=== PATIENT | male | born 1940 | race Caucasian/White ===

== ENCOUNTER → 2016-07-14 | Outpatient (CLI) | payer MEDICARE ==
--- NOTE | 2016-07-14 13:04 | US ---
EXAMINATION TYPE: US kidneys/renal and bladder DATE OF EXAM: 07/14/2016 12:25 PM COMPARISON: CT in pacs CLINICAL HISTORY: Incomplete Bladder Emptying R39.14. EXAM MEASUREMENTS: Right Kidney: 9.4 x 5.1 x 5.2 cm Left Kidney: 10.2 x 6.3 x 4.9 cm Post Void Residual Volume: 139.9 mL TECHNOLOGIST IMPRESSION: Right Kidney: small amount of fluid in renal pelvis Left Kidney: 1.0cm cystic area mid pole Bladder: irregular posterior bladder wall, enlarged prostate measuring 5.1 x 5.0 x 5.8cm indenting po sterior bladder wall Bilateral Jets seen: yes Normal Post Void Residual: no Gallbladder: multiple echogenic shadowing stones, wall measures wnl at 0.2cm The prostate is enlarged. Both ureteral jets were visualized. There is an abnormal post void residual of 139.9 mL. There is a 1 cm, simple appearing cyst in the mid polar region of the left kidney. There are gallstones within the gallbladder. IMPRESSION: 1. Simple appearing left renal cyst. 2. Prostatic enlargement. 3. Cholelithiasis.
== END | disposition home or self-care (01) ==
LOC: RADUSWWP 11:56
PROVIDERS: ATTEND Urology
DX: N40.1 Benign prostatic hyperplasia with lower urinary tract symptoms (principal); N28.1 Cyst of kidney, acquired; K80.20 Calculus of gallbladder without cholecystitis without obstruction; R39.14 Feeling of incomplete bladder emptying
CPT/HCPCS: 76770

== ENCOUNTER 2016-08-03 05:10 | Inpatient (IN) | payer MEDICARE ==
[2016-08-03] MEDS ORDERED: IPRATROPIUM-ALBUTEROL 3 ML NEB INHALATION STA (05:27)
[2016-08-03] MEDS ORDERED: methylPREDNISolone SOD SUCCI 125 MG/2 ML VIAL IV STA (05:27)
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
[2016-08-03 05:55] LABS: ALT 29 U/L (21-72); AST 22 U/L (17-59); Alkaline Phosphatase 49 U/L (38-126); Anion Gap 9 mmol/L; Basophils % (A) 1 %; Blood Urea Nitrogen 20 mg/dL (9-20); CH 33.8; CHCM 33.2; Calcium 8.8 mg/dL (8.4-10.2); Carbon Dioxide 26 mmol/L (22-30); Chloride 113 mmol/L (98-107); Eosinophils # (A) 0.3 k/uL (0-0.7); Eosinophils % (A) 4 %; Glucose 124 mg/dL (74-99); HCT 47.5 % (39.0-53.0); HDW 2.48; HGB 15.1 gm/dL (13.0-17.5); Luc # (Auto) 0.09; Luc % (Auto) 1; Lymphocytes # (A) 1.2 k/uL (1.0-4.8); Lymphocytes % (A) 15 %; MCH 32.6 pg (25.0-35.0); MCHC 31.9 g/dL (31.0-37.0); MCV 102.3 fL (80.0-100.0); Macrocytosis Slight; Mean Platelet Volume 7.8; Monocytes # (A) 0.4 k/uL (0-1.0); Monocytes % (A) 5 %; Neutrophils # (A) 5.8 k/uL (1.3-7.7); Neutrophils % (A) 73 %; Non-African American GFR(MDRD) 51 (>60 ml/min/1.73 sqM); Potassium 4.1 mmol/L (3.5-5.1); RBC 4.64 m/uL (4.30-5.90); RDW 13.7 % (11.5-15.5); Sodium 148 mmol/L (137-145); Total Bilirubin 1.2 mg/dL (0.2-1.3); Total Protein 6.2 g/dL (6.3-8.2); WBC 7.9 k/uL (3.8-10.6); WBC (Perox) 7.73
--- NOTE | 2016-08-03 06:03 | XR ---
EXAM: XR Chest, 1 View. CLINICAL HISTORY: Reason: difficulty breathing TECHNIQUE: Frontal view of the chest. COMPARISON: Chest x-ray dated 01/18/2016 FINDINGS: Lungs: Diffuse airspace opacities which likely represents pulmonary vascular congestion. No focal consolidation. Pleural space: No pleural effusion. No pneumothorax. Heart: Moderate enlargement of cardiomediastinal silhouette. Mediastinum: See above. Bones/joints: Degenerative changes of the osseous structures. IMPRESSION: Diffuse airspace opacities which likely represents pulmonary vascular congestion.
[2016-08-03 06:09] LABS: INR 1.1 (<1.1); Partial Thromboplastin Time 22.6 sec (22.0-30.0); Prothrombin Time 11.4 sec (9.0-12.0)
[2016-08-03 06:18] LABS: Creatine Kinase MB 1.2 ng/mL (0.0-2.4); Troponin I 0.031 ng/mL (0.000-0.034)
[2016-08-03] MEDS ORDERED: FUROSEMIDE 10 MG/ML 4 ML VIAL IV STA (06:24)
[2016-08-03] MEDS ORDERED: ASPIRIN 325 MG TAB PO STA (06:43)
[2016-08-03 07:27] LABS: Glucose,Whole Blood 124 mg/dL (75-99)
[2016-08-03 09:48] VITALS: BMI 22.6
[2016-08-03] MEDS: NITROGLYCERIN OINT 1 INCH/GM PACKET TOPICAL SCH ×4 (09:49→21:38)
[2016-08-03] MEDS ORDERED: MELATONIN 1 MG TAB PO PRN (11:06)
[2016-08-03] MEDS ORDERED: NITROGLYCERIN SL TABS 0.4 MG TAB SUBLINGUAL PRN (11:06)
[2016-08-03] MEDS ORDERED: ALBUTEROL NEBULIZED 2.5 MG/3 ML INHALATION PRN (11:06)
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
[2016-08-03] MEDS: CARVEDILOL 3.125 MG TAB PO SCH ×2 (12:26→17:18)
[2016-08-03] MEDS: CLOPIDOGREL 75 MG TAB PO SCH (12:26)
[2016-08-03] MEDS: SPIRONOLACTONE 25 MG TAB PO SCH (12:26)
[2016-08-03] MEDS: ATORVASTATIN 80 MG TAB PO SCH (12:26)
[2016-08-03] MEDS: FUROSEMIDE 10 MG/ML 4 ML VIAL IV SCH ×2 (14:24→21:38)
[2016-08-03] MEDS: LISINOPRIL 10 MG TAB PO SCH (14:24)
--- NOTE | 2016-08-03 22:36 | HP ---
Patient is a very pleasant 76-year-old gentleman who came in with complaints of shortness of breath. Patient is a difficult historian because of his significant hearing problems and these symptoms have been going on for about 2 to 3 days and denies any pedal edema. I am unable to get any history of orthopnea, PND. Patient denied any cough, runny nose, fever, chills and patient does not use any oxygen at home. In ER, patient was found to be in congestive heart failure with elevated JVD/ pulmonary edema, elevated BNP. His baseline creatinine is around 1.3 and patient's present creatinine is around that level. Patient had a stent to LAD in the past with impaired left ventricular systolic function of about 35% from his previous echocardiogram. Patient's shortness of breath did improve with IV Lasix. Patient takes 40 mg daily of Lasix at home and now he is on 40 IV q.8 hourly of Lasix with significant improvement in symptoms. REVIEW OF SYSTEMS: I am unable to obtain due to above-mentioned reasons. The rest of the 11 review of systems as mentioned in HPI. PAST MEDICAL HISTORY: Significant for coronary artery disease, asthma, gastroesophageal reflux disease, significant hearing problems, hyperlipidemia, hypertension, myocardial infarction in the past, benign prostatic hypertrophy. Patient had a cardiac catheterization and stent placement in the past, prostate surgery, tonsillectomy. SOCIAL HISTORY: Patient smokes 12 cigarettes per day. Denied any alcohol abuse or any drug abuse. FAMILY HISTORY: Patient was adopted, so family history is unknown. Home medications include: 1. Vitamin E. 2. Spironolactone. 3. Potassium chloride. 4. Nitroglycerin sublingual. 5. Melatonin. 6. Lisinopril. 7. Plavix. 8. Cholecalciferol. 9. Coreg. 10. Atorvastatin. 11. Aspirin. 12. Ascorbic acid and 13. Albuterol. PHYSICAL EXAMINATION: Temperature 96.9, pulse of 90, respiratory rate of 18, blood pressure is 120/91, saturating at 96% at room air. GENERAL: The patient is alert and oriented x3, not in any acute distress. Well developed, well nourished. HEENT: Pupils are round and equally reacting to light. EOMI. No scleral icterus. No conjunctival pallor. Normocephalic, atraumatic. No pharyngeal erythema. No thyromegaly. CARDIOVASCULAR: S1 and S2 present. Patient has a minimally elevated JVD. PULMONARY: Bibasilar crackles were heard. Fairly good air entry, bilateral lung calderon. No wheezing was appreciated. ABDOMEN: Soft, nontender, nondistended, normoactive bowel sounds. No palpable organomegaly. MUSCULOSKELETAL: No joint swelling or deformity. EXTREMITIES: No cyanosis, clubbing, or pedal edema. NEUROLOGICAL: Gross neurological examination did not reveal any focal deficits. SKIN: No rashes. LABORATORY DATA: As mentioned above, creatinine is at his baseline. MCV is 102 with normal hemoglobin. Sodium 148, chloride of 113. Chest x-ray as mentioned above. ASSESSMENT AND PLAN: 1. Congestive heart failure, chronic systolic dysfunction with acute exacerbation leading to acute hypoxic respiratory failure. Continue with IV Lasix along with spironolactone and lisinopril. 2. Asthma without any acute exacerbation. 3. History of coronary artery disease. Continue his home medications. The patient does not have any chest pain at this point of time. 4. Benign prostatic hypertrophy. 5. Hyperlipidemia. 6. Hypertension. 7. For above-mentioned chronic medical problems, at present continue above medications.
[2016-08-04 04:50] VITALS: BP 96/65; PULSE 66; RESP 14; TEMP 97.4
[2016-08-04] MEDS: FUROSEMIDE 10 MG/ML 4 ML VIAL IV SCH ×2 (04:50→14:24)
[2016-08-04 05:02] LABS: Potassium 3.8 mmol/L (3.5-5.1)
[2016-08-04] MEDS ORDERED: Potassium Replacement Protocol 1 EACH MISC MISCELLANE PRN (05:18)
[2016-08-04] MEDS ORDERED: POTASSIUM CHLORIDE ER 20 MEQ TAB.ER PO SCH (06:00)
[2016-08-04] MEDS ORDERED: ASPIRIN 325 MG TAB PO SCH (07:00)
[2016-08-04] MEDS: CLOPIDOGREL 75 MG TAB PO SCH (08:13)
[2016-08-04] MEDS: ATORVASTATIN 80 MG TAB PO SCH (08:13)
[2016-08-04] MEDS: SPIRONOLACTONE 25 MG TAB PO SCH (08:14)
[2016-08-04] MEDS: CARVEDILOL 3.125 MG TAB PO SCH (08:40)
[2016-08-04] MEDS: LISINOPRIL 10 MG TAB PO SCH (08:40)
[2016-08-04] MEDS ORDERED: CHOLECALCIFEROL 1,000 UNIT TAB PO SCH (09:00)
[2016-08-04] MEDS ORDERED: ASCORBIC ACID 500 MG TAB PO SCH (09:00)
--- NOTE | 2016-08-04 10:00 | ECHOF ---
Referral Reason:chf MEASUREMENTS -------- HEIGHT: 157.5 cm WEIGHT: 73.5 kg BP: 140/60 RVIDd: 3.2 cm (< 3.3) IVSd: 1.5 cm (0.6 - 1.1) LVIDd: 4.6 cm (3.9 - 5.3) LVPWd: 1.0 cm (0.6 - 1.1) IVSs: 1.5 cm LVIDs: 4.9 cm LVPWs: 1.5 cm LA Diam: 3.7 cm (2.7 - 3.8) LAESV Index (A-L): 53.99 ml/m Ao Diam: 3.7 cm (2.0 - 3.7) AV Cusp: 1.8 cm (1.5 - 2.6) LA Diam: 4.0 cm (2.7 - 3.8) MV EXCURSION: 17.701 mm (> 18.000) MV EF SLOPE: 75 mm/s (70 - 150) EPSS: 1.7 cm MV E Abdirahman: 0.72 m/s MV DecT: 116 ms MV A Abdirahman: 0.60 m/s MV E/A Ratio: 1.21 RAP: 5.00 mmHg RVSP: 25.39 mmHg FINDINGS -------- Undetermined rhythm. This was a technically adequate study. There is mild concentric left ventricular hypertrophy. There is severe global hypokinesis of LV . Overall left ventricular systolic function is severely impaired with, an EF between 20 - 25 %. The right ventricle is normal in size. LA is severely dilated >40 ml/m2 The right atrial size is normal. There is mild aortic valve sclerosis. There is no evidence of aortic regurgitation. Mild mitral annular calcification present. Mild mitral regurgitation is present. Mild tricuspid regurgitation present. There is no evidence of pulmonary hypertension. The right ventricular systolic pressure, as measured by Doppler, is 25.39mmHg. There is no pulmonic regurgitation present. The aortic root size is normal. There is no pericardial effusion. CONCLUSIONS -------- 1. There is mild concentric left ventricular hypertrophy. 2. The right ventricular systolic pressure, as measured by Doppler, is 25.39mmHg. 3. There is no pulmonic regurgitation present. 4. The aortic root size is normal. 5. There is no pericardial effusion. 6. There is severe global hypokinesis of LV . 7. Overall left ventricular systolic function is severely impaired with, an EF between 20 - 25 %. 8. LA is severely dilated >40 ml/m2 9. There is mild aortic valve sclerosis. 10. Mild mitral annular calcification present. 11. Mild mitral regurgitation is present. 12. Mild tricuspid regurgitation present. 13. There is no evidence of pulmonary hypertension. TECHNICAL SUPPORT DIRECTOR: Louisa Donahue RDCS
[2016-08-04] MEDS: NITROGLYCERIN OINT 1 INCH/GM PACKET TOPICAL SCH (11:53)
--- NOTE | 2016-08-04 13:12 | PN ---
This patient was admitted with symptoms of shortness of breath. Patient was found to be in congestive heart failure. Patient is feeling better. He denies any orthopnea or PND. Patient's respirations are not labored. Blood pressure is 102/68mmHg. HEART: S1 and S2 normal. Lungs are fairly clear to auscultation and percussion. Patient's electrolytes are normal. Creatinine is ( ). We will ambulate the patient and continue the patient on medications. Patient's echocardiogram reveals severely impaired left ventricular systolic function and he should be considered for AICD placement as an outpatient. We will discuss with Dr. Smauel Wright.
[2016-08-05] MEDS ORDERED: LISINOPRIL 5 MG TAB PO SCH (09:00)
--- NOTE | 2016-08-05 12:14 | DS ---
DATE OF ADMISSION: 08/03/2016 DATE OF DISCHARGE: 08/04/2016 The patient is a 76-year-old is admitted with congestive heart failure exacerbation. Patient has chronic systolic dysfunction. Patient will eventually need an AICD. Actually Cardiology is recommending one more day of hospitalization, but patient is declining to stay. Patient appears to be highly noncompliant with his medications and recommendations. Patient's present ejection fraction is 20% to 25%. Patient will require AICD soon. Patient has severe global hypokinesis and patient will be asked to follow with Dr. Samuel Wright in about a week. Patient has mild worsening of kidney function after diuresis, which is expected to improve as we are changing his Lasix, decreasing the dose and switching back to oral Lasix 40 mg daily. Patient is 40 IV t.i.d. of Lasix. Patient is euvolemic at this point of time, mildly hypotensive. Patient will be started on low dose of lisinopril and Aldactone. Patient will need repeat electrolytes in about 3 days. Extensive counseling was provided regarding management of congestive heart failure. CHF discharge instructions will be provided and patient will be discharged on cardiac diet. Patient was seen and examined on the day of discharge. Vitals are stable. PHYSICAL EXAMINATION: GENERAL: The patient is alert and oriented x3, not in any acute distress. Well developed, well nourished. HEENT: Pupils are round and equally reacting to light. EOMI. No scleral icterus. No conjunctival pallor. Normocephalic, atraumatic. No pharyngeal erythema. No thyromegaly. CARDIOVASCULAR: S1 and S2 present. No murmurs, rubs, or gallops. PULMONARY: Chest is clear to auscultation, no wheezing or crackles. ABDOMEN: Soft, nontender, nondistended, normoactive bowel sounds. No palpable organomegaly. MUSCULOSKELETAL: No joint swelling or deformity. EXTREMITIES: No cyanosis, clubbing, or pedal edema. NEUROLOGICAL: Gross neurological examination did not reveal any focal deficits. SKIN: No rashes. FINAL DIAGNOSES: 1. Congestive heart failure with chronic systolic dysfunction with acute exacerbation. 2. Asthma without any acute exacerbation. 3. History of coronary artery disease and patient has ischemic cardiomyopathy. Patient will need an AICD. 4. Benign prostatic hypertrophy. 5. Hyperlipidemia. 6. Hypertension. Patient needs to be optimized well before ( ) probably will benefit from evaluation by Cardiology before his BPH surgery. Discharge diet as mentioned above. Follow with Dr. Parmar in [address] Samuel Wright in about a week. Activity as tolerated. Repeat basic metabolic profile in about 3 days. Spent greater than 35 minutes in total discharge process.
== END 2016-08-04 16:18 | disposition home health service (06) | DRG 291 ==
LOC: EC 05:10 → 6ICU 06:45
PROVIDERS: ADMIT Internal Medicine; ATTEND Internal Medicine
DX: I11.0 Hypertensive heart disease with heart failure (principal); J96.01 Acute respiratory failure with hypoxia; I95.9 Hypotension, unspecified; I25.5 Ischemic cardiomyopathy; E78.5 Hyperlipidemia, unspecified; I50.23 Acute on chronic systolic (congestive) heart failure; F17.210 Nicotine dependence, cigarettes, uncomplicated; I25.10 Atherosclerotic heart disease of native coronary artery without angina pectoris; I25.2 Old myocardial infarction; J45.909 Unspecified asthma, uncomplicated; K21.9 Gastro-esophageal reflux disease without esophagitis; N40.0 Benign prostatic hyperplasia without lower urinary tract symptoms; H91.90 Unspecified hearing loss, unspecified ear; Z79.02 Long term (current) use of antithrombotics/antiplatelets; Z79.82 Long term (current) use of aspirin; Z79.899 Other long term (current) drug therapy; Z95.5 Presence of coronary angioplasty implant and graft; Z88.2 Allergy status to sulfonamides; Z91.19 Patient's noncompliance with other medical treatment and regimen
CPT/HCPCS: 36415; 71010; 80048; 80053; 82550; 82553; 82607; 83880; 84132; 84484; 85025; 85610; 85730; 93005; 93306; 94640; 96374; 96375; 99285

== ENCOUNTER 2016-08-12 11:50 | Day surgery (SDC) | payer MEDICARE ==
[2016-08-10 10:59] VITALS: BMI 22.3
[~2016-08-12 11:50] MED LIST: DEXAMETHASONE SOD PHOSPHATE 10 MG/ML 1 ML VIAL IV ONE; GENTAMICIN 100 MG in SODIUM CHLORIDE 0.9% 100 ML IVPB ONE; HYDROmorphone 1 MG/ML 1 ML SYRINGE IVP PRN; LACTATED RINGERS 1,000 ML IV SCH; MIDAZOLAM 2 MG/2 ML VIAL IV PRN; ONDANSETRON 4 MG/2 ML VIAL IVP ONE
[2016-08-12] MEDS ORDERED: LIDOCAINE 1% 20 ML VIAL (10MG/ML) FOR IV START INTRADERMA ONE (13:09)
[2016-08-12 13:13] LABS: Glucose,Whole Blood 82 mg/dL (75-99)
[2016-08-12] MEDS ORDERED: ROCURONIUM BROMIDE 10 MG/ML 10 ML VIAL IV ONE (13:32)
[2016-08-12] MEDS ORDERED: fentaNYL (PF) 50 MCG/ML 2 ML AMP ONE (13:32)
[2016-08-12] MEDS ORDERED: ETOMIDATE 2 MG/ML 10 ML VIAL ONE (13:32)
[2016-08-12] MEDS ORDERED: MIDAZOLAM 2 MG/2 ML VIAL ONE (13:32)
[2016-08-12] MEDS ORDERED: GLYCOPYRROLATE 0.2 MG/ML 2 ML VIAL ONE (13:32)
[2016-08-12] MEDS ORDERED: NEOSTIGMINE 1 MG/ML 10 ML VIAL ONE (13:32)
[2016-08-12] MEDS ORDERED: PHENYLEPHRINE-0.9% NACL SYG 1 MG/10 ML SYRINGE ONE (13:32)
[2016-08-12] MEDS ORDERED: SUCCINYLCHOLINE CHLORIDE 100 MG/5 ML SYR IV ONE (13:32)
[2016-08-12] MEDS ORDERED: ALBUTEROL NEBULIZED 2.5 MG/3 ML INHALATION PRN (15:21)
[2016-08-12] MEDS ORDERED: NITROGLYCERIN SL TABS 0.4 MG TAB SUBLINGUAL PRN (15:21)
[2016-08-12] MEDS ORDERED: ACETAMINOPHEN TAB 325 MG TAB PO PRN (15:22)
[2016-08-12] MEDS ORDERED: MAG HYDROX/AL HYDROX/SIMETH 30 ML CUP PO PRN (15:22)
[2016-08-12] MEDS ORDERED: BELLADONNA-OPIUM 16.2-60 MG 1 EACH SUPP RECTAL PRN (15:22)
--- NOTE | 2016-08-12 15:29 | P.OP ---
Date of Procedure: 08/12/16 Preoperative Diagnosis: BPH with obstruction Postoperative Diagnosis: Same Procedure(s) Performed: Bipolar TURP with plasma button Anesthesia: VERA Surgeon: Lucas Ruiz Estimated Blood Loss (ml): 50 Pathology: none sent Condition: stable Disposition: PACU Indications for Procedure: The patient is a 76-year-old gentleman with a known large prostate. He had a green light laser prostatectomy many years ago. He has marked obstructive symptoms again. Cystoscopy identifies a completely obstructing prostate with regrowth. Measures a 75 mL. He does have cardiac issues. He has seen cardiology. He has failed medical management for his voiding dysfunction. He wishes surgical procedure. He comes for a bipolar TURP if plasma button. He understands anesthetic risk due to his heart disease. Description of Procedure: The patient is brought to the operating suite and given a successful general endotracheal anesthesia. He's placed lithotomy position with a sterile prep and drape. The urethra is dilated to 30-Turkish with [place] sounds. Under direct vision the 25-Turkish sheath and Foroblique lens and direct vision obturator was introduced in the urethra. It is normal prostate shows marked lateral lobe obstruction especially apically and a small middle lobe. The bladder quezada heavily trabeculated. With the plasma button first vaporize the middle lobe. I then moved to 12:00 vaporize the left lateral lobe proximally down to capsule and in the left lateral lobe apically down to capsule. The right lateral lobe was markedly enlarged and the same thing is done proximally and distally. He then has a redundant amount of tissue on the floor of the prostate is of vaporize. At the end of procedure bleeding is controlled. I irrigate the latter out of necrotic debris. I reinspected the prostatic fossa and there is no active bleeding. I removed the resectoscope and coud the bladder with a very strong stream. A 20-Turkish coud-tip catheter 10 mL balloon is administered. The urine is irrigated and is clear. The patient's awakened and returned recovery room good condition. Blood loss is 50 mL. He received 500 mL of saline. He tolerated the procedure well and will be observed in the hospital overnight because of cardiac issues.
[2016-08-12] MEDS ORDERED: DEXTROSE 5%-0.45% NACL 1,000 ML IV SCH (15:30)
[2016-08-12] MEDS ORDERED: CARVEDILOL 6.25 MG TAB PO SCH (17:30)
[2016-08-12] MEDS ORDERED: DOCUSATE 100 MG CAP PO SCH (21:00)
[2016-08-13] MEDS ORDERED: ATORVASTATIN 80 MG TAB PO SCH (09:00)
[2016-08-13] MEDS ORDERED: SPIRONOLACTONE 25 MG TAB PO SCH (09:00)
--- NOTE | 2016-08-13 10:10 | P.DS ---
Providers Date of admission: 08/12/2016 Attending physician: Lucas Ruiz Primary care physician: Jose Yunier [facility] Course: The patient was brought to the hospital for a trans-urethral resection of his prostate. He underwent this without difficulty using the bipolar plasma button. Because of his cardiac issues he was kept in observation overnight. His urine has some tea color. He is having no pain. He'll be discharged home with an indwelling catheter. He'll follow-up in the office on Monday for catheter removal. He has been given instructions to rest this weekend. He will not resume his aspirin or Plavix until next week. Patient Condition at Discharge: Good Plan - Discharge Summary Discharge Medication List Ascorbic Acid [Vitamin C] 1,000 mg PO DAILY 08/03/16 [History] Cholecalciferol [Vitamin D3] 1,000 unit PO DAILY 08/03/16 [History] Melatonin 1 mg PO HS PRN 08/03/16 [History] Vitamin E 1,000 unit PO DAILY 08/03/16 [History] Albuterol Inhaler [Ventolin Hfa Inhaler] 1 - 2 puff INHALATION Q6HR PRN #1 inhaler 08/04/16 [Rx] Aspirin 81 mg PO DAILY #30 tab 08/04/16 [Rx] Atorvastatin [Lipitor] 80 mg PO DAILY #30 tab 08/04/16 [Rx] Clopidogrel [Plavix] 75 mg PO DAILY #30 tab 08/04/16 [Rx] Nitroglycerin Sl Tabs [Nitrostat] 0.4 mg SUBLINGUAL Q5M PRN #30 tab 08/04/16 [Rx ] Spironolactone [Aldactone] 25 mg PO DAILY #30 tab 08/04/16 [Rx] Carvedilol [Coreg] 6.25 mg PO BID 08/10/16 [History] Follow up Appointment(s)/Referral(s): Lucas Ruiz MD [STAFF PHYSICIAN] - 08/15/16 Activity/Diet/Wound Care/Special Instructions: Home with Zavala. Office to see me Monday. Hold aspirin and Plavix until I see the patient. Discharge Disposition: HOME SELF-CARE
[2016-08-13 10:55] VITALS: BP 108/76; PULSE 83; RESP 15; TEMP 99.2
== END 2016-08-13 11:10 | disposition home or self-care (01) ==
LOC: OR 11:50 → 3SUR 15:21 → OR 08-13 11:10
PROVIDERS: ATTEND Urology
DX: N40.1 Benign prostatic hyperplasia with lower urinary tract symptoms (principal); I25.10 Atherosclerotic heart disease of native coronary artery without angina pectoris; I11.0 Hypertensive heart disease with heart failure; I50.9 Heart failure, unspecified; F17.210 Nicotine dependence, cigarettes, uncomplicated; I25.2 Old myocardial infarction; Z95.5 Presence of coronary angioplasty implant and graft; J45.909 Unspecified asthma, uncomplicated; K21.9 Gastro-esophageal reflux disease without esophagitis; Z79.02 Long term (current) use of antithrombotics/antiplatelets; Z79.82 Long term (current) use of aspirin; Z79.899 Other long term (current) drug therapy; Z88.5 Allergy status to narcotic agent; Z88.2 Allergy status to sulfonamides
CPT/HCPCS: 52648; J2250; J1100; J2710; J2405; J3010; J1580; J2370; J0330

== ENCOUNTER 2016-08-15 22:50 | Emergency (ER) | payer MEDICARE ==
[2016-08-15 23:00] VITALS: RESP 18
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
[2016-08-16 00:09] VITALS: BP 129/91; PULSE 89; TEMP 97
== END 2016-08-16 00:11 | disposition home or self-care (01) ==
LOC: EC 22:50
DX: N99.89 Other postprocedural complications and disorders of genitourinary system (principal); R33.9 Retention of urine, unspecified; F17.200 Nicotine dependence, unspecified, uncomplicated; Z85.9 Personal history of malignant neoplasm, unspecified; Z88.2 Allergy status to sulfonamides; Z98.890 Other specified postprocedural states; Z79.899 Other long term (current) drug therapy; Y83.8 Other surgical procedures as the cause of abnormal reaction of the patient, or of later complication, without mention of misadventure at the time of the procedure
CPT/HCPCS: 51702; 99283

== ENCOUNTER → 2016-08-15 | Outpatient (CLI) | payer MEDICARE ==
[2016-08-15 10:42] LABS: Calcium 8.9 mg/dL (8.4-10.2); Potassium 4.6 mmol/L (3.5-5.1)
== END | disposition home or self-care (01) ==
LOC: LABWHC1 09:56
PROVIDERS: ATTEND Internal Medicine Interventional Cardiology
DX: I25.10 Atherosclerotic heart disease of native coronary artery without angina pectoris (principal); I50.9 Heart failure, unspecified
CPT/HCPCS: 36415; 80048

== ENCOUNTER 2016-10-10 02:07 | Emergency (ER) | payer MEDICARE ==
[2016-10-10 02:21] VITALS: TEMP 99.2
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
[2016-10-10 02:48] LABS: Basophils % (A) 1 %; CH 33.7; CHCM 33.2; Eosinophils # (A) 0.3 k/uL (0-0.7); Eosinophils % (A) 3 %; HCT 48.8 % (39.0-53.0); HDW 2.41; HGB 15.8 gm/dL (13.0-17.5); Luc # (Auto) 0.12; Luc % (Auto) 1; Lymphocytes # (A) 1.7 k/uL (1.0-4.8); Lymphocytes % (A) 17 %; MCHC 32.3 g/dL (31.0-37.0); MCV 102.1 fL (80.0-100.0); Macrocytosis Slight; Mean Platelet Volume 8.4; Monocytes # (A) 0.6 k/uL (0-1.0); Monocytes % (A) 6 %; Neutrophils % (A) 72 %; RBC 4.78 m/uL (4.30-5.90); RDW 13.5 % (11.5-15.5); WBC 9.7 k/uL (3.8-10.6); WBC (Perox) 9.76
[2016-10-10 02:58] LABS: INR 1.1 (<1.1); Prothrombin Time 11.2 sec (9.0-12.0)
[2016-10-10 03:00] LABS: ALT 32 U/L (21-72); AST 23 U/L (17-59); Alkaline Phosphatase 56 U/L (38-126); Anion Gap 8 mmol/L; Blood Urea Nitrogen 15 mg/dL (9-20); Calcium 9.2 mg/dL (8.4-10.2); Carbon Dioxide 25 mmol/L (22-30); Chloride 110 mmol/L (98-107); Glucose 100 mg/dL (74-99); Magnesium 2.2 mg/dL (1.6-2.3); Non-African American GFR(MDRD) 50 (>60 ml/min/1.73 sqM); Sodium 143 mmol/L (137-145); Total Bilirubin 2.4 mg/dL (0.2-1.3); Total Protein 6.5 g/dL (6.3-8.2)
--- NOTE | 2016-10-10 03:19 | XR ---
EXAM: XR Chest, 2 Views CLINICAL HISTORY: Difficulty breathing. TECHNIQUE: Frontal and lateral views of the chest. COMPARISON: Chest radiograph dated 08/03/16. FINDINGS: Lungs: No focal airspace consolidation. Mild pulmonary vascular congestion. Pleural space: No significant pleural effusion. No pneumothorax. Heart: Large cardiac silhouette. Bones/joints: Degenerative changes. IMPRESSION: 1. Large cardiac silhouette and mild pulmonary vascular congestion. 2. No significant pleural effusion.
[2016-10-10 03:26] LABS: Creatine Kinase MB 1.6 ng/mL (0.0-2.4); Troponin I 0.026 ng/mL (0.000-0.034)
[2016-10-10] MEDS ORDERED: FUROSEMIDE 10 MG/ML 4 ML VIAL IV STA (03:36)
[2016-10-10 03:42] VITALS: BP 107/76; PULSE 82; RESP 18
== END 2016-10-10 04:18 | disposition home or self-care (01) ==
LOC: EC 02:07
DX: J81.0 Acute pulmonary edema (principal); I25.10 Atherosclerotic heart disease of native coronary artery without angina pectoris; I50.9 Heart failure, unspecified; I10 Essential (primary) hypertension; I25.2 Old myocardial infarction; F17.210 Nicotine dependence, cigarettes, uncomplicated; Z86.718 Personal history of other venous thrombosis and embolism; Z95.5 Presence of coronary angioplasty implant and graft; Z88.2 Allergy status to sulfonamides; Z79.02 Long term (current) use of antithrombotics/antiplatelets; Z79.899 Other long term (current) drug therapy
CPT/HCPCS: 99285; 96374; 36415; 93005; 83880; 80053; 82550; 82553; 83735; 84484; 85025; 85610; 85730; 71020; J1940

== ENCOUNTER 2016-12-31 18:32 | Emergency (ER) | payer MEDICARE ==
[2016-12-31 18:45] VITALS: BP 105/72; PULSE 83; RESP 18; TEMP 100.8
[2016-12-31] MEDS ORDERED: DIPH,PERTUS(ACELL)TETVAC-LF 0.5 ML VIAL IM ONE (18:50)
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
== END 2016-12-31 19:41 | disposition home or self-care (01) ==
LOC: EC 18:32
DX: S91.331A Puncture wound without foreign body, right foot, initial encounter (principal); I11.0 Hypertensive heart disease with heart failure; I50.9 Heart failure, unspecified; I25.10 Atherosclerotic heart disease of native coronary artery without angina pectoris; I25.2 Old myocardial infarction; F17.200 Nicotine dependence, unspecified, uncomplicated; Z79.899 Other long term (current) drug therapy; Z88.2 Allergy status to sulfonamides; Z86.79 Personal history of other diseases of the circulatory system; Z23 Encounter for immunization; W45.0XXA Nail entering through skin, initial encounter
CPT/HCPCS: 90471; 90715; 99283

== ENCOUNTER 2017-01-12 18:41 | Emergency (ER) | payer MEDICARE ==
[2017-01-12 18:51] VITALS: BP 131/81; PULSE 75; RESP 18; TEMP 97.8
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
== END 2017-01-12 19:38 | disposition home or self-care (01) ==
LOC: EC 18:41
DX: S61.012A Laceration without foreign body of left thumb without damage to nail, initial encounter (principal); I11.0 Hypertensive heart disease with heart failure; I50.9 Heart failure, unspecified; I25.10 Atherosclerotic heart disease of native coronary artery without angina pectoris; F17.200 Nicotine dependence, unspecified, uncomplicated; Z79.899 Other long term (current) drug therapy; Z88.2 Allergy status to sulfonamides; W45.8XXA Other foreign body or object entering through skin, initial encounter; Y93.89 Activity, other specified
CPT/HCPCS: 12001; 99283

== ENCOUNTER 2017-02-16 18:57 | Inpatient (IN) | payer MEDICARE ==
[2017-02-16] MEDS ORDERED: ASPIRIN 81 MG PO STA (19:16)
[2017-02-16] MEDS ORDERED: MORPHINE SULFATE 2 MG/ML SYRINGE IVP STA (19:16)
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
[2017-02-16 19:26] LABS: Basophils % (A) 1 %; CH 33.6; CHCM 32.9; Eosinophils # (A) 0.4 k/uL (0-0.7); Eosinophils % (A) 6 %; HCT 47.2 % (39.0-53.0); HDW 2.31; HGB 15.4 gm/dL (13.0-17.5); Luc # (Auto) 0.12; Luc % (Auto) 2; Lymphocytes # (A) 1.7 k/uL (1.0-4.8); Lymphocytes % (A) 25 %; MCH 33.5 pg (25.0-35.0); MCHC 32.7 g/dL (31.0-37.0); MCV 102.4 fL (80.0-100.0); Macrocytosis Slight; Mean Platelet Volume 8.5; Monocytes # (A) 0.5 k/uL (0-1.0); Monocytes % (A) 8 %; Neutrophils # (A) 3.8 k/uL (1.3-7.7); Neutrophils % (A) 59 %; RDW 13.6 % (11.5-15.5); WBC 6.5 k/uL (3.8-10.6); WBC (Perox) 6.46
[2017-02-16 19:36] LABS: ALT 37 U/L (21-72); AST 24 U/L (17-59); Alkaline Phosphatase 60 U/L (38-126); Anion Gap 8 mmol/L; Blood Urea Nitrogen 20 mg/dL (9-20); Carbon Dioxide 26 mmol/L (22-30); Chloride 107 mmol/L (98-107); Glucose 106 mg/dL (74-99); Magnesium 2.2 mg/dL (1.6-2.3); Non-African American GFR(MDRD) 54 (>60 ml/min/1.73 sqM); Potassium 4.3 mmol/L (3.5-5.1); Sodium 141 mmol/L (137-145); Total Bilirubin 1.6 mg/dL (0.2-1.3); Total Protein 6.3 g/dL (6.3-8.2)
[2017-02-16 19:41] LABS: INR 1.1 (<1.2)
[2017-02-16 19:42] LABS: Partial Thromboplastin Time 23.5 sec (22.0-30.0); Prothrombin Time 11.3 sec (9.0-12.0)
--- NOTE | 2017-02-16 19:51 | XR ---
EXAMINATION TYPE: XR chest 2V DATE OF EXAM: 02/16/2017 COMPARISON: 10/10/2016 HISTORY: Chest pain TECHNIQUE: Frontal and lateral views of the chest are obtained. FINDINGS: Heart is enlarged. There is coarsening of interstitial markings. There is no pleural effus ion. Bony thorax is intact. Thoracic aorta is atheromatous. IMPRESSION: Cardiomegaly and pulmonary fibrotic changes. No definite acute lung disease. Inspiration is improved compared to old exam.
[2017-02-16 20:04] LABS: Creatine Kinase MB 1.7 ng/mL (0.0-2.4); Troponin I 0.013 ng/mL (0.000-0.034)
[2017-02-16] MEDS ORDERED: HEPARIN SODIUM,PORCINE 5,000 UNIT/ML 1 ML VIAL IV PRN (20:28)
[2017-02-16] MEDS ORDERED: HEPARIN SODIUM,PORCINE 5,000 UNIT/ML 1 ML VIAL IV ONE (20:28)
[2017-02-16] MEDS ORDERED: HEPARIN SODIUM,PORCINE/D5W PMX 25,000 UNIT in DEXTROSE/WATER 1 500ML.BAG IV SCH (20:30)
[2017-02-16] MEDS ORDERED: NALOXONE 0.4 MG/ML 1 ML VIAL IV PRN (20:38)
[2017-02-16] MEDS ORDERED: ONDANSETRON 4 MG/2 ML VIAL IVP PRN (20:38)
[2017-02-16] MEDS ORDERED: ACETAMINOPHEN TAB 325 MG TAB PO PRN (20:38)
[2017-02-16] MEDS ORDERED: MORPHINE SULFATE 4 MG/ML SYRINGE IV PRN (20:38)
[2017-02-16] MEDS ORDERED: SODIUM CHLORIDE 0.9% 1,000 ML IV SCH (20:45)
[2017-02-16 21:35] VITALS: BMI 21.5
[2017-02-17 02:49] LABS: Creatine Kinase MB 6.6 ng/mL (0.0-2.4); Troponin I 1.67 ng/mL (0.000-0.034)
[2017-02-17 08:42] LABS: Basophils % (A) 1 %; CH 33.3; CHCM 32.6; Eosinophils # (A) 0.3 k/uL (0-0.7); Eosinophils % (A) 5 %; HCT 47.3 % (39.0-53.0); HDW 2.32; HGB 15.3 gm/dL (13.0-17.5); Luc # (Auto) 0.08; Luc % (Auto) 2; Lymphocytes # (A) 1.2 k/uL (1.0-4.8); Lymphocytes % (A) 21 %; MCH 33.1 pg (25.0-35.0); MCHC 32.3 g/dL (31.0-37.0); MCV 102.6 fL (80.0-100.0); Macrocytosis Slight; Mean Platelet Volume 8.3; Monocytes # (A) 0.5 k/uL (0-1.0); Monocytes % (A) 8 %; Neutrophils # (A) 3.7 k/uL (1.3-7.7); Neutrophils % (A) 64 %; RBC 4.61 m/uL (4.30-5.90); RDW 13.6 % (11.5-15.5); WBC 5.8 k/uL (3.8-10.6); WBC (Perox) 6.07
[2017-02-17] MEDS ORDERED: NITROGLYCERIN SL TABS 0.4 MG TAB SUBLINGUAL PRN ×3 (08:54→14:00)
[2017-02-17] MEDS ORDERED: ASPIRIN 325 MG TAB PO STA (08:54)
[2017-02-17] MEDS ORDERED: ALPRAZolam 0.25 MG TAB PO PRN (08:54)
[2017-02-17] MEDS ORDERED: ALPRAZolam 0.5 MG TAB PO PRN (08:54)
[2017-02-17] MEDS ORDERED: ATORVASTATIN 80 MG TAB PO STA (08:54)
[2017-02-17 09:17] LABS: Creatine Kinase MB 9.9 ng/mL (0.0-2.4); Troponin I 2.25 ng/mL (0.000-0.034)
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
[2017-02-17] MEDS: SODIUM CHLORIDE 0.45% 1,000 ML IV SCH (10:03)
[2017-02-17] MEDS ORDERED: ALBUTEROL NEBULIZED 2.5 MG/3 ML INHALATION PRN ×2 (12:07→15:26)
[2017-02-17] MEDS ORDERED: SODIUM CHLORIDE 0.9% 1,000 ML IV ONE (12:43)
--- NOTE | 2017-02-17 12:53 | ECHOF ---
Referral Reason:chest pain MEASUREMENTS -------- HEIGHT: 157.5 cm WEIGHT: 71.7 kg BP: 92/69 RVIDd: 3.2 cm (< 3.3) IVSd: 1.1 cm (0.6 - 1.1) LVIDd: 5.9 cm (3.9 - 5.3) LVPWd: 1.1 cm (0.6 - 1.1) IVSs: 1.4 cm LVIDs: 5.9 cm LVPWs: 1.2 cm LA Diam: 4.4 cm (2.7 - 3.8) LAESV Index (A-L): 47.68 ml/m MV EXCURSION: 11.106 mm (> 18.000) MV EF SLOPE: 87 mm/s (70 - 150) EPSS: 2.4 cm MV E Abdirahman: 0.86 m/s MV DecT: 131 ms MV A Abdirahman: 0.41 m/s MV E/A Ratio: 2.12 AR PHT: 421 ms RAP: 5.00 mmHg RVSP: 53.70 mmHg FINDINGS -------- Sinus rhythm. This was a technically good study. Left ventricular wall thickness is normal. There is severe global hypokinesis of LV . Overall left ventricular systolic function is severely impaired with, an EF < 20%. Anterseptal Hypokinesis Inferior Hypokinesis Septal Hypokinesis [place] Hypokinesis. The right ventricle is normal in size. LA is severely dilated >40 ml/m2 The right atrial size is normal. There is mild aortic regurgitation. Ptmo-cy-ltaxwnht mitral regurgitation is present. Mild tricuspid regurgitation present. There is moderate pulmonary hypertension. The right ventricular systolic pressure, as measured by Doppler, is 53.70mmHg. Trace/mild (physiologic) pulmonic regurgitation. The aortic root size is normal. There is no pericardial effusion. CONCLUSIONS -------- 1. Left ventricular wall thickness is normal. 2. Zxvw-sc-botptxut mitral regurgitation is present. 3. Mild tricuspid regurgitation present. 4. There is moderate pulmonary hypertension. 5. The right ventricular systolic pressure, as measured by Doppler, is 53.70mmHg. 6. Trace/mild (physiologic) pulmonic regurgitation. 7. The aortic root size is normal. 8. There is no pericardial effusion. 9. There is severe global hypokinesis of LV . 10. Overall left ventricular systolic function is severely impaired with, an EF < 20%. 11. Anterseptal Hypokinesis 12. Inferior Hypokinesis 13. Septal Hypokinesis 14. [place] Hypokinesis. 15. LA is severely dilated >40 ml/m2 16. There is mild aortic regurgitation. [employer]: Louisa Donahue RDCS
[2017-02-17] MEDS ORDERED: MIDAZOLAM 2 MG/2 ML VIAL IV ONE (12:55)
[2017-02-17] MEDS ORDERED: diphenhydrAMINE 50 MG/ML 1 ML VIAL IVP ONE (12:55)
[2017-02-17] MEDS ORDERED: LIDOCAINE 2% INJ 20 MG/ML SQ ONE (13:00)
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
[2017-02-17] MEDS ORDERED: BIVALIRUDIN BOLUS 250 MG/50 ML IV ONE (13:17)
[2017-02-17] MEDS ORDERED: BIVALIRUDIN 250 MG in SODIUM CHLORIDE 0.9% 50 ML IV ONE (13:18)
[2017-02-17] MEDS ORDERED: CLOPIDOGREL 75 MG TAB PO ONE (13:41)
[2017-02-17] MEDS ORDERED: MORPHINE SULFATE 4 MG/ML SYRINGE IV ONE (13:44)
[2017-02-17] MEDS ORDERED: FUROSEMIDE 10 MG/ML 4 ML VIAL IV ONE (13:48)
[2017-02-17] MEDS ORDERED: IODIXANOL 320 MG/ML 100 ML INTRAARTER ONE (13:54)
[2017-02-17] MEDS ORDERED: ZOLPIDEM 5 MG TAB PO PRN (14:00)
[2017-02-17] MEDS ORDERED: ATROPINE SULFATE 0.1 MG/ML 10ML SYRINGE IV PRN (14:00)
[2017-02-17] MEDS ORDERED: SODIUM CHLORIDE 0.9% 1,000 ML IV SCH (14:00)
[2017-02-17] MEDS ORDERED: RX INFO: IV CONTRAST WAS GIVEN 1 EACH MISC MISCELLANE PRN (14:00)
[2017-02-17] MEDS ORDERED: MAG HYDROX/AL HYDROX/SIMETH 30 ML CUP PO PRN (14:00)
--- NOTE | 2017-02-17 15:05 | CC ---
CARDIAC CATHETERIZATION REPORT DATE OF SERVICE: 02/17/2017. PROCEDURE: Left heart catheterization, coronary angiography. Performed by Dr. Samuel Wright. CLINICAL INFORMATION: Mr. Brandon Jj is a gentleman who is 76 years of age, a smoker with history of hypertension, hypercholesterolemia and known ischemic cardiomyopathy with ejection fraction of less than 30%. In 2013, he presented with anterior MS, underwent stenting of this vessel by Dr. Chicas. He was advised ICD, but refused to have any ICD and understands the consequences. He presented to the hospital with chest pain and was in mild heart failure, he was evaluated by Dr. Dubon. He had elevated troponin suggestive of non-ST elevation MS, was advised cardiac catheterization and brought in for the procedure electively. After due discussion of risks, benefits, options, I proceeded to perform the procedure. . PROCEDURE NOTE: Under local anesthesia and strict aseptic precautions, a 6-Sinhala introducer was placed in the right femoral artery using a [place] catheter. I performed selective coronary angiography of the RCA which was totally occluded and nondominant. I then performed selective coronary angiography of the left system using a left-sided JL4 guide catheter. A pigtail catheter was used to check LV pressures. LV gram was not performed. Patient had a significant lesion involving the circumflex immediately after bifurcation involving the PLV branch. This was a dominant circumflex. Patient's LAD was widely patent. There was a second diagonal which had also moderate to diffuse disease. The LAD that was stented was widely patent. It was intervention that was performed in the same setting. CARDIAC CATHETERIZATION FINDINGS: The left ventricle end-diastolic pressure was about 32 mmHg. The patient was given additional Lasix. There was no gradient across the aortic valve. CORONARY ANGIOGRAPHY FINDINGS: Right coronary artery totally occluded vessel, nondominant, limited antegrade flow, similar to previous angiogram from 2014. Left main coronary artery: Short patent vessel that immediately trifurcates into LAD, circumflex and ramus intermedius. Left main itself is free of significant disease, but it is a very short vessel and circumflex comes off at a 90 degree angle. Left anterior descending coronary artery: This is a good caliber vessel extends along the antral wall, gives off a first diagonal branch and has mild disease and a second diagonal branch that has about a 80% to 90% stenosis. This is a small caliber, small distribution vessel. The LAD itself at the site of previous stenting is widely patent and runs all the way to the apex, supplies a sizable amount of myocardium, has no significant disease. There is a second septal, which has a diffuse disease and supplies a fair amount of myocardium and this may also be a culprit vessel. The ramus intermedius: This vessel has mild disease. No significant obstruction, has of some calcification. Fair amount of myocardium is being supplied by it, but has no significant disease. Left posterior circumflex coronary artery: A dominant vessel, has a moderate plaque in the proximal portion of about 35%, then the caliber improves and this gives off several obtuse marginal branches and distally bifurcates into PDA and PLV. The PLV branch has an eccentric 80% stenosis supplying a sizable amount of myocardium and several branches come off after this narrowing. The PLV branch of circumflex is a significantly diseased area which seems to supply a fair amount of myocardium. The circumflex is a dominant vessel. The PDA also has a moderate plaque, but no more than 40%. The PLV as it comes off from the main circumflex has a significant disease and then there is a minor diffuse disease in distal branches as well. This seems to be a significant lesion. Left ventriculogram: This was not performed. FINAL IMPRESSION: This patient has a left dominant system, totally occluded nondominant right coronary artery. Left anterior descending artery at the site of previous stenting is widely patent. Second septal branch is a tight stenosis, but small in caliber. The PLV branch of circumflex is of good caliber and distribution. It has a lot of myocardium being supplied by this with diffuse disease distally, but at as it comes off from the main circumflex, there is an 80% eccentric lesion. PDA also has mild plaque. This patient has elevated filling pressures. RECOMMENDATION: Patient was given some Lasix for elevated filling pressures. A minimal amount of fluid was given and also Visipaque dye was used. I recommended intervention of the PLV branch of circumflex and proceeded to perform this in the same setting. PTCA AND STENTING OF PLV BRANCH OF CIRCUMFLEX: Performed by Dr. Samuel Wright. A JL 4.5 guide catheter was used to cannulate the left coronary artery. A BMW J-tip guidewire was used to cross the lesion. The patient received Angiomax bolus and infusion and also 300 mg of Plavix was given as a loading dose. Patient was already on Plavix. I used a 2.25 caliber 8 mm long Xience stent and deployed this in the PLV branch as it came off from the circumflex. Patient did not have symptoms of chest pain, but excellent angiographic result was achieved with remarkably improved angiographic appearance and flow. There was no evident complication. The sheath was then taken out and a Perclose device used to secure hemostasis and was sent to the room in a stable condition. Excellent angiographic result without complication was achieved. Patient received Angiomax bolus and infusion, and also Plavix of 300 mg was given and he was already on Plavix. Moderate conscious sedation was provided for 69 minutes. Results were discussed with the patient and family and I expect that he will be discharged in the next 48 hours after his heart failure is addressed. SHEILA / SALAMN: [id number] /
--- NOTE | 2017-02-17 15:11 | LTR ---
DATE OF SERVICE: 02/17/2017 RE: Анна Brandon Dear. Dr. Parmar; Thank you for the opportunity to participate in the care of Mr. Jj. I am pleased to report to you that he had excellent angiographic result. PLV branch of dominant circumflex was stented. His previously stented LAD is widely patent. RCA is subtotally occluded, but this is a small nondominant branch. Patient has heart failure and prognosis remains poor and he has refused ICD. Continue on medical therapy with risk factor modification advised and I expect he will be discharge in the next 48 hours. Thank you for your referral and please call for questions. With kindest regards. Sincerely yours, MD SHEILA Weldon / VINICIO: [id number] /
[2017-02-17] MEDS: CARVEDILOL 6.25 MG TAB PO SCH (18:13)
[2017-02-18] MEDS: CARVEDILOL 6.25 MG TAB PO SCH ×2 (06:24→17:24)
[2017-02-18 06:31] LABS: Basophils % (A) 0 %; CH 34.1; CHCM 33.7; Eosinophils # (A) 0.3 k/uL (0-0.7); Eosinophils % (A) 5 %; HCT 45.2 % (39.0-53.0); HDW 2.31; HGB 15.1 gm/dL (13.0-17.5); Luc % (Auto) 2; Lymphocytes # (A) 1.1 k/uL (1.0-4.8); Lymphocytes % (A) 19 %; MCH 33.9 pg (25.0-35.0); MCHC 33.3 g/dL (31.0-37.0); MCV 101.6 fL (80.0-100.0); Macrocytosis Slight; Mean Platelet Volume 9.4; Monocytes # (A) 0.5 k/uL (0-1.0); Monocytes % (A) 8 %; Neutrophils # (A) 3.9 k/uL (1.3-7.7); Neutrophils % (A) 66 %; RBC 4.45 m/uL (4.30-5.90); RDW 14.4 % (11.5-15.5); WBC 5.9 k/uL (3.8-10.6); WBC (Perox) 5.38
[2017-02-18 06:42] LABS: Anion Gap 9 mmol/L; Blood Urea Nitrogen 20 mg/dL (9-20); Calcium 8.6 mg/dL (8.4-10.2); Carbon Dioxide 24 mmol/L (22-30); Chloride 106 mmol/L (98-107); Glucose 112 mg/dL (74-99); Non-African American GFR(MDRD) 50 (>60 ml/min/1.73 sqM); Potassium 3.9 mmol/L (3.5-5.1); Sodium 139 mmol/L (137-145)
[2017-02-18] MEDS ORDERED: ATORVASTATIN 80 MG TAB PO SCH (09:00)
[2017-02-18] MEDS ORDERED: CLOPIDOGREL 75 MG TAB PO SCH (09:00)
[2017-02-18] MEDS ORDERED: FUROSEMIDE 40 MG TAB PO SCH (09:00)
[2017-02-18] MEDS ORDERED: FUROSEMIDE 20 MG TAB PO SCH (09:00)
[2017-02-18] MEDS ORDERED: ASPIRIN 81 MG PO SCH (09:00)
[2017-02-18] MEDS ORDERED: LISINOPRIL 5 MG TAB PO SCH (09:00)
[2017-02-18] MEDS ORDERED: SPIRONOLACTONE 25 MG TAB PO SCH (09:00)
[2017-02-18] MEDS: SODIUM CHLORIDE 0.45% 1,000 ML IV SCH (09:22)
--- NOTE | 2017-02-18 12:57 | PN ---
PROGRESS NOTE Mr. Jj is a 76-year-old male with a history of severe cardiomyopathy who presented with non STEMI, underwent cardiac catheterization by Dr. Samuel Wright yesterday and underwent stenting with of his left PLV. He is doing well this morning. He is denying any symptoms of chest pain. His breathing has been stable. He denies any dizziness or palpitation. He denies any nausea. The patient has declined in the past any ICD. He continues to be at this time on aspirin once a day, Lipitor 80 mg daily, Coreg 6.25 mg twice a day, Plavix 75 mg daily, lisinopril 5 mg daily, Lasix 40 mg daily, spironolactone 25 mg daily. PHYSICAL EXAMINATION: Blood pressure 103/72 with the heart rate in the 70s. LUNGS: Clear. HEART: Regular rate and rhythm. S1, S2. No S3, no rubs. ABDOMEN: Soft, nontender. Right groin hematoma. LAB DATA: Lab data revealed BUN and creatinine 20 and 1.4. Potassium 3.9. Hemoglobin of 15.1. IMPRESSION: 1. Status post stenting of the left PLV. 2. Severe cardiomyopathy. 3. Hyperlipidemia. RECOMMENDATION: Patient's regimen will be continued and his level of activity will be increased. If he stable, I would expect he should be able to be discharged home tomorrow and follow up with Dr. Samuel Wright on an outpatient basis. MMCHRISTIANOL / VINICIO: [id number] /
--- NOTE | 2017-02-18 15:57 | P.PN ---
Subjective 76-year-old admitted secondary to non-ST elevation myocardial infarction, patient underwent cardiac catheterization and stenting of left the PLV. Patient is feeling much better patient is not in CHF exacerbation at this point of time. Patient denied any chest pain denied any nausea vomiting abdominal pain dysuria. Objective - Vital Signs Vital signs: Vital Signs Temp 97.5 F L 02/18/17 15:32 Pulse 65 02/18/17 15:36 Resp 16 02/18/17 15:36 BP 109/67 02/18/17 15:32 Pulse Ox 93 L 02/18/17 15:32 Intake & Output 02/17/17 02/18/17 02/18/17 18:59 06:59 18:59 Intake Total 366 1000 600 Output Total 2000 750 100 Balance -1634 250 500 Weight 62.9 kg 62.9 kg Intake: IV 126 1000 Sodium Chloride 0.9% 1, 0 1000 000 ml @ 50 mls/hr IV . Q20H NICOLE Rx#:[id number] Oral 240 600 Output: Urine 2000 750 100 Other: # Voids 1 - Exam GENERAL: The patient is alert and oriented x3, not in any acute distress. Well developed, well nourished. HEENT: Pupils are round and equally reacting to light. EOMI. No scleral icterus. No conjunctival pallor. Normocephalic, atraumatic. No pharyngeal erythema. No thyromegaly. CARDIOVASCULAR: S1 and S2 present. No murmurs, rubs, or gallops. PULMONARY: Chest is clear to auscultation, no wheezing , patient does have fine crackles bilaterally I did not appreciate any JVD ABDOMEN: Soft, nontender, nondistended, normoactive bowel sounds. No palpable organomegaly. MUSCULOSKELETAL: No joint swelling or deformity. EXTREMITIES: No cyanosis, clubbing, or pedal edema. NEUROLOGICAL: Gross neurological examination did not reveal any focal deficits. SKIN: No rashes. - Labs CBC & Chem 7: 02/18/17 05:28 02/18/17 05:28 Labs: Abnormal Lab Results - Last 24 Hours (Table) 02/18/17 02/18/17 Range/Units 05:28 05:28 MCV 101.6 H (80.0-100.0) fL Plt Count 131 L (150-450) k/uL Creatinine 1.40 H (0.66-1.25) mg/dL Glucose 112 H (74-99) mg/dL Assessment and Plan Plan: #1 non-ST elevation myocardial infarction: Patient is status post cardiac catheterization and stenting #2 ischemic cardiomyopathy congestive heart failure chronic systolic dysfunction ejection fraction of 20-25% not in acute exacerbation patient will be resumed on his home regimen of Lasix, all that on and lisinopril.patient is not in acute CHF exacerbation at this time #3 chronic kidney disease stage III secondary to hypertensive nephrosclerosis with a competent of possible cardiorenal syndrome.baseline creatinine around 1.3 #4 essential hypertension #5 on artery disease with stents to LAD in the past. #6pulmonary fibrosis #7 hyperlipidemia #8 hypertension #9 benign prostatic hypertrophy
[2017-02-19 06:10] LABS: Basophils % (A) 1 %; CHCM 33.1; Eosinophils # (A) 0.3 k/uL (0-0.7); Eosinophils % (A) 5 %; HCT 45.5 % (39.0-53.0); HDW 2.31; HGB 15.4 gm/dL (13.0-17.5); Luc # (Auto) 0.15; Luc % (Auto) 2; Lymphocytes # (A) 1.5 k/uL (1.0-4.8); Lymphocytes % (A) 22 %; MCH 33.9 pg (25.0-35.0); MCHC 33.9 g/dL (31.0-37.0); MCV 100.2 fL (80.0-100.0); Mean Platelet Volume 8.8; Monocytes # (A) 0.6 k/uL (0-1.0); Monocytes % (A) 8 %; Neutrophils # (A) 4.3 k/uL (1.3-7.7); Neutrophils % (A) 63 %; RBC 4.54 m/uL (4.30-5.90); RDW 13.4 % (11.5-15.5); WBC 6.9 k/uL (3.8-10.6); WBC (Perox) 7.14
[2017-02-19 06:26] LABS: Anion Gap 7 mmol/L; Blood Urea Nitrogen 21 mg/dL (9-20); Calcium 8.9 mg/dL (8.4-10.2); Carbon Dioxide 23 mmol/L (22-30); Chloride 108 mmol/L (98-107); Glucose 86 mg/dL (74-99); Non-African American GFR(MDRD) 54 (>60 ml/min/1.73 sqM); Potassium 4.2 mmol/L (3.5-5.1); Sodium 138 mmol/L (137-145)
[2017-02-19] MEDS: CARVEDILOL 6.25 MG TAB PO SCH (06:43)
[2017-02-19 08:09] VITALS: BP 88/62; PULSE 72; RESP 18; TEMP 97.5
--- NOTE | 2017-02-24 16:36 | P.DS ---
Providers Date of admission: 02/17/17 11:54 Attending physician: Guerita Elizondo Consults: 02/16/17 20:39 Consult Physician Urgent Consulting Provider: Ted Anthony Consult Reason/Comments: Unstable angina Do you want consulting provider notified?: Yes, Notify in am 02/17/17 14:00 Consult Physician Routine Consulting Provider: [facility] Consult Reason/Comments: Post Interventional patient Do you want consulting provider notified?: Already Contacted [facility] Patient left [place] Patient Condition at Discharge: Stable Plan - Discharge Summary New Discharge Prescriptions: No Action Atorvastatin [Lipitor] 80 mg PO DAILY #30 tab Clopidogrel [Plavix] 75 mg PO DAILY #30 tab Nitroglycerin Sl Tabs [Nitrostat] 0.4 mg SUBLINGUAL Q5M PRN #30 tab PRN Reason: Chest Pain Spironolactone [Aldactone] 25 mg PO DAILY #30 tab Carvedilol [Coreg] 6.25 mg PO BID Albuterol Inhaler [Ventolin Hfa Inhaler] 1 - 2 puff INHALATION RT-Q6H PRN PRN Reason: Difficulty breathing Potassium Chloride [Klor-Con 20] 20 meq PO DAILY Furosemide [Lasix] 20 mg PO DAILY Lisinopril [Prinivil] 5 mg PO DAILY Discharge Medication List Atorvastatin [Lipitor] 80 mg PO DAILY #30 tab 08/04/16 [Rx] Clopidogrel [Plavix] 75 mg PO DAILY #30 tab 08/04/16 [Rx] Nitroglycerin Sl Tabs [Nitrostat] 0.4 mg SUBLINGUAL Q5M PRN #30 tab 08/04/16 [Rx ] Spironolactone [Aldactone] 25 mg PO DAILY #30 tab 08/04/16 [Rx] Carvedilol [Coreg] 6.25 mg PO BID 08/10/16 [History] Albuterol Inhaler [Ventolin Hfa Inhaler] 1 - 2 puff INHALATION RT-Q6H PRN [History] Furosemide [Lasix] 20 mg PO DAILY 12/31/16 [History] Lisinopril [Prinivil] 5 mg PO DAILY 12/31/16 [History] Potassium Chloride [Klor-Con 20] 20 meq PO DAILY 12/31/16 [History] Follow up Appointment(s)/Referral(s): Chelsey Wright MD [STAFF PHYSICIAN] - 02/27/17 1:00 pm Yuan Parmar MD [Primary Care Provider] - 1-2 days Discharge Disposition: Left Against Medical Advice
== END 2017-02-19 09:21 | disposition left against medical advice (07) | DRG 247 ==
LOC: EC 18:57 → 3OBS 20:42 → OBSVTOIN 02-17 11:54 → 6SEL 02-17 13:54
PROVIDERS: ADMIT Hospitalist; ATTEND Hospitalist
PROC: B2111ZZ Fluoroscopy of Multiple Coronary Arteries using Low Osmolar Contrast (ICD-10-PCS; 2017-02-17)
PROC: 4A023N7 Measurement of Cardiac Sampling and Pressure, Left Heart, Percutaneous Approach (ICD-10-PCS; principal; 2017-02-17 13:00)
PROC: 027034Z Dilation of Coronary Artery, One Artery with Drug-eluting Intraluminal Device, Percutaneous Approach (ICD-10-PCS; 2017-02-17 13:00)
DX: I21.4 Non-ST elevation (NSTEMI) myocardial infarction (principal); I13.0 Hypertensive heart and chronic kidney disease with heart failure and stage 1 through stage 4 chronic kidney disease, or unspecified chronic kidney disease; I50.42 Chronic combined systolic (congestive) and diastolic (congestive) heart failure; J84.10 Pulmonary fibrosis, unspecified; I25.110 Atherosclerotic heart disease of native coronary artery with unstable angina pectoris; N18.3 Chronic kidney disease, stage 3 (moderate); I25.5 Ischemic cardiomyopathy; E78.5 Hyperlipidemia, unspecified; N40.0 Benign prostatic hyperplasia without lower urinary tract symptoms; F17.210 Nicotine dependence, cigarettes, uncomplicated; K21.9 Gastro-esophageal reflux disease without esophagitis; J45.909 Unspecified asthma, uncomplicated; H91.90 Unspecified hearing loss, unspecified ear; I44.7 Left bundle-branch block, unspecified; Z95.5 Presence of coronary angioplasty implant and graft; Z86.718 Personal history of other venous thrombosis and embolism; Z79.02 Long term (current) use of antithrombotics/antiplatelets; Z79.899 Other long term (current) drug therapy; Z90.79 Acquired absence of other genital organ(s); Z88.2 Allergy status to sulfonamides; I25.2 Old myocardial infarction; Z85.828 Personal history of other malignant neoplasm of skin; Z90.49 Acquired absence of other specified parts of digestive tract; Z71.6 Tobacco abuse counseling
CPT/HCPCS: 36415; 71020; 80048; 80053; 82272; 82550; 82553; 83735; 83880; 84484; 85025; 85610; 85730; 93005; 93306; 93458; 94640; 96365; 96366; 96375; 96376; 99285

== ENCOUNTER 2017-03-12 23:35 | Emergency (ER) | payer MEDICARE ==
[2017-03-12 23:39] VITALS: BP 122/89; PULSE 87; RESP 18; TEMP 99.1
[2017-03-12] MEDS ORDERED: IBUPROFEN 600 MG STARTER PACK 4 TAB BTL PO STA (23:51)
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
== END 2017-03-13 00:08 | disposition home or self-care (01) ==
LOC: EC 23:35
DX: G90.01 Carotid sinus syncope (principal); I25.10 Atherosclerotic heart disease of native coronary artery without angina pectoris; I11.0 Hypertensive heart disease with heart failure; I50.9 Heart failure, unspecified; H91.90 Unspecified hearing loss, unspecified ear; I25.2 Old myocardial infarction; F17.200 Nicotine dependence, unspecified, uncomplicated; Z85.828 Personal history of other malignant neoplasm of skin; Z79.899 Other long term (current) drug therapy; Z88.2 Allergy status to sulfonamides
CPT/HCPCS: 99283

== ENCOUNTER → 2017-04-03 | Outpatient (CLI) | payer MEDICARE ==
--- NOTE | 2017-04-04 06:51 | US ---
EXAMINATION TYPE: US thyroid st tissue head/neck DATE OF EXAM: 04/03/2017 COMPARISON: Carotid ultrasound March 23, 2017 CLINICAL HISTORY: E04.1 R thyroid nodule. GLAND SIZE: Right Lobe: 3.2 x 1.3 x 1.7 cm Overall Parenchyma: homogenous Left Lobe: 3.4 x 1.2 x 1.3 cm Overall Parenchyma: homogeneous Isthmus Thickness: 0.4 cm NODULES RIGHT: # of nodules measured on right: 1 1. 1.4 X 0.8 x 1.2 cm hypoechoic solid nodule at the mid pole with well-defined margins; . This no dule is taller than wide and shows intranodular vascularity. Prior size: No previous LEFT: # of nodules measured on left: 0 ISTHMUS: # of nodules measured in the isthmus: 0 Bilateral neck scanned, possible lymph node visualized in the left neck measuring 1.3 x 0.5 x 0.5 cm. Thyroid gland is overall small in size and homogeneous in echotexture. There is dominant 1.4 cm well- defined oval slightly hypoechoic solid nodule right thyroid lobe mid pole level posteriorly. No addit ional nodules are present bilaterally. Adjacent to left thyroid level well-circumscribed lesion with central hyperechoic area is felt to reflect prominent but benign-appearing lymph node. IMPRESSION: There is 1.4 cm hypoechoic solid nodule right thyroid lobe confirmed. TR5: (solid comp 2, hypoechoic 2, taller greater than wide 3)= 7 points. Advise ultrasound guided fine-needle aspiration to further evaluate.
== END | disposition home or self-care (01) ==
LOC: RADUSWWP 15:27
PROVIDERS: ATTEND Internal Medicine
DX: E04.1 Nontoxic single thyroid nodule (principal)
CPT/HCPCS: 76536

== ENCOUNTER → 2017-05-26 | Outpatient (CLI) | payer MEDICARE ==
[2017-05-26 14:48] LABS: Albumin 3.9 g/dL (3.5-5.0); Calcium 9.3 mg/dL (8.4-10.2); Potassium 4.3 mmol/L (3.5-5.1); Total Bilirubin 2.4 mg/dL (0.2-1.3); Total Protein 6.2 g/dL (6.3-8.2)
== END | disposition home or self-care (01) ==
LOC: LABWHC1 14:09
PROVIDERS: ATTEND Internal Medicine Interventional Cardiology
DX: I10 Essential (primary) hypertension (principal)
CPT/HCPCS: 36415; 80053

== ENCOUNTER → 2017-07-20 | Outpatient (CLI) | payer MEDICARE ==
[2017-07-20 15:20] LABS: Albumin 4.2 g/dL (3.5-5.0); Calcium 9.6 mg/dL (8.4-10.2); Potassium 4.8 mmol/L (3.5-5.1); Total Bilirubin 2.8 mg/dL (0.2-1.3); Total Protein 6.9 g/dL (6.3-8.2)
== END | disposition home or self-care (01) ==
LOC: LABWHC1 14:44
PROVIDERS: ATTEND Internal Medicine Interventional Cardiology
DX: E78.2 Mixed hyperlipidemia (principal)
CPT/HCPCS: 36415; 80053; 80061

== ENCOUNTER 2017-10-17 05:47 | Emergency (ER) | payer MEDICARE ==
--- NOTE | 2017-10-17 07:00 | XR ---
EXAM: XR Chest, 2 Views CLINICAL HISTORY: ITS.REASON XR Reason: cough TECHNIQUE: Frontal and lateral views of the chest. COMPARISON: 05/02/17 FINDINGS: Lungs: Mild interstitial prominence is noted which is slightly accentuated on the right, likely related to splinting towards that side. No consolidation. Pleural space: Unremarkable. No pneumothorax. Heart/Mediastinum: Cardiomegaly and central pulmonary venous congestion. Bones/joints: Mild degenerative disc changes slightly prominent thoracic kyphosis. IMPRESSION: 1.. Cardiomegaly with pulmonary venous congestion. Interstitial prominence is present, nonspecific with possible chronic aspect though superimposed infiltrate/edema not excluded.
[2017-10-17] MEDS ORDERED: DEXAMETHASONE SOD PHOSPHATE 10 MG/ML 1 ML VIAL IV STA (07:20)
[2017-10-17] MEDS ORDERED: IPRATROPIUM-ALBUTEROL 3 ML NEB INHALATION STA (07:20)
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
[2017-10-17 07:59] LABS: Anisocytosis Slight; Basophils % (A) 0 %; Eosinophils # (A) 0.1 k/uL (0-0.7); Eosinophils % (A) 2 %; HCT 46.2 % (39.0-53.0); HGB 15.2 gm/dL (13.0-17.5); Lymphocytes # (A) 0.6 k/uL (1.0-4.8); Lymphocytes % (A) 8 %; MCH 33.6 pg (25.0-35.0); MCV 101.9 fL (80.0-100.0); Macrocytosis Slight; Mean Platelet Volume 8.6; Monocytes # (A) 0.6 k/uL (0-1.0); Monocytes % (A) 8 %; Neutrophils # (A) 5.8 k/uL (1.3-7.7); Neutrophils % (A) 80 %; Platelet Count 118 k/uL (150-450); RBC 4.53 m/uL (4.30-5.90); RDW 16.2 % (11.5-15.5); WBC 7.3 k/uL (3.8-10.6)
[2017-10-17 08:09] LABS: Albumin 3.8 g/dL (3.5-5.0); Potassium 4.5 mmol/L (3.5-5.1); Total Bilirubin 4.6 mg/dL (0.2-1.3); Total Protein 6.3 g/dL (6.3-8.2)
[2017-10-17 08:27] LABS: INR 1.4 (<1.2); Partial Thromboplastin Time 23.3 sec (22.0-30.0); Prothrombin Time 12.8 sec (9.0-12.0)
[2017-10-17 08:55] LABS: Troponin I 0.051 ng/mL (0.000-0.034)
[2017-10-17 09:10] VITALS: RESP 16
[2017-10-17] MEDS ORDERED: FUROSEMIDE 10 MG/ML 2 ML VIAL IV STA (09:46)
[2017-10-17 09:56] VITALS: BP 103/71; PULSE 83; TEMP 97
[2017-10-17] MEDS ORDERED: FUROSEMIDE 10 MG/ML 4 ML VIAL IV STA (09:59)
== END 2017-10-17 10:10 | disposition home or self-care (01) ==
LOC: EC 05:47
DX: I13.0 Hypertensive heart and chronic kidney disease with heart failure and stage 1 through stage 4 chronic kidney disease, or unspecified chronic kidney disease (principal); I50.9 Heart failure, unspecified; N18.9 Chronic kidney disease, unspecified; J44.9 Chronic obstructive pulmonary disease, unspecified; I25.10 Atherosclerotic heart disease of native coronary artery without angina pectoris; I25.2 Old myocardial infarction; F17.200 Nicotine dependence, unspecified, uncomplicated; Z86.718 Personal history of other venous thrombosis and embolism; Z85.828 Personal history of other malignant neoplasm of skin; Z95.5 Presence of coronary angioplasty implant and graft; Z79.02 Long term (current) use of antithrombotics/antiplatelets; Z79.899 Other long term (current) drug therapy; Z79.51 Long term (current) use of inhaled steroids; Z88.2 Allergy status to sulfonamides
CPT/HCPCS: 36415; 94640; 93005; 83880; 80053; 82550; 82553; 83605; 83735; 84484; 85025; 85610; 85730; 87040; 71046; 99284; 96374; 96375; J1100; J1940

== ENCOUNTER 2018-02-04 17:52 | Emergency (ER) | payer MEDICARE ==
[2018-02-04 18:01] VITALS: BP 97/70; PULSE 86; RESP 16; TEMP 98.3
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
== END 2018-02-04 18:28 | disposition home or self-care (01) ==
LOC: EC 17:52
DX: L02.213 Cutaneous abscess of chest wall (principal); I25.119 Atherosclerotic heart disease of native coronary artery with unspecified angina pectoris; J45.909 Unspecified asthma, uncomplicated; I11.0 Hypertensive heart disease with heart failure; I50.9 Heart failure, unspecified; K21.9 Gastro-esophageal reflux disease without esophagitis; H91.90 Unspecified hearing loss, unspecified ear; I10 Essential (primary) hypertension; I25.2 Old myocardial infarction; F32.9 Major depressive disorder, single episode, unspecified; F17.200 Nicotine dependence, unspecified, uncomplicated; Z85.828 Personal history of other malignant neoplasm of skin; Z86.718 Personal history of other venous thrombosis and embolism; Z79.51 Long term (current) use of inhaled steroids; Z79.899 Other long term (current) drug therapy; Z88.2 Allergy status to sulfonamides; Z95.5 Presence of coronary angioplasty implant and graft
CPT/HCPCS: 10060; 87070; 87205; 99283

== ENCOUNTER → 2018-04-06 | Outpatient (CLI) | payer MEDICARE ==
[2018-04-06 11:58] LABS: Albumin/Globulin Ratio 1.9 (1.20-2.10); Bilirubin, Conjugated 0.6 mg/dL (0.20-0.40); Bilirubin,Unconjugated 1.2 mg/dL; Globulin 2.1 g/dL (2.1-3.7); LDL Cholesterol,Calculated 45.4 mg/dL (0.0-131.0); Total Bilirubin 1.8 mg/dL (0.3-1.2); Total Protein 6.1 g/dL (6.2-8.2); VLDL Calculation 12.6 mg/dL (5.00-40.00)
[2018-04-06 11:59] LABS: Anion Gap 6.3 mmol/L (4.00-12.00); Carbon Dioxide 28.7 mmol/L (21.6-31.8); Potassium 4.7 mmol/L (3.5-5.5)
== END | disposition home or self-care (01) ==
LOC: LABWHC1 06:37
PROVIDERS: ATTEND Internal Medicine Interventional Cardiology
DX: I25.5 Ischemic cardiomyopathy (principal); E78.2 Mixed hyperlipidemia
CPT/HCPCS: 36415; 80048; 80061; 80076

== ENCOUNTER → 2018-04-23 | Outpatient (CLI) | payer MEDICARE ==
--- NOTE | 2018-04-24 08:29 | MM ---
Reason for exam: clinical finding. Indicated problem(s): lump or thickening and pain in the left breast. Physical Findings: Nurse did not find any significant physical abnormalities on exam. MG 3D Diag Mammo W/Cad CASSANDRA Bilateral CC and MLO view(s) were taken. Retroareolar flame shaped left density is most mammographically compatible with gynecomastia. These results were verbally communicated with the patient and result sheet given to the patient on 04/23/18. ASSESSMENT: Benign, BI-RAD 2 RECOMMENDATION: Clinical management of both breasts. Manage on a clinical basis with regard to left gynecomastia appearance if further increased or further concern re-evaluation could be performed.
--- NOTE | 2018-04-24 08:30 | USB ---
Reason for exam: clinical finding. US Breast LT Left complete breast ultrasound includes all four quadrants, the retroareolar region and axilla. Finding demonstrates a 1.9 x 3.1cm irregular lesion at posterior nipple, appears as gynecomastia. These results were verbally communicated with the patient and result sheet given to the patient on 04/23/18. ASSESSMENT: Benign, BI-RAD 2 RECOMMENDATION: Clinical management of the left breast. Manage patient on a clinical basis.
== END ==
LOC: RADMAMWWP 14:20
PROVIDERS: ATTEND Surgery Plastic and Reconstructive Surgery
DX: N64.52 Nipple discharge (principal); N64.4 Mastodynia
CPT/HCPCS: 77066; 76641; G0279; 77062

== ENCOUNTER 2018-05-18 10:59 | Emergency (ER) | payer MEDICARE ==
[2018-05-18 11:03] VITALS: BP 103/79; PULSE 75; RESP 20; TEMP 97.8
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
[2018-05-18 11:31] LABS: Appearance,Urine Clear (Clear); Bilirubin,Urine Negative (Negative); Blood,Urine Negative (Negative); Color,Urine Light Yellow; Glucose,Urine (UA) Negative (Negative); Ketones,Urine Negative (Negative); Leukocyte Esterase,Urine Negative (Negative); Nitrite,Urine Negative (Negative); Protein,Urine Negative (Negative); Specific Gravity,Urine 1.008 (1.001-1.035); Urobilinogen,Urine <2.0 mg/dL (<2.0)
--- NOTE | 2018-05-18 11:54 | CT ---
EXAMINATION TYPE: CT abdomen pelvis wo con DATE OF EXAM: 05/18/2018 HISTORY: Right lower quadrant pain into back. CT DLP: 355.4 mGycm. Automated Exposure Control for Dose Reduction was Utilized. TECHNIQUE: CT scan of the abdomen and pelvis is performed without oral or IV contrast. COMPARISON: CT urogram June 05, 2013 FINDINGS: Within the limitations of a non-contrast study, the following observations are made. LUNG BASES: Cardiomegaly is present. There is patchy left basilar linear scarring and/or atelectasis. LIVER/GB: Gallstones are redemonstrated in gallbladder without surrounding inflammatory change. Gallb ladder has distended margins. PANCREAS: Pancreatic duct is visualized and slightly more prominent or enlarged and pancreatic head m easuring up to 6 to 7 mm axial image 28. No obvious obstructing mass seen on noncontrast CT. No surro unding inflammatory change noted. No suspicious biliary dilatation is seen. Pancreatic duct is less p rominent proximal and distal to this. SPLEEN: No significant abnormality is seen. ADRENALS: Low dense thickening to both adrenal glands, left greater than right favors benign hyperpla lety. KIDNEYS: No renal stones or hydronephrosis is present. Mild wall thickening and bladder is presumed r elated to outlet obstruction from enlarged prostate gland. A few scattered pelvic phleboliths are pre sent. BOWEL: Evaluation bowel is suboptimal secondary to lack of enteric contrast. There is no suspicious s mall or large bowel dilatation. There is redundancy of the colon noted. No obvious inflammatory escudero e in the right abdomen is identified. Appendix difficult to visualize with certainty due to wandering cecum and colonic redundancy. GENITAL ORGANS: Prostate gland is markedly enlarged in size bulging on bladder base, underlying BPH i s felt present. LYMPH NODES: No greater than 1cm abdominal or pelvic lymph nodes are appreciated. OSSEOUS STRUCTURES: Moderate multilevel spurring in the spine is seen there is moderate to advanced d isc space narrowing lumbosacral junction now noted. There is prominent facet arthropathy in the lower lumbar spine. OTHER: Abdominal aorta is ectatic measuring up to 2.9 cm transversely axial image 65 with mild to mod erate calcified plaque extending into iliac arteries. Distal left common iliac artery measures 2.1 cm in diameter on axial image 83. All findings more prominent from 2014 CT. IMPRESSION: 1. No renal stones or hydronephrosis is seen bilaterally. No suspicious new or acute finding clearly seen to account for patient's symptoms of right-sided pain. 2. New enlargement of portion of main pancreatic duct, differential includes main branch IPMN, advise nonemergent GI referral to assess for possible ERCP/MRCP. 3. Increasing prominent ectatic abdominal aorta and iliac artery branches.
== END 2018-05-18 12:13 | disposition home or self-care (01) ==
LOC: EC 10:59
DX: M54.5 Low back pain (principal); R10.9 Unspecified abdominal pain; I25.10 Atherosclerotic heart disease of native coronary artery without angina pectoris; I11.0 Hypertensive heart disease with heart failure; I50.9 Heart failure, unspecified; I25.2 Old myocardial infarction; F17.200 Nicotine dependence, unspecified, uncomplicated; Z95.5 Presence of coronary angioplasty implant and graft; Z85.828 Personal history of other malignant neoplasm of skin; Z79.899 Other long term (current) drug therapy; Z88.2 Allergy status to sulfonamides
CPT/HCPCS: 74176; 81003; 99284

== ENCOUNTER 2018-11-25 18:38 | Emergency (ER) | payer MEDICARE ==
[2018-11-25 18:47] VITALS: RESP 18
[2018-11-25] MEDS ORDERED: SODIUM CHLORIDE 0.9% 1,000 ML IV STA (19:14)
[2018-11-25] MEDS ORDERED: SODIUM CHLORIDE 0.9% 500 ML 500 ML IV STA (19:14)
[2018-11-25 19:59] LABS: Basophils % (A) 1 %; Eosinophils # (A) 0.2 k/uL (0-0.7); Eosinophils % (A) 4 %; HCT 44.4 % (39.0-53.0); HGB 14.5 gm/dL (13.0-17.5); Lymphocytes # (A) 0.9 k/uL (1.0-4.8); Lymphocytes % (A) 14 %; MCH 32.7 pg (25.0-35.0); MCHC 32.6 g/dL (31.0-37.0); MCV 100.4 fL (80.0-100.0); Macrocytosis Slight; Mean Platelet Volume 9.8; Monocytes # (A) 0.5 k/uL (0-1.0); Monocytes % (A) 7 %; Neutrophils # (A) 4.7 k/uL (1.3-7.7); Neutrophils % (A) 73 %; Platelet Count 120 k/uL (150-450); RBC 4.43 m/uL (4.30-5.90); RDW 15.4 % (11.5-15.5); WBC 6.4 k/uL (3.8-10.6)
[2018-11-25 20:03] LABS: Appearance,Urine Clear (Clear); Bilirubin,Urine Negative (Negative); Blood,Urine Trace (Negative); Color,Urine Yellow; Glucose,Urine (UA) Negative (Negative); Hyaline Casts,Urine 7 /lpf (0-2); Ketones,Urine Negative (Negative); Leukocyte Esterase,Urine Trace (Negative); Mucus,Urine Rare /hpf; Nitrite,Urine Negative (Negative); Protein,Urine 1+ (Negative); RBC,Urine 13 /hpf (0-5); Specific Gravity,Urine 1.019 (1.001-1.035); Urobilinogen,Urine <2.0 mg/dL (<2.0); WBC,Urine 3 /hpf (0-5)
[2018-11-25 20:13] LABS: INR 1.2 (<1.2); Partial Thromboplastin Time 25.2 sec (22.0-30.0); Prothrombin Time 12.5 sec (9.0-12.0)
[2018-11-25 20:16] LABS: Albumin 3.6 g/dL (3.5-5.0); Calcium 8.8 mg/dL (8.4-10.2); Potassium 4.4 mmol/L (3.5-5.1); Total Bilirubin 2.9 mg/dL (0.2-1.3); Total Protein 6.1 g/dL (6.3-8.2)
--- NOTE | 2018-11-25 20:17 | XR ---
EXAMINATION TYPE: XR KUB DATE OF EXAM: 11/25/2018 COMPARISON: NONE HISTORY: Constipation. Abdominal pain for 3 weeks. TECHNIQUE: 2 views upright FINDINGS: Heart is moderately enlarged. Lung bases are clear. There is no sign of intestinal obstruct ion or pneumoperitoneum. Fecal pattern is fairly normal. There are no pathologic calcifications. IMPRESSION: Nonacute abdomen. Cardiomegaly.
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
[2018-11-25] MEDS ORDERED: ACETAMINOPHEN TAB 500 MG TAB PO STA (22:21)
[2018-11-25 22:44] VITALS: BP 120/89; PULSE 83; TEMP 98
== END 2018-11-25 22:45 | disposition home or self-care (01) ==
LOC: EC 18:38
DX: R10.9 Unspecified abdominal pain (principal); M54.5 Low back pain; I11.0 Hypertensive heart disease with heart failure; I50.9 Heart failure, unspecified; I25.119 Atherosclerotic heart disease of native coronary artery with unspecified angina pectoris; F17.200 Nicotine dependence, unspecified, uncomplicated; H91.90 Unspecified hearing loss, unspecified ear; I25.2 Old myocardial infarction; Z88.2 Allergy status to sulfonamides; Z79.899 Other long term (current) drug therapy; Z95.5 Presence of coronary angioplasty implant and graft; Z85.828 Personal history of other malignant neoplasm of skin
CPT/HCPCS: 36415; 74018; 80053; 81001; 82150; 83690; 84484; 85025; 85610; 85730; 93005; 96360; 96361; 99284

== ENCOUNTER 2018-11-30 12:29 | Inpatient (IN) | payer MEDICARE ==
[2018-11-30] MEDS ORDERED: SODIUM CHLORIDE 0.9% 1,000 ML IV ONE (12:39)
[2018-11-30] MEDS ORDERED: SODIUM CHLORIDE 0.9% 500 ML 500 ML IV ONE (12:39)
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
[2018-11-30 13:04] LABS: Basophils % (A) 1 %; Eosinophils # (A) 0.1 k/uL (0-0.7); Eosinophils % (A) 2 %; HCT 45.5 % (39.0-53.0); HGB 14.9 gm/dL (13.0-17.5); Lymphocytes # (A) 0.9 k/uL (1.0-4.8); Lymphocytes % (A) 14 %; MCH 33.5 pg (25.0-35.0); MCHC 32.8 g/dL (31.0-37.0); MCV 102.1 fL (80.0-100.0); Macrocytosis Slight; Mean Platelet Volume 9.7; Monocytes # (A) 0.5 k/uL (0-1.0); Monocytes % (A) 8 %; Neutrophils # (A) 4.6 k/uL (1.3-7.7); Neutrophils % (A) 74 %; Platelet Count 111 k/uL (150-450); RBC 4.46 m/uL (4.30-5.90); RDW 14.4 % (11.5-15.5); WBC 6.3 k/uL (3.8-10.6)
[2018-11-30 13:14] LABS: Albumin 3.7 g/dL (3.5-5.0); INR 1.3 (<1.2); Magnesium 2.2 mg/dL (1.6-2.3); Partial Thromboplastin Time 25.6 sec (22.0-30.0); Potassium 4.7 mmol/L (3.5-5.1); Prothrombin Time 13.6 sec (9.0-12.0); Total Bilirubin 3.3 mg/dL (0.2-1.3); Total Protein 6.2 g/dL (6.3-8.2)
[2018-11-30 13:27] LABS: Lactic Acid, Venous 2.1 mmol/L (0.7-2.0)
--- NOTE | 2018-11-30 13:33 | CT ---
EXAMINATION TYPE: CT brain wo con DATE OF EXAM: 11/30/2018 COMPARISON: None HISTORY: Altered mental status changes CT DLP: 1054.4 mGycm Automated exposure control for dose reduction was used. FINDINGS: Mild to moderate generalized degenerative change. Low-attenuation the white matter is noted. No acute hemorrhage or mass effect. Intracranial atherosclerotic changes are noted. IMPRESSION: DEGENERATIVE AND NONSPECIFIC WHITE MATTER ATTENUATION SUGGESTIVE OF REMOTE MICROVASCULAR ISCHEMIA.
--- NOTE | 2018-11-30 13:36 | XR ---
EXAMINATION TYPE: XR chest 2V DATE OF EXAM: 11/30/2018 COMPARISON: 10/17/2017 INDICATION: Altered mental status TECHNIQUE: Frontal and lateral views of the chest are obtained. FINDINGS: The heart size is mildly prominent, slightly diminished from comparison. The pulmonary vasculature is normal. Minimal plate atelectasis at the right base. A small nodule or nipple shadows the right lung base.. IMPRESSION: 1. Minimal atelectasis right costophrenic angle. 2. Suspected the right lung base. Follow-up chest study with nipple markers could be performed for co nfirmation. 3. Mild cardiomegaly
[2018-11-30 13:47] LABS: Ammonia <9 umol/L (<30)
[2018-11-30] MEDS ORDERED: NITROGLYCERIN SL TABS 0.4 MG TAB SUBLINGUAL PRN (14:39)
[2018-11-30] MEDS ORDERED: CYCLOBENZAPRINE 10 MG TAB PO PRN (14:46)
[2018-11-30] MEDS ORDERED: FUROSEMIDE 40 MG TAB PO SCH (16:00)
[2018-11-30] MEDS: SODIUM CHLORIDE 0.9% 1,000 ML IV SCH (16:03)
[2018-11-30] MEDS: CARVEDILOL 6.25 MG TAB PO SCH (17:41)
[2018-11-30] MEDS: ATORVASTATIN 40 MG TAB PO SCH (19:53)
[2018-11-30 20:00] LABS: Amorphous Sediment,Urine Occasional /hpf; Appearance,Urine Clear (Clear); Bilirubin,Urine Negative (Negative); Blood,Urine Negative (Negative); Color,Urine Yellow; Glucose,Urine (UA) Negative (Negative); Hyaline Casts,Urine 9 /lpf (0-2); Ketones,Urine Negative (Negative); Leukocyte Esterase,Urine Negative (Negative); Mucus,Urine Few /hpf; Nitrite,Urine Negative (Negative); PH, Urine 5.5 (5.0-8.0); Protein,Urine 1+ (Negative); RBC,Urine 2 /hpf (0-5); Specific Gravity,Urine 1.021 (1.001-1.035); Squamous Epithelial Cell,Urine <1 /hpf (0-4); WBC,Urine 2 /hpf (0-5)
[2018-11-30 20:09] LABS: Amphetamine Screen,Urine Not Detected (NotDetected); Benzodiazepines Screen,Urine Not Detected (NotDetected); Cocaine Screen,Urine Not Detected (NotDetected); Opiate Screen,Urine Detected (NotDetected); Phencyclidine Screen,Urine Not Detected (NotDetected); Urn Cannabinoid Scrn Not Detected (NotDetected)
[2018-11-30 20:10] LABS: Barbiturate Screen,Urine Not Detected (NotDetected); Methadone Screen, Urine Not Detected (NotDetected); Oxycodone Screen, Urine Not Detected (NotDetected); Tricyclic Antidepressant,Urine Detected (NotDetected)
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
[2018-11-30] MEDS: HEPARIN SODIUM,PORCINE 5,000 UNIT/ML 1 ML VIAL SQ SCH (23:13)
[2018-12-01] MEDS: SODIUM CHLORIDE 0.9% 1,000 ML IV SCH ×4 (02:17→21:20)
[2018-12-01 06:40] LABS: Basophils % (A) 1 %; Eosinophils # (A) 0.1 k/uL (0-0.7); Eosinophils % (A) 2 %; HCT 41.6 % (39.0-53.0); HGB 13.2 gm/dL (13.0-17.5); Lymphocytes # (A) 0.8 k/uL (1.0-4.8); Lymphocytes % (A) 13 %; MCH 32.7 pg (25.0-35.0); MCHC 31.7 g/dL (31.0-37.0); MCV 103.2 fL (80.0-100.0); Macrocytosis Slight; Monocytes # (A) 0.4 k/uL (0-1.0); Monocytes % (A) 7 %; Neutrophils # (A) 4.6 k/uL (1.3-7.7); Neutrophils % (A) 76 %; Platelet Count 122 k/uL (150-450); RBC 4.03 m/uL (4.30-5.90); RDW 14.6 % (11.5-15.5)
[2018-12-01 06:55] LABS: Albumin 3.3 g/dL (3.5-5.0); Calcium 8.8 mg/dL (8.4-10.2); Potassium 4.4 mmol/L (3.5-5.1); Total Bilirubin 3.3 mg/dL (0.2-1.3); Total Protein 5.6 g/dL (6.3-8.2)
--- NOTE | 2018-12-01 08:33 | US ---
EXAMINATION TYPE: US liver DATE OF EXAM: 12/01/2018 COMPARISON: CT abdomen and pelvis May 18, 2018 CLINICAL HISTORY: hyperbilirubinemia; low back pain radiating down right leg EXAM MEASUREMENTS: Liver Length: 17.2 cm Gallbladder Wall: 0.4 cm CBD: 0.4 cm Right Kidney: 9.3 x 6.4 x 4.6 cm Pancreas: appears wnl, but SMV is upper limits of normal (1.0cm) at pancreatic head Liver: no masses seen Gallbladder: shadowing gallstone(s) and sludge is imaged with pericholecystic fluid noted on multipl e images; thickened wall Evidence for sonographic Mari's sign: no CBD: wnl Right Kidney: No hydronephrosis or masses seen; small amount of free fluid is imaged inferior to rig ht kidney. Prominent IVC is noted at diaphragm Gallbladder is seen with dependent gallbladder sludge and/or small stones and larger shadowing calcul i. Some adjacent pericholecystic fluid is noted. Liver shows no worrisome mass or dilatation. No sign ificant surrounding ascites. IMPRESSION: Redemonstration of known large gallstones but additional smaller stones and/or gallbladde r sludge with pericholecystic fluid. No suspicious wall thickening, pain, or positive Mari sign to correlate for acute cholecystitis. No suspicious biliary dilatation.
[2018-12-01] MEDS: ASPIRIN 325 MG TAB PO SCH (09:55)
[2018-12-01] MEDS: HEPARIN SODIUM,PORCINE 5,000 UNIT/ML 1 ML VIAL SQ SCH ×3 (09:55→23:28)
[2018-12-01] MEDS: CLOPIDOGREL 75 MG TAB PO SCH (09:55)
[2018-12-01] MEDS: CARVEDILOL 6.25 MG TAB PO SCH ×2 (09:56→16:52)
[2018-12-01] MEDS ORDERED: LIDOCAINE URO-JET JELLY 2% 5 ML KIT URETHRAL STA (12:16)
--- NOTE | 2018-12-01 12:44 | P.PN ---
Subjective Patient is a 78-year-old male with a known history of asthma/COPD, coronary artery disease with history of stent placement, BPH with history of TURP, history of DVT, GERD and hearing disorder and other multiple medical problems was brought to the hospital by his son due to confusion which is progressing from yesterday evening. Patient does not want to come to Hospital but his son did call EMS. Denied any falls. No fever no chills. No nausea vomiting or diarrhea. No cough or sputum production. Patient was slow to respond and he appears to be dehydrated as per EMS and was given fluid challenge which seemed to help. Patient otherwise denied any complaints of abdominal pain. Patient has been having back pain. INR 1.3, BUN 24 and creatinine 1.42 Troponin 0.048 and 0.051 Bilirubin 3.3 and alk phos [address] CT head showed no acute intracranial process. Chronic small ischemic changes noted. Chest x-ray showed minimal atelectasis right costophrenic angle. Suspected at the right lung base. Mild cardiomegaly. Patient is a poor historian otherwise. 12/01/2018 Patient was confused and could not provide information. He is awake and answers some questions but is disoriented to place person and time. Patient was noticed to be tachypneic, , And febrile, is tachycardic at 103. His blood pressure looks stable. showing unremarkable CBC, platelets are slightly on the low side at 122. INR is 103. His lactic acid came back to normal this morning. His creatinine is 1.5, which is unknown baseline. He has elevated bilirubin with right upper quadrant pain and tenderness, no rebound tenderness. Liver ultrasound showing large gallstone with some adjacent pericholecystic fluid. Staff could not pass Zavala catheter/straight cath because his bladder scan showed residual urine more than 3 50 mL. Neurology team were consulted. Gen. surgery were consulted for his right upper quadrant pain. He has history of low ejection fraction of less than 20%, his fluids is lowered from 100 mL per hour to 14 L/h of normal saline. Patient has elevated troponin on admission however he denies chest pain to me. Cardiology team has been consulted. Echocardiogram on 03/2017, showing ejection fraction less than 20%. I called the son at [phone] Karen Antuneza discussed the case with him. As per Patient Has Been Confused and Hallucinating, He Did Not Know Where He Is Added and His Been Short of Breath for the Last 2-3 Days. As per Her Son Is Been Having Urinary Problems on and off for Years Including Retention Problem. Review of systems: N/a Medication: Aspirin 325 mg, Lipitor 40 mg, Coreg 6.25, Plavix 75 mg, Flexeril 10 mg, heparin 5000 units, nitroglycerin 0.4 mg, Kcl40 mEq, normal saline at 40 mL per hour, Aldactone 25 mg. Objective - Vital Signs Vital signs: Vital Signs Temp 97.1 F L 12/01/18 07:46 Pulse 98 12/01/18 07:46 Resp 24 12/01/18 07:46 BP 122/90 12/01/18 07:46 Pulse Ox 98 12/01/18 07:46 Intake & Output 11/30/18 12/01/18 12/01/18 18:59 06:59 18:59 Intake Total 940 940 Output Total 200 Balance 940 940 -200 Weight 63.503 kg 65.6 kg Intake: Intake, IV Titration 700 440 Amount Sodium Chloride 0.9% 1, 200 440 000 ml @ 100 mls/hr IV . Q10H [facility] Rx#:[id number] Sodium Chloride 0.9% 500 500 ml 500 ml @ 999 mls/hr IV .Q31M ONE Rx#:[id number] Oral 240 Blood Product 500 Output: Urine 200 Other: Voiding Method Toilet Urinal Urinal # Voids 3 1 - Exam GENERAL: The patient is alert and oriented x0, thin built, does not look in the severe distress. HEENT: Pupils are round and equally reacting to light. EOMI. No scleral icterus. No conjunctival pallor. Normocephalic, atraumatic. No pharyngeal erythema. No thyromegaly. CARDIOVASCULAR: S1 and S2 present. No murmurs, rubs, or gallops. PULMONARY: Chest is clear to auscultation, no wheezing or crackles. Beemer. -ABDOMEN: Soft, RUQ tenderness, no rebound tenderness ,nondistended, normoactive bowel sounds. No palpable organomegaly. MUSCULOSKELETAL: No joint swelling or deformity. EXTREMITIES: No cyanosis, clubbing, or pedal edema. NEUROLOGICAL: Gross neurological examination did not reveal any focal deficits. SKIN: No rashes. - Labs CBC & Chem 7: 12/01/18 06:10 12/01/18 06:10 Labs: Abnormal Lab Results - Last 24 Hours (Table) 11/30/18 11/30/18 11/30/18 Range/Units 12:53 12:53 12:53 RBC (4.30-5.90) m/uL MCV 102.1 H (80.0-100.0) fL Plt Count 111 L (150-450) k/uL Lymphocytes # 0.9 L (1.0-4.8) k/uL PT (9.0-12.0) sec INR (<1.2) Chloride 112 H (98-107) mmol/L Carbon Dioxide (22-30) mmol/L BUN 24 H (9-20) mg/dL Creatinine 1.42 H (0.66-1.25) mg/dL Plasma Lactic Acid Nathaniel 2.1 H* (0.7-2.0) mmol/L Total Bilirubin 3.3 H (0.2-1.3) mg/dL Alkaline Phosphatase 449 H (38-126) U/L Troponin I (0.000-0.034) ng/mL Total Protein 6.2 L (6.3-8.2) g/dL Albumin (3.5-5.0) g/dL HDL Cholesterol (40-60) mg/dL Urine Protein (Negative) Amorphous Sediment (None) /hpf Hyaline Casts (0-2) /lpf Urine Mucus (None) /hpf Urine Opiates Screen (NotDetected) U Tricyclic Antidepress (NotDetected) 11/30/18 11/30/18 11/30/18 Range/Units 12:53 12:53 16:39 RBC (4.30-5.90) m/uL MCV (80.0-100.0) fL Plt Count (150-450) k/uL Lymphocytes # (1.0-4.8) k/uL PT 13.6 H (9.0-12.0) sec INR 1.3 H (<1.2) Chloride (98-107) mmol/L Carbon Dioxide (22-30) mmol/L BUN (9-20) mg/dL Creatinine (0.66-1.25) mg/dL Plasma Lactic Acid Nathaniel 2.2 H* (0.7-2.0) mmol/L Total Bilirubin (0.2-1.3) mg/dL Alkaline Phosphatase (38-126) U/L Troponin I 0.048 H* (0.000-0.034) ng/mL Total Protein (6.3-8.2) g/dL Albumin (3.5-5.0) g/dL HDL Cholesterol (40-60) mg/dL Urine Protein (Negative) Amorphous Sediment (None) /hpf Hyaline Casts (0-2) /lpf Urine Mucus (None) /hpf Urine Opiates Screen (NotDetected) U Tricyclic Antidepress (NotDetected) 11/30/18 11/30/18 11/30/18 Range/Units 18:52 19:30 22:24 RBC (4.30-5.90) m/uL MCV (80.0-100.0) fL Plt Count (150-450) k/uL Lymphocytes # (1.0-4.8) k/uL PT (9.0-12.0) sec INR (<1.2) Chloride (98-107) mmol/L Carbon Dioxide (22-30) mmol/L BUN (9-20) mg/dL Creatinine (0.66-1.25) mg/dL Plasma Lactic Acid Nathaniel 2.2 H* (0.7-2.0) mmol/L Total Bilirubin (0.2-1.3) mg/dL Alkaline Phosphatase (38-126) U/L Troponin I 0.051 H* (0.000-0.034) ng/mL Total Protein (6.3-8.2) g/dL Albumin (3.5-5.0) g/dL HDL Cholesterol (40-60) mg/dL Urine Protein 1+ H (Negative) Amorphous Sediment Occasional H (None) /hpf Hyaline Casts 9 H (0-2) /lpf Urine Mucus Few H (None) /hpf Urine Opiates Screen Detected H (NotDetected) U Tricyclic Antidepress Detected H (NotDetected) 12/01/18 12/01/18 12/01/18 Range/Units 00:33 06:10 06:10 RBC 4.03 L (4.30-5.90) m/uL MCV 103.2 H (80.0-100.0) fL Plt Count 122 L (150-450) k/uL Lymphocytes # 0.8 L (1.0-4.8) k/uL PT (9.0-12.0) sec INR (<1.2) Chloride 112 H (98-107) mmol/L Carbon Dioxide 21 L (22-30) mmol/L BUN 25 H (9-20) mg/dL Creatinine 1.52 H (0.66-1.25) mg/dL Plasma Lactic Acid Nathaniel (0.7-2.0) mmol/L Total Bilirubin 3.3 H (0.2-1.3) mg/dL Alkaline Phosphatase 422 H (38-126) U/L Troponin I 0.041 H* (0.000-0.034) ng/mL Total Protein 5.6 L (6.3-8.2) g/dL Albumin 3.3 L (3.5-5.0) g/dL HDL Cholesterol 22 L (40-60) mg/dL Urine Protein (Negative) Amorphous Sediment (None) /hpf Hyaline Casts (0-2) /lpf Urine Mucus (None) /hpf Urine Opiates Screen (NotDetected) U Tricyclic Antidepress (NotDetected) Assessment and Plan Assessment: Altered mental status, possible metabolic encephalopathy secondary to many problems including urinary bladder and gallbladder disease. Generalized weakness and lethargic and confusion likely due to dehydration and volume depletion. Elevated troponin level. Due to demand ischemia/type II [place] Gallbladder disease, possible acute cholecystitis. Urinary retention. Hyperbilirubinemia and elevated alk phos level.. Lactic acidosis secondary to decreased tissue perfusion. Coronary artery disease history of stent placement Acute kidney injury History of TURP History of DVT Zach GERD Hearing disorder Hypertension Hyperlipidemia History of [place] Asthma/COPD Nicotine addiction/currently everyday smoker DVT prophylaxis with heparin subcu UDS positive for opiates and tricyclic antidepressants Plan: This is a pleasant 78 years old male who presents with altered mental status, he has other medical problems like elevated troponin, gallbladder disease and urinary retention. Cardiology team and pulmonary team were consulted. Neurosurgery will be asked to evaluate the patient for possible gallbladder disease. Patient has urinary retentions and staff could not pass catheter so ask for help of urologist. In the meantime continue with gentle hydration and supportive care. Monitor fluid status carefully and in view of his low ejection fraction and chronic kidney disease.Labs and medication were reviewed.. Continue same treatment. Continue with symptomatic treatment. Resume home medication. Monitor lytes and vitals. DVT and GI prophylaxis. Further recommendations of the clinical course of the patient DVT prophylaxis: Subcutaneous heparin GI Prophylaxis: Pepcid PT/OT: Pending Prognosis is guarded
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
[2018-12-01] MEDS: FAMOTIDINE 20 MG/2 ML VIAL IV SCH (13:48)
[2018-12-01] MEDS: SPIRONOLACTONE 25 MG TAB PO SCH (13:48)
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
[2018-12-01] MEDS: POTASSIUM CHLORIDE ER 20 MEQ TAB.ER PO SCH (14:24)
--- NOTE | 2018-12-01 15:00 | XR ---
EXAMINATION TYPE: XR chest 2V DATE OF EXAM: 12/01/2018 COMPARISON: 11/30/2018 INDICATION: Tachypnea TECHNIQUE: Frontal and lateral views of the chest are obtained. FINDINGS: The heart size is normal. The pulmonary vasculature is normal. The lungs are clear. Previous suspected nipple shadow is not identified on the current exam. Some at electatic changes may be at the right base. Hyperinflation flattening the diaphragms could suggest [place] PD. Spondylosis is at the thoracic spine. IMPRESSION: 1. Minimal plate atelectasis right base
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
[2018-12-01] MEDS ORDERED: IOPAMIDOL-300 CONTRAST 30 ML VIAL (ORAL USE) PO PRN (17:33)
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
[2018-12-01] MEDS ORDERED: LEVOFLOXACIN 500MG-D5W PMX 500 MG in DEXTROSE/WATER 1 100ML.BAG IVPB ONE (18:00)
[2018-12-01 18:19] LABS: Basophils % (A) 0 %; Eosinophils # (A) 0.1 k/uL (0-0.7); Eosinophils % (A) 2 %; HCT 42.3 % (39.0-53.0); HGB 13.2 gm/dL (13.0-17.5); Lymphocytes # (A) 0.8 k/uL (1.0-4.8); Lymphocytes % (A) 13 %; MCH 32.8 pg (25.0-35.0); MCHC 31.3 g/dL (31.0-37.0); MCV 104.7 fL (80.0-100.0); Macrocytosis Moderate; Mean Platelet Volume 9.2; Monocytes # (A) 0.4 k/uL (0-1.0); Monocytes % (A) 7 %; Neutrophils # (A) 4.6 k/uL (1.3-7.7); Neutrophils % (A) 76 %; Platelet Count 121 k/uL (150-450); RBC 4.04 m/uL (4.30-5.90); RDW 14.5 % (11.5-15.5); WBC 6.1 k/uL (3.8-10.6)
[2018-12-01] MEDS: ATORVASTATIN 40 MG TAB PO SCH (19:42)
[2018-12-01] MEDS ORDERED: MELATONIN 3 MG TABLET PO STA (19:54)
[2018-12-01] MEDS ORDERED: FAMOTIDINE 20 MG/2 ML VIAL IV SCH (21:00)
[2018-12-01] MEDS ORDERED: ALPRAZolam 0.5 MG TAB PO STA (22:14)
[2018-12-02 06:54] LABS: Anisocytosis Slight; Basophils # (A) 0.1 k/uL (0-0.2); Basophils % (A) 1 %; Eosinophils # (A) 0.1 k/uL (0-0.7); Eosinophils % (A) 2 %; HCT 41.4 % (39.0-53.0); HGB 13.5 gm/dL (13.0-17.5); Lymphocytes # (A) 0.9 k/uL (1.0-4.8); Lymphocytes % (A) 13 %; MCH 33.2 pg (25.0-35.0); MCHC 32.6 g/dL (31.0-37.0); MCV 101.9 fL (80.0-100.0); Macrocytosis Slight; Mean Platelet Volume 9.8; Monocytes # (A) 0.6 k/uL (0-1.0); Monocytes % (A) 9 %; Neutrophils # (A) 5.3 k/uL (1.3-7.7); Neutrophils % (A) 75 %; Platelet Count 121 k/uL (150-450); RBC 4.07 m/uL (4.30-5.90); WBC 7.2 k/uL (3.8-10.6)
[2018-12-02 07:14] LABS: Albumin 2.9 g/dL (3.5-5.0); Calcium 8.5 mg/dL (8.4-10.2); Potassium 4.3 mmol/L (3.5-5.1); Total Bilirubin 3.6 mg/dL (0.2-1.3); Total Protein 5.2 g/dL (6.3-8.2)
--- NOTE | 2018-12-02 09:20 | P.PN ---
Progress Note - Text Progress Note Date: 12/02/18 Mr. Jj remains confused. He does not appear to be in any discomfort or distress. He experienced urethral bleeding following urethral dilation, as expected. This has essentially resolved. Throughout the night, he has been able to void up to 150 mL at a time. A postvoid residual overnight was 2 20 mL. On examination, the abdomen is soft, non-tender, and non-distended. At some point, he will require elective cystoscopy, transurethral incision of a vesical neck contracture. However, I do not feel that this needs to be performed on an immediate basis. We will continue to follow him with you.
--- NOTE | 2018-12-02 09:46 | CONS ---
CONSULTATION DATE OF SERVICE: December 022018. REQUESTING PHYSICIAN: Dr. Parmar. REASON FOR CONSULTATION: Elevated LFTs. HISTORY OF PRESENT ILLNESS: The patient is a white male who was brought into the emergency room by his family because of confusion for the last 2 days duration. There is no family at the bedside currently. The patient is an extremely poor historian and somewhat confused and hence most of the history was obtained from the patient's chart. Apparently, he was brought into the emergency room by his son for new onset of confusion for the last two days prior to hospitalization. He was not complaining of any abdominal pain. No nausea, vomiting. No fever, chills, or night sweats. We are consulted because of elevated LFTs. Bilirubin was 3.3 and alkaline phosphatase of 451. On review of his old records, the patient has been noted to have abnormal LFTs for almost 2 years. In 2017, during his prior hospitalizations, bilirubin ranged between 2.5-4.4 and alkaline phosphatase was within normal limits. However, the 1st time it was found to be elevated was in October of 2018. Serum ALT and AST have all been within normal limits. He also was noted to have chronic thrombocytopenia for the last 4 years duration. No history of chronic liver disease as per past medical history. In the emergency room, he did have a CT of the head done that showed no acute process. PAST MEDICAL HISTORY: Significant for coronary artery disease, congestive heart failure, history of DVT, GERD, hyperlipidemia, hypertension, OR in the past. PAST SURGICAL HISTORY: Prostate surgery, cardiac cath with stent placement, tonsillectomy, EGD, colonoscopy, TURP. MEDICATIONS: At home include Plavix, Coreg, Lasix, K-Padmini, Lipitor, Flexeril, spironolactone. ALLERGIES: TO SULFA. SOCIAL HISTORY: Chronic smoker. No alcohol use. FAMILY HISTORY: Patient adopted. REVIEW OF SYSTEMS: CARDIOPULMONARY: Denies any chest pain, shortness of breath. GENITOURINARY: No dysuria or hematuria. MUSCULOSKELETAL: He reports no complaints. NEUROLOGY: Very confused. ENT/VISION unremarkable. CONSTITUTIONAL: No recent weight loss. No fever, chills, night sweats. HEMATOLOGY unremarkable. PHYSICAL EXAMINATION: He appears comfortable. No apparent distress. Vital signs are stable. Blood pressure is 110/70, pulse rate 95, temperature 97.3. HEENT examination unremarkable. Conjunctivae pink. Sclerae anicteric. Oral cavity no lesions. NECK: No JVD or lymph node enlargement. CHEST: The chest was clear to auscultation. HEART: Regular rate and rhythm. ABDOMEN: Soft, was nontender, nondistended. Bowel sounds are positive. No organomegaly. EXTREMITIES: No pedal edema. SKIN: No rashes. NEUROLOGIC: Alert to name but not oriented to name or place, but no focal deficits. LABS: Done at the time of admission to the hospital: WBC 6, hemoglobin 13.2, platelets are 122. BUN is 25, creatinine 1.52, T-bilirubin is 3.3, alkaline phosphatase is 422, ALT and AST are 55 and 55 respectively. Today T-bilirubin is 3.6, alkaline phosphatase is 425, ALT and AST 59 and 68 respectively. Albumin is low at 2.9, platelets are 121, hemoglobin 13.5 and WBC 7.2. He did have an abdominal ultrasound done yesterday that showed evidence of gallstones but no evidence of biliary ductal dilation. Liver appeared normal. IMPRESSION: 1. Altered mental status/confusion for the last two days duration. Rule out hepatic encephalopathy. 2. Elevated LFTs with bilirubin and alkaline phosphatase in the range of 3.5 and 425 respectively. On review of his records, he was noted to have elevated bilirubin for almost 2 years now. It is very likely we are dealing with history of chronic liver disease and possibility of underlying cirrhosis of the liver cannot be excluded. Recent ultrasound of the liver showed normal-appearing liver and no biliary ductal dilation, presence of gallstones. 3. Asymptomatic gallstones. 4. Persistent thrombocytopenia of 3 years duration, possibly explained on the basis of underlying chronic liver disease. RECOMMENDATIONS: 1. Workup for chronic liver disease. 2. No indication to proceed with any endoscopy intervention/ERCP at the present time. 3. Obtain ammonia level. 4. We will start him on oral lactulose 30 mL 3 times daily. 5. We will follow with you closely during his hospital stay. Thank you for this consultation. MMODL / IJN: [id number] /
[2018-12-02] MEDS: POTASSIUM CHLORIDE ER 20 MEQ TAB.ER PO SCH (10:27)
--- NOTE | 2018-12-02 10:44 | P.PN ---
Subjective Patient is a 78-year-old male with a known history of asthma/COPD, coronary artery disease with history of stent placement, BPH with history of TURP, history of DVT, GERD and hearing disorder and other multiple medical problems was brought to the hospital by his son due to confusion which is progressing from yesterday evening. Patient does not want to come to Hospital but his son did call EMS. Denied any falls. No fever no chills. No nausea vomiting or diarrhea. No cough or sputum production. Patient was slow to respond and he appears to be dehydrated as per EMS and was given fluid challenge which seemed to help. Patient otherwise denied any complaints of abdominal pain. Patient has been having back pain. INR 1.3, BUN 24 and creatinine 1.42 Troponin 0.048 and 0.051 Bilirubin 3.3 and alk phos [address] CT head showed no acute intracranial process. Chronic small ischemic changes noted. Chest x-ray showed minimal atelectasis right costophrenic angle. Suspected at the right lung base. Mild cardiomegaly. Patient is a poor historian otherwise. 12/01/2018 Patient was confused and could not provide information. He is awake and answers some questions but is disoriented to place person and time. Patient was noticed to be tachypneic, , And febrile, is tachycardic at 103. His blood pressure looks stable. showing unremarkable CBC, platelets are slightly on the low side at 122. INR is 103. His lactic acid came back to normal this morning. His creatinine is 1.5, which is unknown baseline. He has elevated bilirubin with right upper quadrant pain and tenderness, no rebound tenderness. Liver ultrasound showing large gallstone with some adjacent pericholecystic fluid. Staff could not pass Zavala catheter/straight cath because his bladder scan showed residual urine more than 3 50 mL. Neurology team were consulted. Gen. surgery were consulted for his right upper quadrant pain. He has history of low ejection fraction of less than 20%, his fluids is lowered from 100 mL per hour to 14 L/h of normal saline. Patient has elevated troponin on admission however he denies chest pain to me. Cardiology team has been consulted. Echocardiogram on 03/2017, showing ejection fraction less than 20%. I called the son at [phone] Karen Antuneza discussed the case with him. As per Patient Has Been Confused and Hallucinating, He Did Not Know Where He Is Added and His Been Short of Breath for the Last 2-3 Days. As per Her Son Is Been Having Urinary Problems on and off for Years Including Retention Problem. 12/02/2018 Patient remains confused but he is more calm today. He denies pain in the RUQ abdomen today, and there is no tenderness on examination either. Patient is been nothing by mouth for possible procedure. No nausea vomiting. he is hemodynamically stable. Labs reviewed showing no leukocytosis. Hemoglobin is stable. Platelets stable at 121. His creatinine is slightly elevated at 1.69, however patient has history of chronic kidney disease. Surgical and gastroenterology team R following the case for his abdominal pain, encephalopathy and elevated bilirubin. However no ERCP is indicated as per GI.. His ammonia level less than 9. Lactulose was started by GI team. Urology team were following the patient for urinary retention Karine however his bladder scan today showing only 250 mL of urine. His hematuria is improving and his hemoglobin is stable. Patient is not tachypneic anymore. Repeat chest x-ray showing only minimal atelectasis. Review of systems: N/a Medication: Aspirin 325 mg, Lipitor 40 mg, Coreg 6.25, Plavix 75 mg, Flexeril 10 mg, heparin 5000 units, nitroglycerin 0.4 mg, Kcl40 mEq, normal saline at 40 mL per hour, Aldactone 25 mg. levofloxacin to 50 mg, lactulose 30 g. Objective - Vital Signs Vital signs: Vital Signs Temp 97.5 F L 12/02/18 08:00 Pulse 95 12/02/18 08:00 Resp 16 12/02/18 08:00 BP 120/93 12/02/18 08:00 Pulse Ox 99 12/02/18 08:00 Intake & Output 12/01/18 12/02/18 12/02/18 18:59 06:59 18:59 Intake Total 902 400 Output Total 650 400 Balance 252 0 Weight 65.2 kg Intake: IV 480 Sodium Chloride 0.9% 1, 480 000 ml @ 40 mls/hr IV . Q24H [facility] Rx#:[id number] Oral 422 400 Output: Urine 650 400 Other: Voiding Method Urinal Urinal Urinal # Voids 3 - Exam GENERAL: The patient is alert and oriented x0, thin built, does not look in the severe distress. HEENT: Pupils are round and equally reacting to light. EOMI. No scleral icterus. No conjunctival pallor. Normocephalic, atraumatic. No pharyngeal erythema. No thyromegaly. CARDIOVASCULAR: S1 and S2 present. No murmurs, rubs, or gallops. PULMONARY: Chest is clear to auscultation, no wheezing or crackles. [place]. -ABDOMEN: Soft, RUQ tenderness, no rebound tenderness ,nondistended, normoactive bowel sounds. No palpable organomegaly. MUSCULOSKELETAL: No joint swelling or deformity. EXTREMITIES: No cyanosis, clubbing, or pedal edema. NEUROLOGICAL: Gross neurological examination did not reveal any focal deficits. SKIN: No rashes. - Labs CBC & Chem 7: 12/02/18 05:48 12/02/18 05:48 Labs: Abnormal Lab Results - Last 24 Hours (Table) 12/01/18 12/02/18 12/02/18 Range/Units 17:53 05:48 05:48 RBC 4.04 L 4.07 L (4.30-5.90) m/uL MCV 104.7 H 101.9 H (80.0-100.0) fL RDW 16.0 H (11.5-15.5) % Plt Count 121 L 121 L (150-450) k/uL Lymphocytes # 0.8 L 0.9 L (1.0-4.8) k/uL Chloride 111 H (98-107) mmol/L Carbon Dioxide 21 L (22-30) mmol/L BUN 32 H (9-20) mg/dL Creatinine 1.69 H (0.66-1.25) mg/dL Total Bilirubin 3.6 H (0.2-1.3) mg/dL Alkaline Phosphatase 425 H (38-126) U/L Total Protein 5.2 L (6.3-8.2) g/dL Albumin 2.9 L (3.5-5.0) g/dL Microbiology - Last 24 Hours (Table) 11/30/18 12:53 Blood Culture - Preliminary Blood No Growth after 24 hours Assessment and Plan Assessment: Altered mental status, possible metabolic encephalopathy secondary to many problems including urinary bladder and gallbladder disease. Generalized weakness and lethargic and confusion likely due to dehydration and volume depletion. Elevated troponin level. Due to demand ischemia/type II [place] Gallbladder disease, possible acute cholecystitis. Urinary retention. Hyperbilirubinemia and elevated alk phos level.. Lactic acidosis secondary to decreased tissue perfusion. Coronary artery disease history of stent placement Acute kidney injury History of TURP History of DVT Zach GERD Hearing disorder Hypertension Hyperlipidemia History of [place] Asthma/COPD Nicotine addiction/currently everyday smoker DVT prophylaxis with heparin subcu UDS positive for opiates and tricyclic antidepressants Plan: This is a pleasant 78 years old male who presents with altered mental status, he has other medical problems like elevated troponin, gallbladder disease and urinary retention. Gen. will be asked to evaluate the patient for possible gallbladder disease. GI team were consulted . urologist is seeing the patient for urinary retention and hematuria. In the meantime continue with gentle hydration and supportive care. Monitor fluid status carefully and in view of his low ejection fraction and chronic kidney disease.Labs and medication were reviewed.. Continue same treatment. Continue with symptomatic treatment. Resume home medication. Monitor lytes and vitals. DVT and GI prophylaxis. Further recommendations of the clinical course of the patient DVT prophylaxis: Subcutaneous heparin GI Prophylaxis: Pepcid Prognosis is guarded
[2018-12-02] MEDS: CLOPIDOGREL 75 MG TAB PO SCH (10:55)
[2018-12-02] MEDS: HEPARIN SODIUM,PORCINE 5,000 UNIT/ML 1 ML VIAL SQ SCH ×3 (10:55→23:05)
[2018-12-02] MEDS: FAMOTIDINE 20 MG/2 ML VIAL IV SCH (10:55)
[2018-12-02] MEDS: SPIRONOLACTONE 25 MG TAB PO SCH (10:55)
[2018-12-02] MEDS: ASPIRIN 325 MG TAB PO SCH (10:55)
[2018-12-02] MEDS: LACTULOSE 20 GM/30 ML CUP PO SCH ×3 (10:56→20:58)
[2018-12-02] MEDS: CARVEDILOL 6.25 MG TAB PO SCH ×2 (10:56→18:14)
--- NOTE | 2018-12-02 12:27 | P.PN ---
Subjective Progress Note Date: 12/02/18 Principal diagnosis: Abdominal pain Patient remains confused. Labs today are essentially the same. Bilirubin 3.6, alkaline phosphatase 425. GI consult appreciated. Patient with history of previous elevated liver enzymes and probable chronic liver disease. This would explain the pericholecystic fluid. Denies pain for me currently. Objective - Vital Signs Vital signs: Vital Signs Temp 98 F 12/02/18 10:52 Pulse 92 12/02/18 10:52 Resp 24 12/02/18 10:52 BP 117/87 12/02/18 10:52 Pulse Ox 94 L 12/02/18 10:52 Intake & Output 12/01/18 12/02/18 12/02/18 18:59 06:59 18:59 Intake Total 902 400 Output Total 650 400 50 Balance 252 0 -50 Weight 65.2 kg Intake: IV 480 Sodium Chloride 0.9% 1, 480 000 ml @ 40 mls/hr IV . Q24H [facility] Rx#:[id number] Oral 422 400 Output: Urine 650 400 50 Other: Voiding Method Urinal Urinal Urinal # Voids 3 - Exam Abdomen: Soft, nontender, nondistended - Labs CBC & Chem 7: 12/02/18 05:48 12/02/18 05:48 Labs: Abnormal Lab Results - Last 24 Hours (Table) 12/01/18 12/02/18 12/02/18 Range/Units 17:53 05:48 05:48 RBC 4.04 L 4.07 L (4.30-5.90) m/uL MCV 104.7 H 101.9 H (80.0-100.0) fL RDW 16.0 H (11.5-15.5) % Plt Count 121 L 121 L (150-450) k/uL Lymphocytes # 0.8 L 0.9 L (1.0-4.8) k/uL Chloride 111 H (98-107) mmol/L Carbon Dioxide 21 L (22-30) mmol/L BUN 32 H (9-20) mg/dL Creatinine 1.69 H (0.66-1.25) mg/dL Total Bilirubin 3.6 H (0.2-1.3) mg/dL Alkaline Phosphatase 425 H (38-126) U/L Total Protein 5.2 L (6.3-8.2) g/dL Albumin 2.9 L (3.5-5.0) g/dL Microbiology - Last 24 Hours (Table) 11/30/18 12:53 Blood Culture - Preliminary Blood No Growth after 24 hours Assessment and Plan (1) Gallbladder sludge Narrative/Plan: Will hold off on CAT scan for now. Follow labs. Lactulose per GI. Current Visit: Yes Status: Acute Code(s): K82.8 - OTHER SPECIFIED DISEASES OF GALLBLADDER SNOMED Code(s): 46262808
--- NOTE | 2018-12-02 12:30 | P.PN ---
Subjective Progress Note Date: 12/02/18 Principal diagnosis: Shortness of breath and altered mental status this is a 78-year-old white male with known history of COPD, coronary artery disease, previous stent placement, benign prostatic hypertrophy and previous TURP, history of DVT, hearing disorder, patient is extremely hard of hearing, brought in by the son with complaints of confusion. The patient himself is basically a poor historian, he is very hard of hearing, he denies any complaints. Denies any chest pain, no cough no wheezing no fever no chills no hemoptysis, patient was evaluated in the ER, and he was noted to have abnormal labs including slightly elevated creatinine, elevated troponin, elevated bili jones, elevated alkaline phosphatase, CT of the head showed no acute intracranial process. There is evidence of chronic ischemic changes related to small vessel disease. Chest x-ray showed a nonspecific right lower lobe nodule could be a nipple shadow. Upon my evaluation, the patient was noted to be comfortable, in no distress, asymptomatic, and his O2 saturation was 98% on room air.I did recommend a repeat chest x-ray with nipple markers to evaluate the right lower lobe nodule. On 12/02/2018 patient seen in follow-up on selective care unit, he is more awake today, he is oriented to place, month and the year, but not the president, responding appropriately. he does have a food safety coordinator at the bedside. He denies any shortness of breath, no cough or congestion, follow-up chest x-ray wa s obtained yesterday on 12/01/2018 showing previously suspected nipple shadow in the right lower lobe not present on the current exam, possibly some atelectatic changes at the right base a background of COPD. Otherwise vital signs are stable, patient denies any distress. Lung sounds are clear, diminished at the bases, today's labs have been reviewed, showing white blood cell count of 7.2, hemoglobin 13.5, sodium of 140, potassium is 4.3, chloride is 111, CO2 is 21, BUN is 32 creatinine is 1.69, ammonia level was less than 9, blood culture showed no growth Objective - Vital Signs Vital signs: Vital Signs Temp 98 F 12/02/18 10:52 Pulse 92 12/02/18 10:52 Resp 24 12/02/18 10:52 BP 117/87 12/02/18 10:52 Pulse Ox 94 L 12/02/18 10:52 Intake & Output 12/01/18 12/02/18 12/02/18 18:59 06:59 18:59 Intake Total 902 400 Output Total 650 400 50 Balance 252 0 -50 Weight 65.2 kg Intake: IV 480 Sodium Chloride 0.9% 1, 480 000 ml @ 40 mls/hr IV . Q24H [facility] Rx#:[id number] Oral 422 400 Output: Urine 650 400 50 Other: Voiding Method Urinal Urinal Urinal # Voids 3 - Exam GENERAL EXAM: Alert, present, cachectic 78-year-old white male on room air, rehydrated of hearing, comfortable in no apparent distress. executive director of nursing at the bedside HEAD: Normocephalic/atraumatic. EYES: Normal reaction of pupils, equal size. Conjunctiva pink, sclera white. NOSE: Clear with pink turbinates. THROAT: No erythema or exudates. NECK: No masses, no JVD, no thyroid enlargement, no adenopathy. CHEST: No chest wall deformity. Symmetrical expansion. LUNGS: Equal air entry with no crackles, wheeze, rhonchi or dullness. CVS: Regular rate and rhythm, normal S1 and S2, no gallops, no murmurs, no rubs ABDOMEN: Soft, nontender. No hepatosplenomegaly, normal bowel sounds, no guarding or rigidity. EXTREMITIES: No clubbing, no edema, no cyanosis, 2+ pulses and upper and lower extremities. MUSCULOSKELETAL: Muscle strength and tone normal. SPINE: No scoliosis or deformity SKIN: No rashes CENTRAL NERVOUS SYSTEM: Alert and oriented -3. No focal deficits, tone is normal in all 4 extremities. PSYCHIATRIC: Alert and oriented -3. Appropriate affect. Intact judgment and insight. - Labs CBC & Chem 7: 12/02/18 05:48 12/02/18 05:48 Labs: Abnormal Lab Results - Last 24 Hours (Table) 12/01/18 12/02/18 12/02/18 Range/Units 17:53 05:48 05:48 RBC 4.04 L 4.07 L (4.30-5.90) m/uL MCV 104.7 H 101.9 H (80.0-100.0) fL RDW 16.0 H (11.5-15.5) % Plt Count 121 L 121 L (150-450) k/uL Lymphocytes # 0.8 L 0.9 L (1.0-4.8) k/uL Chloride 111 H (98-107) mmol/L Carbon Dioxide 21 L (22-30) mmol/L BUN 32 H (9-20) mg/dL Creatinine 1.69 H (0.66-1.25) mg/dL Total Bilirubin 3.6 H (0.2-1.3) mg/dL Alkaline Phosphatase 425 H (38-126) U/L Total Protein 5.2 L (6.3-8.2) g/dL Albumin 2.9 L (3.5-5.0) g/dL Microbiology - Last 24 Hours (Table) 11/30/18 12:53 Blood Culture - Preliminary Blood No Growth after 24 hours Assessment and Plan Plan: Assessment: 1acute mental status change, most likely secondary to metabolic encephalopathy. 2 nonspecific right lower lobe pulmonary nodule, recommended repeat chest x-ray with nipple markers, and if there is truly a nodule, consider CT of the chest. 3 underlying COPD, presently inactive. 4 coronary artery disease, presently asymptomatic 5 history of cardiomyopathy and LV dysfunction/ischemic cardiomyopathy and ejection fraction of less than 20% based on previous echo. 6 history of deep vein thromboses and 7 GERD 8 hard of hearing. 9 abnormal ultrasound of the liver showing large gallstones and gallbladder sludge with pericholecystic fluid, however no clinical evidence of cholecystitis. Plan: Follow-up chest x-ray did not show right lower lung nodule seen on the previous chest x-ray. Patient is stable from pulmonary perspective, lung sounds are stable, no acute events overnight, no couplets shortness of breath, cough or congestion. No specific complaints from pulmonary perspective, we'll sign off and follow on as-needed basis I performed a history & physical examination of the patient and discussed their management with my nurse practitioner, Merle Thayer. I reviewed the nurse practitioner's note and agree with the documented findings and plan of care. Lung sounds are positive for clear breath sounds,. The findings and the impression was discussed with the patient. I attest to the documentation by the nurse practitioner. Time with Patient: Less than 30
[2018-12-02] MEDS: SODIUM CHLORIDE 0.9% 1,000 ML IV SCH (17:05)
[2018-12-02] MEDS ORDERED: LEVOFLOXACIN 250MG-D5W PMX 250 MG in DEXTROSE/WATER 1 50ML.BAG IVPB SCH (18:00)
[2018-12-02] MEDS: ATORVASTATIN 40 MG TAB PO SCH (20:56)
[2018-12-03] MEDS: CARVEDILOL 6.25 MG TAB PO SCH ×2 (06:10→18:17)
[2018-12-03 07:28] LABS: Anisocytosis Slight; Basophils % (A) 0 %; Eosinophils % (A) 1 %; HCT 47.5 % (39.0-53.0); HGB 15.2 gm/dL (13.0-17.5); Hypochromasia Slight; Lymphocytes # (A) 0.5 k/uL (1.0-4.8); Lymphocytes % (A) 6 %; MCH 33.1 pg (25.0-35.0); MCV 103.6 fL (80.0-100.0); Macrocytosis Moderate; Mean Platelet Volume 9.8; Monocytes # (A) 0.3 k/uL (0-1.0); Monocytes % (A) 4 %; Neutrophils # (A) 7.1 k/uL (1.3-7.7); Neutrophils % (A) 88 %; Platelet Count 126 k/uL (150-450); RBC 4.59 m/uL (4.30-5.90); RDW 16.3 % (11.5-15.5); WBC 8.1 k/uL (3.8-10.6)
[2018-12-03 07:42] LABS: Albumin 3.3 g/dL (3.5-5.0); Calcium 8.9 mg/dL (8.4-10.2); Potassium 4.2 mmol/L (3.5-5.1); Total Bilirubin 3.2 mg/dL (0.2-1.3); Total Protein 5.7 g/dL (6.3-8.2)
--- NOTE | 2018-12-03 08:45 | P.PN ---
Subjective Progress Note Date: 12/03/18 I reviewed the notes from as well as the other consultations. The patient is seen at the bedside. He is much thinner than the last time I saw him. He does not recognize me. His urine was clear. Etiology of his disorientation is unclear to me. From a urologic standpoint he will need a bladder neck incision at some point in time but this does not appear to be the cause of his present metabolic issues. I will follow Objective - Vital Signs Vital signs: Vital Signs Temp 97.4 F L 12/03/18 04:00 Pulse 88 12/03/18 04:00 Resp 18 12/03/18 04:00 BP 109/79 12/03/18 04:00 Pulse Ox 100 12/03/18 04:00 Intake & Output 12/02/18 12/03/18 12/03/18 18:59 06:59 18:59 Intake Total 702 Output Total 50 150 Balance 652 -150 Weight 65.3 kg Intake: IV 480 Sodium Chloride 0.9% 1, 480 000 ml @ 40 mls/hr IV . Q24H [facility] Rx#:[id number] Oral 222 Output: Urine 50 150 Other: Voiding Method Toilet Toilet # Voids 1 1 # Bowel Movements 1 - Labs CBC & Chem 7: 12/03/18 07:01 12/03/18 07:01 Labs: Abnormal Lab Results - Last 24 Hours (Table) 12/03/18 12/03/18 Range/Units 07:01 07:01 MCV 103.6 H (80.0-100.0) fL RDW 16.3 H (11.5-15.5) % Plt Count 126 L (150-450) k/uL Lymphocytes # 0.5 L (1.0-4.8) k/uL Chloride 111 H (98-107) mmol/L Carbon Dioxide 19 L (22-30) mmol/L BUN 32 H (9-20) mg/dL Creatinine 1.93 H (0.66-1.25) mg/dL Total Bilirubin 3.2 H (0.2-1.3) mg/dL AST 70 H (17-59) U/L ALT 91 H (21-72) U/L Alkaline Phosphatase 443 H (38-126) U/L Total Protein 5.7 L (6.3-8.2) g/dL Albumin 3.3 L (3.5-5.0) g/dL Microbiology - Last 24 Hours (Table) 11/30/18 12:53 Blood Culture - Preliminary Blood No Growth after 48 hours
--- NOTE | 2018-12-03 11:03 | P.PN ---
<Eugenia Anderson - Last Filed: 12/03/18 10:57> Subjective Progress Note Date: 12/03/18 CHIEF COMPLAINT: possible cholecystitis HISTORY OF PRESENT ILLNESS: Patient examined at the bedside. He is confused and attempting to get OOB. airplane tester at bedside. Patient unable to communicate effectively during examination and is only moaning occasionally. Does not appear to be in pain with palpation of abdomen. Brief noted to have old blood on it. Per safety security officer, nursing was attempting to straight cath patient this morning. white count 8.1. Hemoglobin 15.2. Bilirubin 3.2. AST 70. ALT 91. Alkaline phosphatase 443. Ammmonia levels WNL yesterday. PHYSICAL EXAM: VITAL SIGNS: Reviewed. GENERAL: Well-developed in no acute distress. HEENT: No sclera icterus. Extraocular movements grossly intact. Moist buccal mucosa. Head is atraumatic, normocephalic. ABDOMEN: Soft. Nondistended. Nontender. NEUROLOGIC: Lethargic. Confused. ASSESSMENT: 1. Gallbladder sludge, possible chronic liver disease PLAN: 1. Continue current diet as tolerated 2. GI following for workup of chronic liver disease 3. No surgical intervention recommended at this time Nurse practitioner note has been reviewed by physician. Signing provider agrees with the documented findings, assessment, and plan of care. Objective - Vital Signs Vital signs: Vital Signs Temp 99.1 F 12/03/18 08:00 Pulse 110 H 12/03/18 08:00 Resp 36 H 12/03/18 08:00 BP 104/69 12/03/18 08:00 Pulse Ox 93 L 12/03/18 08:00 Intake & Output 12/02/18 12/03/18 12/03/18 18:59 06:59 18:59 Intake Total 702 Output Total 50 150 Balance 652 -150 Weight 65.3 kg Intake: IV 480 Sodium Chloride 0.9% 1, 480 000 ml @ 40 mls/hr IV . Q24H [facility] Rx#:[id number] Oral 222 Output: Urine 50 150 Other: Voiding Method Toilet Toilet Toilet # Voids 1 1 # Bowel Movements 1 - Labs CBC & Chem 7: 12/03/18 07:01 12/03/18 07:01 Labs: Abnormal Lab Results - Last 24 Hours (Table) 12/03/18 12/03/18 Range/Units 07:01 07:01 MCV 103.6 H (80.0-100.0) fL RDW 16.3 H (11.5-15.5) % Plt Count 126 L (150-450) k/uL Lymphocytes # 0.5 L (1.0-4.8) k/uL Chloride 111 H (98-107) mmol/L Carbon Dioxide 19 L (22-30) mmol/L BUN 32 H (9-20) mg/dL Creatinine 1.93 H (0.66-1.25) mg/dL Total Bilirubin 3.2 H (0.2-1.3) mg/dL AST 70 H (17-59) U/L ALT 91 H (21-72) U/L Alkaline Phosphatase 443 H (38-126) U/L Total Protein 5.7 L (6.3-8.2) g/dL Albumin 3.3 L (3.5-5.0) g/dL Microbiology - Last 24 Hours (Table) 11/30/18 12:53 Blood Culture - Preliminary Blood No Growth after 48 hours <Terry Gilman - Last Filed: 12/03/18 15:56> Subjective As above. Patient's confusion persists. Liver enzymes slightly increased today. Nontender on exam. Etiology for the patient's confusion apparently has not been identified. White blood cell count is normal. Patient is afebrile. Elevated liver enzymes appear to be chronic in nature. Confusion initially was thought to be related to his liver dysfunction however ammonia level is normal. Not sure the patient would tolerate and cooperate with CAT scan or HIDA scan at this point. Given his exam being relatively benign will follow with serial abdominal examinations for now. Continue empiric antibiotics. Objective - Vital Signs Vital signs: Vital Signs Temp 99.1 F 12/03/18 08:00 Pulse 110 H 12/03/18 08:00 Resp 36 H 12/03/18 08:00 BP 104/69 12/03/18 08:00 Pulse Ox 93 L 12/03/18 08:00 Intake & Output 12/02/18 12/03/18 12/03/18 18:59 06:59 18:59 Intake Total 702 Output Total 50 150 Balance 652 -150 Weight 65.3 kg Intake: IV 480 Sodium Chloride 0.9% 1, 480 000 ml @ 40 mls/hr IV . Q24H [facility] Rx#:[id number] Oral 222 Output: Urine 50 150 Other: Voiding Method Toilet Toilet Toilet # Voids 1 1 1 # Bowel Movements 1 - Labs CBC & Chem 7: 12/03/18 07:01 12/03/18 07:01 Labs: Abnormal Lab Results - Last 24 Hours (Table) 12/03/18 12/03/18 Range/Units 07:01 07:01 MCV 103.6 H (80.0-100.0) fL RDW 16.3 H (11.5-15.5) % Plt Count 126 L (150-450) k/uL Lymphocytes # 0.5 L (1.0-4.8) k/uL Chloride 111 H (98-107) mmol/L Carbon Dioxide 19 L (22-30) mmol/L BUN 32 H (9-20) mg/dL Creatinine 1.93 H (0.66-1.25) mg/dL Total Bilirubin 3.2 H (0.2-1.3) mg/dL AST 70 H (17-59) U/L ALT 91 H (21-72) U/L Alkaline Phosphatase 443 H (38-126) U/L Total Protein 5.7 L (6.3-8.2) g/dL Albumin 3.3 L (3.5-5.0) g/dL Microbiology - Last 24 Hours (Table) 11/30/18 12:53 Blood Culture - Preliminary Blood No Growth after 72 hours Assessment and Plan (1) Gallbladder sludge Current Visit: Yes Status: Acute Code(s): K82.8 - OTHER SPECIFIED DISEASES OF GALLBLADDER SNOMED Code(s): 72182558
[2018-12-03] MEDS: ASPIRIN 325 MG TAB PO SCH (11:12)
[2018-12-03] MEDS: LACTULOSE 20 GM/30 ML CUP PO SCH ×3 (11:12→20:40)
[2018-12-03] MEDS: CLOPIDOGREL 75 MG TAB PO SCH (11:12)
[2018-12-03] MEDS: SPIRONOLACTONE 25 MG TAB PO SCH (11:14)
[2018-12-03] MEDS: POTASSIUM CHLORIDE ER 20 MEQ TAB.ER PO SCH (11:14)
[2018-12-03] MEDS: FAMOTIDINE 20 MG/2 ML VIAL IV SCH (11:31)
[2018-12-03] MEDS: HEPARIN SODIUM,PORCINE 5,000 UNIT/ML 1 ML VIAL SQ SCH ×3 (11:31→22:51)
--- NOTE | 2018-12-03 12:25 | XR ---
EXAMINATION TYPE: XR chest 2V DATE OF EXAM: 12/03/2018 COMPARISON: 12/01/2018 TECHNIQUE: PA and lateral views submitted. HISTORY: Cough FINDINGS: Heart is enlarged and there is an interstitial pattern with basilar subsegmental consolidation. Hyper trophic and degenerative changes spine. Ectasia of the aorta. IMPRESSION: 1. Correlate for interstitial pneumonitis or venous congestion. 2. Left basilar infiltrate and suspect tiny bilateral pleural effusions.
[2018-12-03 13:11] LABS: Hepatitis C IgG Antibody Non-Reactive (Non-Reactive)
--- NOTE | 2018-12-03 15:51 | P.PN ---
Subjective Progress Note Date: 12/03/18 Principal diagnosis: This is a 78-year-old male who is a history of multiple complex medical issues and was brought to the hospital by son for increasing confusion and unable to care for himself as he lives at home alone. When entering the room this morning patient was restless and twisting from side to side in bed with a patient sitter at the bedside. Patient was on 3 L of oxygen via nasal cannula with increase in respirations. Patient does not respond to questions and will not open his eyes at this time. Patient did have a brief on that shows some dried blood with some dried blood under the fingernails as patient has been itching and scratching at that area. Per patient sitter at the bedside, nursing staff attempted straight catheter with some blood noted. Urology is following this patient. Eugenia RAMOS was at the bedside from surgery and she stated from her standpoint there will be no surgical interventions at this time as his liver ultrasound showed some slud ge and large gallstones. Awaiting neurology consult at this time. Chest x-ray this morning shows that the heart is enlarged with an interstitial pattern with basilar subsegmental consolidation. Hypertrophic and degenerative changes. Ectasia of the aorta and suggested to correlate for interstitial pneumonitis or venous congestion, left basilar infiltrate, and suspect tiny bilateral pleural effusions. Patient does have a significant history of COPD and is currently on oxygen as mentioned above, but unsure if he uses home oxygen. Objective - Vital Signs Vital signs: Vital Signs Temp 99.1 F 12/03/18 08:00 Pulse 110 H 12/03/18 08:00 Resp 36 H 12/03/18 08:00 BP 104/69 12/03/18 08:00 Pulse Ox 93 L 12/03/18 08:00 Intake & Output 12/02/18 12/03/18 12/03/18 18:59 06:59 18:59 Intake Total 702 Output Total 50 150 Balance 652 -150 Weight 65.3 kg Intake: IV 480 Sodium Chloride 0.9% 1, 480 000 ml @ 40 mls/hr IV . Q24H NICOLE Rx#:[id number] Oral 222 Output: Urine 50 150 Other: Voiding Method Toilet Toilet Toilet # Voids 1 1 1 # Bowel Movements 1 - Exam Gen: This is a 78-year-old male who appears restless and is twisting from side to side in the bed with a patient sitter at the bedside. HEENT: Head is atraumatic, normocephalic. Pupils equal, round. Sclerae is anicteric. NECK: Supple. No JVD. No lymphadenopathy. No thyromegaly. LUNGS: Lung sounds diminished with mild rhonchi noted. No intercostal retractions. Tachypnea With respirations of 26/min HEART: Regular rate and rhythm. No murmur. ABDOMEN: Soft. Bowel sounds are present. No masses. No tenderness. EXTREMITIES: No pedal edema. No calf tenderness. NEUROLOGICAL: Patient is awake, alert and oriented x0. Not answering appropriately to any questions - Labs CBC & Chem 7: 12/03/18 07:01 12/03/18 07:01 Labs: Abnormal Lab Results - Last 24 Hours (Table) 12/03/18 12/03/18 Range/Units 07:01 07:01 MCV 103.6 H (80.0-100.0) fL RDW 16.3 H (11.5-15.5) % Plt Count 126 L (150-450) k/uL Lymphocytes # 0.5 L (1.0-4.8) k/uL Chloride 111 H (98-107) mmol/L Carbon Dioxide 19 L (22-30) mmol/L BUN 32 H (9-20) mg/dL Creatinine 1.93 H (0.66-1.25) mg/dL Total Bilirubin 3.2 H (0.2-1.3) mg/dL AST 70 H (17-59) U/L ALT 91 H (21-72) U/L Alkaline Phosphatase 443 H (38-126) U/L Total Protein 5.7 L (6.3-8.2) g/dL Albumin 3.3 L (3.5-5.0) g/dL Microbiology - Last 24 Hours (Table) 11/30/18 12:53 Blood Culture - Preliminary Blood No Growth after 72 hours Assessment and Plan Assessment: Altered mental status, possible metabolic encephalopathy secondary to many problems including urinary bladder and gallbladder disease Generalized weakness and lethargy with confusion likely due to dehydration and volume depletion Elevated troponin levels. Due to demand ischemia/type II [place] Gallbladder disease, possible acute cholecystitis. Gallstones and sludge noted on ultrasound Urinary retention Hyperbilirubinemia and elevated alk phos level Lactic acidosis secondary to decreased tissue perfusion Coronary artery disease history of stent placement Acute kidney injury History of TURP History of DVT History of GERD Hearing disorder Hypertension Hyperlipidemia History of [place] Asthma/COPD Nicotine addiction/per son every day smoker currently continue DVT prophylaxis with heparin subcutaneous injections UDS positive for opiates and tricyclic antidepressants Recommendations and discussion: recommended to continue current medications and continue symptomatic treatment. will continue to hydrate with gentle IV therapy. We'll monitor closely the labs and vital signs. prognosis is guarded. Further recommendations to follow.
[2018-12-03] MEDS: LEVOFLOXACIN 250 MG TAB PO SCH (18:18)
[2018-12-03] MEDS: ATORVASTATIN 40 MG TAB PO SCH (20:39)
[2018-12-04] MEDS: CARVEDILOL 6.25 MG TAB PO SCH ×2 (06:05→09:12)
[2018-12-04 06:58] LABS: Calcium 8.2 mg/dL (8.4-10.2); Magnesium 2.2 mg/dL (1.6-2.3); Potassium 4.8 mmol/L (3.5-5.1)
[2018-12-04] MEDS ORDERED: FAMOTIDINE 20 MG TAB PO SCH (09:00)
[2018-12-04] MEDS: LACTULOSE 20 GM/30 ML CUP PO SCH ×2 (09:10→18:46)
[2018-12-04] MEDS: CLOPIDOGREL 75 MG TAB PO SCH (09:11)
--- NOTE | 2018-12-04 11:08 | P.PN ---
Subjective Progress Note Date: 12/04/18 Principal diagnosis: Elevated liver enzymes confusion Sitter at bedside. Agitated last night. Ammonia less than 9. CMP yesterday total bilirubin 3.2. AST 70. ALT 91. Repeat 443. Ultrasound reported gallstones. No liver masses. CBD 0.4 cm. Liver length of 17.2 cm. No as cites. Hepatitis B C serology nonreactive. Objective - Vital Signs Vital signs: Vital Signs Temp 98.0 F 12/04/18 04:00 Pulse 92 12/04/18 04:00 Resp 20 12/04/18 04:00 BP 99/69 12/04/18 04:00 Pulse Ox 93 L 12/04/18 04:00 Intake & Output 12/03/18 12/04/18 12/04/18 18:59 06:59 18:59 Intake Total 0 Output Total 150 Balance -150 0 Weight 65.2 kg Intake: Oral 0 Output: Urine 150 Other: Voiding Method Diaper Diaper # Voids 0 1 - Exam General appearance: The patient is agitated sitter at bedside unable to conve rse. HET: Head is normocephalic and atraumatic. Pupils are equal and reactive. Mild sclerae icterus. Oropharynx is clear without lesions. Neck: Supple without lymphadenopathy. Trachea midline. Heart: S1 S2. Lungs: No crackles or wheezes are heard. Abdomen: Soft, tender upper abdomen, nondistended with hypoactive bowel sounds. No palpable organomegaly or masses. Extremities: Normal skin color and turgor. No cyanosis, rash, ulceration, clubbing, or edema. Radial and pedal pulses are 2/4 bilaterally. Neurological: Agitated. - Labs CBC & Chem 7: 12/05/18 04:00 12/05/18 04:00 Labs: Abnormal Lab Results - Last 24 Hours (Table) 12/04/18 Range/Units 06:28 Chloride 112 H (98-107) mmol/L Carbon Dioxide 20 L (22-30) mmol/L BUN 45 H (9-20) mg/dL Creatinine 1.89 H (0.66-1.25) mg/dL Calcium 8.2 L (8.4-10.2) mg/dL Microbiology - Last 24 Hours (Table) 11/30/18 12:53 Blood Culture - Preliminary Blood No Growth after 72 hours Assessment and Plan (1) Altered mental status Narrative/Plan: 78-year-old male admitted with confusion mild thrombocytopenia transaminitis ultrasound abdomen reported gallstones without biliary tree dilation. History of chronic elevation of total bilirubin suspect underlying history of chronic liver disease possible cirrhosis cannot be excluded. Underlying hepatic encephalopathy possible metabolic encephalopathy could not be excluded. Current Visit: Yes Status: Acute Code(s): R41.82 - ALTERED MENTAL STATUS, UNSPECIFIED SNOMED Code(s): 341206701 (2) Cholelithiasis Current Visit: Yes Status: Acute Code(s): K80.20 - CALCULUS OF GALLBLADDER W/O CHOLECYSTITIS W/O OBSTRUCTION SNOMED Code(s): 264175096 (3) Transaminitis Current Visit: Yes Status: Acute Code(s): R74.0 - NONSPEC ELEV OF LEVELS OF TRANSAMNS & LACTIC ACID DEHYDRGNSE SNOMED Code(s): 471557503 Plan: 1. Daily CMP PT/INR. Continue present medical therapy. Review of medical records patient's transaminases with the exception of total bilirubin have been within normal limits for more than 2 years. We'll pursue serologic workup for chronic liver disease of transaminases do not improve. Will fractionate bilirubin. GS following. Continue to monitor closely. Assessment and plan a care discussed with Dr. Crouch
--- NOTE | 2018-12-04 11:14 | P.PN ---
<Eugenia Anderson - Last Filed: 12/04/18 11:08> Subjective Progress Note Date: 12/04/18 CHIEF COMPLAINT: possible cholecystitis HISTORY OF PRESENT ILLNESS: Patient examined at the bedside. More awake compared to yesterday. Remains confused. wire inspector at the bedside. She reports no BM thus far. Patient did get OOB to urinate. Has not eaten much breakfast this morning. He reports generalized abdominal pain, worse on right upper quadrant. PHYSICAL EXAM: VITAL SIGNS: Reviewed. GENERAL: Well-developed in no acute distress. HEENT: No sclera icterus. Extraocular movements grossly intact. Moist buccal mucosa. Head is atraumatic, normocephalic. ABDOMEN: Soft. Nondistended. Tenderness to palpation of all quadrants, worse on right upper quadrant. NEUROLOGIC: More awake compared to yesterday but remains lethargic. Remains confused. [place] ASSESSMENT: 1. Gallbladder sludge, 2. Possible chronic liver disease PLAN: 1. Continue current diet as tolerated 2. GI following for workup of chronic liver disease 3. Await results of abdominal xray 4. If patients mental status continues to improve, possible CT scan or HIDA scan Nurse practitioner note has been reviewed by physician. Signing provider agrees with the documented findings, assessment, and plan of care. Objective - Vital Signs Vital signs: Vital Signs Temp 98.0 F 12/04/18 04:00 Pulse 92 12/04/18 04:00 Resp 20 12/04/18 04:00 BP 99/69 12/04/18 04:00 Pulse Ox 93 L 12/04/18 04:00 Intake & Output 12/03/18 12/04/18 12/04/18 18:59 06:59 18:59 Intake Total 0 Output Total 150 Balance -150 0 Weight 65.2 kg Intake: Oral 0 Output: Urine 150 Other: Voiding Method Diaper Diaper # Voids 0 1 - Labs CBC & Chem 7: 12/03/18 07:01 12/04/18 06:28 Labs: Abnormal Lab Results - Last 24 Hours (Table) 12/04/18 Range/Units 06:28 Chloride 112 H (98-107) mmol/L Carbon Dioxide 20 L (22-30) mmol/L BUN 45 H (9-20) mg/dL Creatinine 1.89 H (0.66-1.25) mg/dL Calcium 8.2 L (8.4-10.2) mg/dL Microbiology - Last 24 Hours (Table) 11/30/18 12:53 Blood Culture - Preliminary Blood No Growth after 72 hours <Terry Gilman - Last Filed: 12/04/18 18:08> Subjective As above. Patient slightly more alert today. Today he is having some abdominal pain. Mild tenderness on exam diffusely with mild distention. CAT scan abdomen was ordered for that reason. CAT scan was reviewed. Dilated small bowel loops with relative collapse of the colon is noted. Some collapsed distal small bowel loops are seen. Patient's liver is contracted with evidence of chronic disease. Some fluid around the liver. Small amount of air seen adjacent to the stomach is noted which may be in collapsed distal transverse colon. Lack of contrast and lack of body fat in that region makes it difficult to say with certainty. Most of the contrast the patient drank is sitting in the stomach that is mildly distended. Reviewed films with the radiologist. Also reviewed the clinical scenario in detail with the patient's son Guillaume. Options of laparotomy, repeat CAT scan imaging with rectal contrast, and observation/supportive care reviewed. At this time the patient remains high risk for any surgical inte rvention. We'll plan repeat CT abdomen and pelvis with rectal contrast. Will plan nasogastric tube placement as well. Case also reviewed with Dr. Burnette by phone. Would like the patient transferred to the ICU for closer observation. Pulmonary was notified. Objective - Vital Signs Vital signs: Vital Signs Temp 97.5 F L 12/04/18 08:00 Pulse 91 12/04/18 16:00 Resp 20 12/04/18 16:00 BP 91/63 12/04/18 12:00 Pulse Ox 100 12/04/18 12:00 Intake & Output 12/03/18 12/04/18 12/04/18 18:59 06:59 18:59 Intake Total 500 Output Total 150 Balance -150 500 Weight 65.2 kg Intake: Oral 500 Output: Urine 150 Other: Voiding Method Diaper Diaper Toilet Diaper # Voids 0 1 - Labs CBC & Chem 7: 12/03/18 07:01 12/04/18 06:28 Labs: Abnormal Lab Results - Last 24 Hours (Table) 12/04/18 Range/Units 06:28 Chloride 112 H (98-107) mmol/L Carbon Dioxide 20 L (22-30) mmol/L BUN 45 H (9-20) mg/dL Creatinine 1.89 H (0.66-1.25) mg/dL Calcium 8.2 L (8.4-10.2) mg/dL Microbiology - Last 24 Hours (Table) 11/30/18 12:53 Blood Culture - Preliminary Blood No Growth after 96 hours Assessment and Plan (1) Gallbladder sludge Current Visit: Yes Status: Acute Code(s): K82.8 - OTHER SPECIFIED DISEASES OF GALLBLADDER SNOMED Code(s): 19087086
--- NOTE | 2018-12-04 13:49 | XR ---
Abdomen HISTORY: Pain Frontal view of the abdomen submitted and correlated prior exam 11/25/2018 Distended loops of small and large bowel are noted. No evident pneumoperitoneum. Lung bases are clear . There are overlying cardiac leads. Probable vascular calcifications noted within the pelvis. IMPRESSION: Correlate for ileus, enteritis, follow-up as indicated if bowel obstruction is suspected clinically.
[2018-12-04] MEDS: HEPARIN SODIUM,PORCINE 5,000 UNIT/ML 1 ML VIAL SQ SCH ×2 (14:49→18:46)
[2018-12-04] MEDS: IOPAMIDOL-300 CONTRAST 30 ML VIAL (ORAL USE) PO PRN ×2 (15:15→16:23)
--- NOTE | 2018-12-04 15:19 | P.PN ---
Subjective Progress Note Date: 12/04/18 Principal diagnosis: This is a 78-year-old male who is a history of multiple complex medical issues and was brought to the hospital by son for increasing confusion and unable to care for himself as he lives at home alone. When entering the room this morning patient was restless and twisting from side to side in bed with a patient sitter at the bedside. Patient was on 3 L of oxygen via nasal cannula with increase in respirations. Patient does not respond to questions and will not open his eyes at this time. Patient did have a brief on that shows some dried blood with some dried blood under the fingernails as patient has been itching and scratching at that area. Per patient sitter at the bedside, nursing staff attempted straight catheter with some blood noted. Urology is following this patient. Eugenia RAMOS was at the bedside from surgery and she stated from her standpoint there will be no surgical interventions at this time as his liver ultrasound showed some slud ge and large gallstones. Awaiting neurology consult at this time. Chest x-ray this morning shows that the heart is enlarged with an interstitial pattern with basilar subsegmental consolidation. Hypertrophic and degenerative changes. Ectasia of the aorta and suggested to correlate for interstitial pneumonitis or venous congestion, left basilar infiltrate, and suspect tiny bilateral pleural effusions. Patient does have a significant history of COPD and is currently on oxygen as mentioned above, but unsure if he uses home oxygen. 12/04/2018 Patient is lying in bed resting appears in no acute distress. Patient is arousable but still not answering appropriately. Patient is less anxious at this time. Per the safety support the bedside patient is still not eating. Patient has been getting up to use the bathroom to urinate and has been having blood in the urine. Awaiting urology at this time. Patient denies any shortness of breath, chest pain, or palpitations at this time. Patient is afebrile. PT and OT on board with the patient. GI is also following the patient closely. Will continue to monitor closely. Objective - Vital Signs Vital signs: Vital Signs Temp 98.0 F 12/04/18 04:00 Pulse 92 12/04/18 04:00 Resp 20 12/04/18 04:00 BP 99/69 12/04/18 04:00 Pulse Ox 93 L 12/04/18 04:00 Intake & Output 12/03/18 12/04/18 12/04/18 18:59 06:59 18:59 Intake Total 0 Output Total 150 Balance -150 0 Weight 65.2 kg Intake: Oral 0 Output: Urine 150 Other: Voiding Method Diaper Diaper # Voids 0 1 - Exam Gen: This is a 78-year-old male lying in bed and appears in no acute distress. HEENT: Head is atraumatic, normocephalic. Pupils equal, round. Sclerae is anicteric. NECK: Supple. No JVD. No lymphadenopathy. No thyromegaly. LUNGS: Lung sounds diminished with mild rhonchi noted. No intercostal retractions. HEART: Regular rate and rhythm. No murmur. ABDOMEN: Soft. Bowel sounds are present. Thin. Mild tenderness upon palpation. EXTREMITIES: No pedal edema. No calf tenderness. NEUROLOGICAL: Patient is awake, alert and oriented x1. - Labs CBC & Chem 7: 12/03/18 07:01 12/04/18 06:28 Labs: Abnormal Lab Results - Last 24 Hours (Table) 12/04/18 Range/Units 06:28 Chloride 112 H (98-107) mmol/L Carbon Dioxide 20 L (22-30) mmol/L BUN 45 H (9-20) mg/dL Creatinine 1.89 H (0.66-1.25) mg/dL Calcium 8.2 L (8.4-10.2) mg/dL Microbiology - Last 24 Hours (Table) 11/30/18 12:53 Blood Culture - Preliminary Blood No Growth after 72 hours Assessment and Plan Assessment: Altered mental status, possible metabolic encephalopathy secondary to many problems including urinary bladder and gallbladder disease Generalized weakness and lethargy with confusion likely due to dehydration and volume depletion Elevated troponin levels. Due to demand ischemia/type II [place] Gallbladder disease, possible acute cholecystitis. Gallstones and sludge noted on ultrasound. GI is still following closely Urinary retention. Patient is urinating with blood noted. Urology is following Hyperbilirubinemia and elevated alk phos level Lactic acidosis secondary to decreased tissue perfusion Coronary artery disease history of stent placement Acute kidney injury History of TURP History of DVT History of GERD Hearing disorder Hypertension Hyperlipidemia History of [place] Asthma/COPD Nicotine addiction/per son every day smoker currently continue DVT prophylaxis with heparin subcutaneous injections UDS positive for opiates and tricyclic antidepressants Recommendations and discussion: recommended to continue current medications and continue symptomatic treatment. will continue to hydrate with gentle IV therapy. We'll monitor closely the labs and vital signs. prognosis is guarded. Further recommendations to follow. Awaiting urology consult at this time.
[2018-12-04] MEDS: SPIRONOLACTONE 25 MG TAB PO SCH (15:48)
[2018-12-04] MEDS: POTASSIUM CHLORIDE ER 20 MEQ TAB.ER PO SCH (15:48)
[2018-12-04] MEDS: ASPIRIN 325 MG TAB PO SCH (15:48)
--- NOTE | 2018-12-04 15:59 | CDI ---
Documentation Clarification Form Date: 12/04/18 15:56 From: Gabriela Burnham Admit Date: 12/02/2018 9:43:00 AM Patient Name: Brandon Jj Visit Number: [id number] ATTENTION: The Clinical Documentation Specialists (CDI) and [facility] Coding Staff appreciate your assistance in clarifying documentation. Please respond to the clarification below the line at the bottom and electronically sign. The CDI & [facility] Coding staff will review the response and follow-up if needed. Please note: Queries are made part of the Legal Health Record. If you have any questions, please contact the author of this message via ITS. Dr. Michael Burnette TEJA is documented with a hx of chronic renal failure. Please procde staging for chronic renal failure. History/Risk Factors: CAD, stents, confusion with pyelonephritis, TEJA, lactic acidosis Clinical Indicators: Current BUN: 24/25/32/45 CR:1.42/1.52/1.69/1.93/1.89 GFR: 48/44/39/33/34 11/25/18 Patients Baseline BUN/CR/GFR: 32/1.84/35 Treatment: IVF 2L Bolus Lasix 40 mg Po BID In order to capture the severity of condition, please clarify if the condition signifies: CKD Stage 1 (GFR > 90) CKD Stage 2 (GFR 60-89) CKD Stage 3 (GFR 30-59) CKD Stage 4 (GFR 15-29) CKD Stage 5 (GFR <15) ESRD Other, please specify Unable to determine (Last Revision: August 2017) CKD stage 3 (GFR 30-59) MTDD
--- NOTE | 2018-12-04 16:09 | CDI ---
Documentation Clarification Form Date: 12/04/18 [id number] From: Gabriela Burnham Admit Date: 12/02/2018 9:43:00 AM Patient Name: Brandon Jj Visit Number: [id number] ATTENTION: The Clinical Documentation Specialists (CDI) and [facility] Coding Staff appreciate your assistance in clarifying documentation. Please respond to the clarification below the line at the bottom and electronically sign. The CDI & [facility] Coding staff will review the response and follow-up if needed. Please note: Queries are made part of the Legal Health Record. If you have any questions, please contact the author of this message via ITS. Dr. Burnette History/Risk Factors: CAD with stent, DVT, Type II VA this admission, TEJA with CKD, Hx of VA, COPD, HTN, HLD Clinical Indicators: VS/Pulse OX: Temp 97.4, hr 96, rr 18, b/p 109/85, spo2 1005 on ra BNP: not checked 04/20/17 Echocardiogram Results: LV is moderately dilated, severe hypokinesis of LV, EF <20%, LA is severely dilated 12/03 Chest X Ray: interstial pneumonitis or venous congestion, tiny bilateral pleural effusions Treatment: Lasix 40 mg PO QD In your professional opinion, can you please clarify the acuity and type of CHF if known? Chronic Systolic Heart Failure Chronic Systolic & Diastolic Heart Failure: Unable to Determine Other, please specify (Last Revision: August 2017) Chronic Systolic Heart Failure MTDD
--- NOTE | 2018-12-04 17:51 | CT ---
EXAMINATION TYPE: CT abdomen pelvis wo con DATE OF EXAM: 12/04/2018 COMPARISON: 05/18/2018 CT HISTORY: Patient poor historian CT DLP: 442.3 mGycm Automated exposure control for dose reduction was used. TECHNIQUE: Helical acquisition of images was performed from the lung bases through the pelvis. FINDINGS: HOLLOW VISCERA AND PERITONEAL CAVITY: The stomach is distended. The jejunum and ileum are prominently dilated. There are a few loops of right lower quadrant ileum which are not dilated. Gas and stool se en within the right colon and proximal transverse colon. In the left upper quadrant there is prominen t indistinctness with a linear array of tiny peculiar gas bubbles anterior to the stomach, with their relationship with the transverse colon being unclear. These gas bubbles may represent pneumatosis, v ersus extraluminal/extraperitoneal or intraperitoneal. Rectal contrast will be able to delineate thes e left upper quadrant findings. There is a moderate volume of right paracolic peritoneal fluid, and t here is peritoneal fluid dependently within the pelvis. Results discussed with covering surgeon in or erin to expedite patient management decision making. LUNG BASES: No acute pleural-parenchymal process evident. Marked cardiomegaly. LIVER/GB: The gallbladder is at least mildly enlarged, with calcified cholelithiasis occupying approx imately 5% of its lumen. PANCREAS: No significant abnormality is seen. SPLEEN: No significant abnormality is seen. ADRENALS: No significant abnormality is seen. KIDNEYS: No significant abnormality is seen. RETROPERITONEAL ADENOPATHY: None visualized REPRODUCTIVE ORGANS: No significant abnormality is seen URINARY BLADDER: No significant abnormality is seen. PELVIC ADENOPATHY: None visualized. OSSEOUS STRUCTURES: No acute skeletal findings. IMPRESSION: MARKED ABNORMALITIES; FOLLOW-UP CT WITH RECTAL CONTRAST PLANNED FOR THIS EVENING.
[2018-12-04] MEDS: LEVOFLOXACIN 250 MG TAB PO SCH (18:46)
[2018-12-04 19:09] LABS: Glucose,Whole Blood 116 mg/dL (75-99)
[2018-12-04] MEDS ORDERED: SODIUM CHLORIDE 0.9% 500 ML 500 ML IV ONE ×2 (20:22→23:31)
[2018-12-04 20:31] LABS: Bilirubin, Delta 0.4 mg/dL (0.0-0.2); Bilirubin,Unconjugated 2.7 mg/dL (0.0-1.1); Total Bilirubin 3.1 mg/dL (0.2-1.3)
[2018-12-04] MEDS ORDERED: D5-0.45% NACL WITH KCL 20MEQ/L 1,000 ML IV SCH (21:15)
[2018-12-04 21:16] LABS: Albumin 2.8 g/dL (3.5-5.0); Calcium 8.3 mg/dL (8.4-10.2); Total Bilirubin 3.1 mg/dL (0.2-1.3); Total Protein 5.2 g/dL (6.3-8.2)
[2018-12-04 21:21] LABS: Basophils % (A) 0 %; Eosinophils # (A) 0.1 k/uL (0-0.7); Eosinophils % (A) 1 %; HCT 51.8 % (39.0-53.0); HGB 16.1 gm/dL (13.0-17.5); Lymphocytes # (A) 0.4 k/uL (1.0-4.8); Lymphocytes % (A) 3 %; MCH 32.4 pg (25.0-35.0); MCV 104.6 fL (80.0-100.0); Macrocytosis Moderate; Mean Platelet Volume 9.8; Monocytes # (A) 0.4 k/uL (0-1.0); Monocytes % (A) 3 %; Neutrophils % (A) 93 %; Platelet Count 110 k/uL (150-450); RBC 4.96 m/uL (4.30-5.90); RDW 15.1 % (11.5-15.5)
[2018-12-04 22:24] LABS: INR 1.5 (<1.2); Prothrombin Time 15.2 sec (9.0-12.0)
[2018-12-04] MEDS: SODIUM CHLORIDE 0.9% 1,000 ML IV SCH (22:45)
--- NOTE | 2018-12-04 23:31 | CT ---
EXAM: CT Abdomen and Pelvis Without Intravenous Contrast CLINICAL HISTORY: ITS.REASON CT Reason: Pain TECHNIQUE: Axial computed tomography images of the abdomen and pelvis without intravenous contrast. CTDI is 9.4 mGy and DLP is 534.8 mGy-cm. This CT exam was performed using one or more of the following dose reduction techniques: automated exposure control, adjustment of the mA and/or kV according to patient size, and/or use of iterative reconstruction technique. COMPARISON: 60 12/04/18 at 1655. FINDINGS: Limited images through the lung bases demonstrate bilateral pleural effusions with bibasilar infiltrates/atelectasis. Oral contrast material noted in the distal esophagus, query reflux. Rectal contrast only reaches the sigmoid colon. Oral contrast reaches jejunal loops. Redemonstration of suspected pneumatosis, evaluation remains limited due to lack of contrast opacification. Distended fluid- filled small bowel loops are again seen. Persistent 5 cm ovoid heterogeneous hyperdense lesion in the left pelvis with calcifications, unclear etiology. Additional findings essentially unchanged compared to recent prior study. IMPRESSION: No significant interval change. Limited evaluation of the colon due to poor rectal contrast opacification.
--- NOTE | 2018-12-04 23:33 | P.PN ---
Progress Note - Text Progress Note Date: 12/04/18 Patient was transferred to the ICU. Nasogastric tube was placed and approximately 300 mL of fluid was evacuated. He was then taken down to CAT scan for repeat CAT scan abdomen and pelvis with rectal contrast. The films were reviewed by myself and also with the radiologist. The films suggest the presence of pneumatosis at the splenic flexure and cecum/ascending colon. No definite perforation is evident on that study. The patient's rectal contrast and fortunately only reached the level of the sigmoid colon. The patient was then evaluated in the ICU. His white blood cell count is increased at 14.0. Lactic acid also increased. Kidney function and liver function studies slightly worsened. The patient is still confused. When I arrived they were attempting a second IV placement. The patient was alert during that procedure. He was unable to answer questions regarding pain. His abdomen appeared actually slightly less tender than previous examination several hours ago. I discussed the clinical scenario in detail with the patient's son Guillaume and also his daughter Lluvia by phone. I asked them to discuss the options of either supportive care this evening or laparotomy. If laparotomy is chosen would anticipate subtotal colectomy with ileostomy. Overall risks of surgical intervention quite high given the patient's significant comorbidities. Certainly risks of observation include progressive sepsis and as well. They are planning to discuss this amongst themselves and will contact me with her decision this evening.
--- NOTE | 2018-12-04 23:50 | P.PN ---
Progress Note - Text Progress Note Date: 12/04/18 The patient's daughter who is the POA apparently spoke with her brother Bob but did not speak with her brother Guillaume regarding decisions for surgery. She however has decided to have us proceed with laparotomy this evening. Risks of bleeding, infection, progressive sepsis, multisystem organ failure, abscess, hernia, dehiscence, DC, respiratory failure, inability to wean, were reviewed. She understands and wishes to proceed. The patient has no Zavala catheter at this time. This was discussed with Dr. Ruiz and Dr. Oneill. If the patient's bladder is noted to be distended and tense during the operation will call urology in to assist with catheter placement.
[2018-12-05] MEDS: ATORVASTATIN 40 MG TAB PO SCH (00:12)
[2018-12-05] MEDS: HEPARIN SODIUM,PORCINE 5,000 UNIT/ML 1 ML VIAL SQ SCH ×4 (00:12→23:14)
[2018-12-05] MEDS: LACTULOSE 20 GM/30 ML CUP PO SCH (00:12)
[2018-12-05] MEDS ORDERED: ETOMIDATE 2 MG/ML 10 ML VIAL ONE (00:55)
[2018-12-05] MEDS ORDERED: ceFAZolin 1,000 MG VIAL ONE (00:55)
[2018-12-05] MEDS ORDERED: fentaNYL (PF) 50 MCG/ML 2 ML AMP ONE (00:55)
[2018-12-05] MEDS ORDERED: EPINEPHrine 10 ML SYRINGE (0.1 MG/ML) ONE (00:55)
[2018-12-05] MEDS ORDERED: MIDAZOLAM 2 MG/2 ML VIAL ONE (00:55)
[2018-12-05] MEDS ORDERED: LIDOCAINE 1% INJ 10MG/ML (20 ML MDV) ONE (00:55)
[2018-12-05] MEDS ORDERED: PHENYLEPHRINE-0.9% NACL SYG 1 MG/10 ML SYRINGE ONE (00:55)
[2018-12-05] MEDS ORDERED: SUCCINYLCHOLINE CHLORIDE 100 MG/5 ML SYR IV ONE (00:55)
[2018-12-05] MEDS ORDERED: SODIUM CHLORIDE 0.9% 500 ML 500 ML IV ONE (00:59)
[2018-12-05] MEDS ORDERED: SODIUM CHLORIDE 0.9% 50 ML with ceFAZolin 2,000 MG IV ONE ×2 (01:06)
[2018-12-05] MEDS ORDERED: LACTATED RINGERS 1,000 ML IV ONE (01:30)
[2018-12-05] MEDS ORDERED: PHENYLEPHRINE 40 MG in SODIUM CHLORIDE 0.9% 250 ML IV SCH (02:30)
--- NOTE | 2018-12-05 02:33 | P.ANPRN ---
Procedure Note - Anesthesia - Invasive Line Left Arterial Line Time Out Performed: No Date of Procedure: 12/05/18 Time of Procedure: 01:30 Location of Patient Procedure: OR Preparation: Sterile Prep Arterial Line Location: Radial Ultrasound Used: No Needle Guage: 20g Narrative: ART line placed left radial secondary to severe CHF and dysfunction
--- NOTE | 2018-12-05 03:12 | P.OP ---
Date of Procedure: 12/05/18 Procedure(s) Performed: PREOPERATIVE DIAGNOSIS: Ischemic colon with pneumatosis POSTOPERATIVE DIAGNOSIS: Same PROCEDURE: Exploratory laparotomy with subtotal colectomy and end ileostomy SURGEON: Kalina EBL: [address] ANESTHESIA: General COMPLICATIONS: None OPERATIVE PROCEDURE: Patient brought in place never table in the supine position. The patient was placed under general anesthesia. Zavala catheter was not placed per discussion with urology. Midline incision was made after prepping and draping the patient sterilely. This was later lengthened superiorly. The patient had a small ventral hernia that was incorporated into our fascial opening. This contained only preperitoneal fat. The patient had a somewhat cloudy light do colored fluid that was evacuated. There did appear to be an odor. The patient's colon was inspected. The patient had evidence of ischemic colitis involving the cecum and ascending transverse and splenic flexure. At the splenic flexure there was a transition point to normal- appearing colon. The terminal ileum was mobilized. The right colon was then fully mobilized by incising the white line of Toldt. The terminal ileum was divided using a linear 75 stapler. The mesentery of the terminal ileum cecum and ascending and transverse colon was divided using combination of the LigaSure device and 0 silk ties. Care was taken to avoid injury to the ureter and duodenum. There was no evidence of perforation during the procedure. The dissection took place around the splenic flexure to the mid descending colon where the bowel was divided using a linear 75 stapler. Again that portion of the mesentery up until that point was divided using the LigaSure and 0 silk tie s. The abdomen was copiously irrigated with saline. No bleeding was seen. A small circular incision was made in the right midabdomen. Through this the terminal ileum was brought out as an end ileostomy. 3-0 silk ties were used to secure this to the peritoneum and posterior fascia. The midline fascia was then reapproximated using 2 separate double-stranded #1 PDS sutures. The skin was closed suad. Sterile dressings applied. The ostomy was applied using a 3-0 Vicryl sutures in a nisqually fashion. The bowel at the ileostomy remained viable throughout. At the end of this procedure the sponge needle and inserting counts were correct. DISPOSITION: Guarded to the ICU. I discussed the patient's condition with the family postoperatively. The daughter was present for that discussion. The seriousness of the situation was reviewed. The high likelihood of morbidity and mortality was again reviewed. All questions were answered.
[2018-12-05] MEDS: SODIUM CHLORIDE 0.9% 1,000 ML IV SCH ×3 (03:23→23:19)
[2018-12-05] MEDS: metroNIDAZOLE-NS PMX 500 MG in SALINE 1 100ML.BAG IVPB SCH ×3 (03:23→18:28)
[2018-12-05 03:50] LABS: ABG Base Excess -10.2 mmol/L; ABG HCO3 19 mmol/L (21-25); ABG Oxygen Saturation 97.2 % (94-97); ABG PCO2 55 mmHg (35-45); ABG PO2 121 mmHg (83-108); ABG TCO2 21 mmol/L (19-24)
[2018-12-05] MEDS ORDERED: NALOXONE 0.4 MG/ML 1 ML VIAL IV PRN (03:50)
[2018-12-05 03:56] LABS: ABG PH 7.14 (7.35-7.45)
[2018-12-05 04:15] LABS: INR 1.4 (<1.2); Prothrombin Time 14.4 sec (9.0-12.0)
[2018-12-05] MEDS ORDERED: PROPOFOL 1,000 MG in EMPTY BAG 1 BAG IV SCH (04:15)
[2018-12-05] MEDS ORDERED: SODIUM CHLORIDE 0.9% 1,000 ML IV ONE (04:17)
[2018-12-05 04:19] LABS: Albumin 2.3 g/dL (3.5-5.0); Calcium 7.7 mg/dL (8.4-10.2); Potassium 5.3 mmol/L (3.5-5.1); Total Bilirubin 2.3 mg/dL (0.2-1.3); Total Protein 4.5 g/dL (6.3-8.2)
[2018-12-05 04:23] LABS: Anisocytosis Slight; HCT 47.1 % (39.0-53.0); HGB 15.3 gm/dL (13.0-17.5); Hypochromasia Slight; MCH 33.6 pg (25.0-35.0); MCHC 32.4 g/dL (31.0-37.0); MCV 103.6 fL (80.0-100.0); Macrocytosis Moderate; Mean Platelet Volume 10.3; Platelet Count 113 k/uL (150-450); RBC 4.55 m/uL (4.30-5.90); RDW 16.6 % (11.5-15.5)
[2018-12-05] MEDS ORDERED: SODIUM BICARB 8.4% 50 ML SYR (1 MEQ/ML) IV STA ×3 (04:27→11:43)
[2018-12-05 04:35] LABS: Band Neutrophils % 9 %; Lymphocytes # (M) 0.72 k/uL (1.0-4.8); Metamyelocytes # (M) 0.24 k/uL (0); Metamyelocytes % 2 %; Monocytes # (M) 0.96 k/uL (0-1.0); Neutrophils % (M) 75 %; Nucleated Red Blood Cells 0 /100 WBC (0-0); Total Cells Counted 100
[2018-12-05 05:39] LABS: ABG Base Excess -5.6 mmol/L; ABG HCO3 20 mmol/L (21-25); ABG Oxygen Saturation 99.4 % (94-97); ABG PCO2 37 mmHg (35-45); ABG PH 7.34 (7.35-7.45); ABG PO2 158 mmHg (83-108); ABG TCO2 21 mmol/L (19-24)
[2018-12-05] MEDS: NOREPINEPHRINE 4 MG in SODIUM CHLORIDE 0.9% 250 ML IV SCH ×3 (07:16→23:21)
[2018-12-05] MEDS: IPRATROPIUM-ALBUTEROL 3 ML NEB INHALATION SCH ×5 (07:51→23:04)
--- NOTE | 2018-12-05 08:28 | XR ---
EXAMINATION TYPE: XR chest 1V portable DATE OF EXAM: 12/05/2018 COMPARISON: 12/03/2018 INDICATION: Intubation TECHNIQUE: Single frontal view of the chest is obtained. Positioning is in the semiupright view FINDINGS: The heart size is moderately prominent.. The pulmonary vasculature is normal. Left lower lobe infiltrate may be present. Patient has been intubated with tip of the endotracheal tube above the nargis. Nasogastric tube trans verses the thorax tip in left upper quadrant of the abdomen. EKG leads overlie the chest. There is some curvilinear lucency at the right diaphragm. Some free air may be under the diaphragm. Patient had exploratory laparotomy last evening. Report was called and findings discussed with Clau , the patient's nurse by Dr. Ribera by telephone at 0825 hours 12/05/2018. IMPRESSION: 1. Pneumoperitoneum likely postsurgical in nature. Monitoring is recommended. 2. Lines and catheters discussed above. 3. A mild retrocardiac infiltrate may be present.
[2018-12-05] MEDS: CARVEDILOL 6.25 MG TAB PO SCH (08:31)
[2018-12-05] MEDS: POTASSIUM CHLORIDE ER 20 MEQ TAB.ER PO SCH (08:34)
[2018-12-05] MEDS ORDERED: SODIUM CHLORIDE 0.9% 2,000 ML IV ONE (08:47)
[2018-12-05] MEDS: CLOPIDOGREL 75 MG TAB PO SCH (09:23)
[2018-12-05] MEDS: PANTOPRAZOLE 40 MG/10 ML VIAL IV SCH (09:23)
[2018-12-05] MEDS: CHLORHEXIDINE GLUCONATE 15 ML CUP MUCOUS MEM SCH ×2 (09:24→20:49)
[2018-12-05] MEDS: HYDROmorphone 1 MG/ML 1 ML SYRINGE IVP PRN ×2 (10:41→20:49)
--- NOTE | 2018-12-05 11:09 | P.PN ---
Subjective Progress Note Date: 12/05/18 The patient underwent abdominal exploration last night for what appeared to be a bowel obstruction and ischemic bowel. He had a resection as well as an ileostomy placed. 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 He is urinating do not recommend doing anything unless he goes into retention. We can deal for bladder neck contracture after recuperates from his bowel surgery. Objective - Vital Signs Vital signs: Vital Signs Temp 97.7 F 12/05/18 04:00 Pulse 84 12/05/18 08:01 Resp 20 12/05/18 07:00 BP 98/79 12/05/18 04:00 Pulse Ox 99 12/05/18 07:00 Intake & Output 12/04/18 12/05/18 12/05/18 18:59 06:59 18:59 Intake Total 500 3475.619 236.730 Output Total 275 150 Balance 500 3200.619 86.730 Weight 65.7 kg 65.7 kg Intake: IV 3475 125 D5-0.45% NaCl with KCl 125 20Meq/l 1,000 ml @ 125 mls/hr IV .Q8H [facility] Rx#: [id number] Sodium Chloride 0.9% 1, 500 125 000 ml @ 125 mls/hr IV . Q8H [facility] Rx#:[id number] Sodium Chloride 0.9% 1, 1000 000 ml @ 999 mls/hr IV . Q1H1M [facility] Rx#:[id number] Sodium Chloride 0.9% 500 1000 ml 500 ml @ 999 mls/hr IV .Q31M [facility] Rx#:[id number] metroNIDAZOLE-NS PMX 500 100 mg In Saline 1 100ml.bag @ 100 mls/hr IVPB Q8H [facility] Rx#:[id number] Intake, IV Titration 0.619 111.730 Amount Norepinephrine 4 mg In 55.070 Sodium Chloride 0.9% 250 ml @ 0.05 MCG/KG/MIN 12. 516 mls/hr IV .[id number] [facility] Rx#:[id number] Phenylephrine 40 mg In 51.547 Sodium Chloride 0.9% 250 ml @ 0.5 MCG/KG/MIN 12. 421 mls/hr IV .[id number] [facility] Rx#:[id number] Propofol 1,000 mg In 0.619 5.113 Empty Bag 1 bag @ Titrate IV .Q0M [facility] Rx#: [id number] Oral 500 Output: Gastric Drainage 250 150 Urine 0 0 Estimated Blood Loss 25 Other: Voiding Method Toilet Urinal Diaper # Voids 1 ABP, PAP, CO, CI - Last Documented Arterial Blood Pressure 78/53 - Labs CBC & Chem 7: 12/05/18 04:00 12/05/18 04:00 Labs: Abnormal Lab Results - Last 24 Hours (Table) 12/04/18 12/04/18 12/04/18 Range/Units 06:30 19:08 20:35 WBC 14.0 H (3.8-10.6) k/uL MCV 104.6 H (80.0-100.0) fL RDW (11.5-15.5) % Plt Count 110 L (150-450) k/uL Neutrophils # 13.0 H (1.3-7.7) k/uL Neutrophils # (Manual) (1.3-7.7) k/uL Lymphocytes # 0.4 L (1.0-4.8) k/uL Lymphocytes # (Manual) (1.0-4.8) k/uL Metamyelocytes # (Man) (0) k/uL PT (9.0-12.0) sec INR (<1.2) ABG pH (7.35-7.45) ABG pCO2 (35-45) mmHg ABG pO2 (83-108) mmHg ABG HCO3 (21-25) mmol/L ABG O2 Saturation (94-97) % Potassium (3.5-5.1) mmol/L Chloride (98-107) mmol/L Carbon Dioxide (22-30) mmol/L BUN (9-20) mg/dL Creatinine (0.66-1.25) mg/dL Glucose (74-99) mg/dL POC Glucose (mg/dL) 116 H (75-99) mg/dL Plasma Lactic Acid Nathaniel (0.7-2.0) mmol/L Calcium (8.4-10.2) mg/dL Total Bilirubin 3.1 H (0.2-1.3) mg/dL Unconjugated Bilirubin 2.7 H (0.0-1.1) mg/dL Delta Bilirubin 0.4 H (0.0-0.2) mg/dL AST (17-59) U/L ALT (21-72) U/L Alkaline Phosphatase (38-126) U/L Total Protein (6.3-8.2) g/dL Albumin (3.5-5.0) g/dL 12/04/18 12/04/18 12/04/18 Range/Units 20:35 20:35 22:02 WBC (3.8-10.6) k/uL MCV (80.0-100.0) fL RDW (11.5-15.5) % Plt Count (150-450) k/uL Neutrophils # (1.3-7.7) k/uL Neutrophils # (Manual) (1.3-7.7) k/uL Lymphocytes # (1.0-4.8) k/uL Lymphocytes # (Manual) (1.0-4.8) k/uL Metamyelocytes # (Man) (0) k/uL PT 15.2 H (9.0-12.0) sec INR 1.5 H (<1.2) ABG pH (7.35-7.45) ABG pCO2 (35-45) mmHg ABG pO2 (83-108) mmHg ABG HCO3 (21-25) mmol/L ABG O2 Saturation (94-97) % Potassium (3.5-5.1) mmol/L Chloride 110 H (98-107) mmol/L Carbon Dioxide 20 L (22-30) mmol/L BUN 54 H (9-20) mg/dL Creatinine 2.02 H (0.66-1.25) mg/dL Glucose 107 H (74-99) mg/dL POC Glucose (mg/dL) (75-99) mg/dL Plasma Lactic Acid Nathaniel 3.6 H* (0.7-2.0) mmol/L Calcium 8.3 L (8.4-10.2) mg/dL Total Bilirubin 3.1 H (0.2-1.3) mg/dL Unconjugated Bilirubin (0.0-1.1) mg/dL Delta Bilirubin (0.0-0.2) mg/dL AST 206 H (17-59) U/L ALT 233 H (21-72) U/L Alkaline Phosphatase 345 H (38-126) U/L Total Protein 5.2 L (6.3-8.2) g/dL Albumin 2.8 L (3.5-5.0) g/dL 12/05/18 12/05/18 12/05/18 Range/Units 00:47 03:36 04:00 WBC (3.8-10.6) k/uL MCV (80.0-100.0) fL RDW (11.5-15.5) % Plt Count (150-450) k/uL Neutrophils # (1.3-7.7) k/uL Neutrophils # (Manual) (1.3-7.7) k/uL Lymphocytes # (1.0-4.8) k/uL Lymphocytes # (Manual) (1.0-4.8) k/uL Metamyelocytes # (Man) (0) k/uL PT 14.4 H (9.0-12.0) sec INR 1.4 H (<1.2) ABG pH 7.14 L* (7.35-7.45) ABG pCO2 55 H (35-45) mmHg ABG pO2 121 H (83-108) mmHg ABG HCO3 19 L (21-25) mmol/L ABG O2 Saturation 97.2 H (94-97) % Potassium (3.5-5.1) mmol/L Chloride (98-107) mmol/L Carbon Dioxide (22-30) mmol/L BUN (9-20) mg/dL Creatinine (0.66-1.25) mg/dL Glucose (74-99) mg/dL POC Glucose (mg/dL) (75-99) mg/dL Plasma Lactic Acid Nathaniel 3.2 H* (0.7-2.0) mmol/L Calcium (8.4-10.2) mg/dL Total Bilirubin (0.2-1.3) mg/dL Unconjugated Bilirubin (0.0-1.1) mg/dL Delta Bilirubin (0.0-0.2) mg/dL AST (17-59) U/L ALT (21-72) U/L Alkaline Phosphatase (38-126) U/L Total Protein (6.3-8.2) g/dL Albumin (3.5-5.0) g/dL 12/05/18 12/05/18 12/05/18 Range/Units 04:00 04:00 05:38 WBC 12.0 H (3.8-10.6) k/uL MCV 103.6 H (80.0-100.0) fL RDW 16.6 H (11.5-15.5) % Plt Count 113 L (150-450) k/uL Neutrophils # (1.3-7.7) k/uL Neutrophils # (Manual) 10.00 H (1.3-7.7) k/uL Lymphocytes # (1.0-4.8) k/uL Lymphocytes # (Manual) 0.72 L (1.0-4.8) k/uL Metamyelocytes # (Man) 0.24 H (0) k/uL PT (9.0-12.0) sec INR (<1.2) ABG pH 7.34 L (7.35-7.45) ABG pCO2 (35-45) mmHg ABG pO2 158 H (83-108) mmHg ABG HCO3 20 L (21-25) mmol/L ABG O2 Saturation 99.4 H (94-97) % Potassium 5.3 H (3.5-5.1) mmol/L Chloride 114 H (98-107) mmol/L Carbon Dioxide 17 L (22-30) mmol/L BUN 55 H (9-20) mg/dL Creatinine 1.76 H (0.66-1.25) mg/dL Glucose 141 H (74-99) mg/dL POC Glucose (mg/dL) (75-99) mg/dL Plasma Lactic Acid Nathaniel (0.7-2.0) mmol/L Calcium 7.7 L (8.4-10.2) mg/dL Total Bilirubin 2.3 H (0.2-1.3) mg/dL Unconjugated Bilirubin (0.0-1.1) mg/dL Delta Bilirubin (0.0-0.2) mg/dL AST 171 H (17-59) U/L ALT 211 H (21-72) U/L Alkaline Phosphatase 266 H (38-126) U/L Total Protein 4.5 L (6.3-8.2) g/dL Albumin 2.3 L (3.5-5.0) g/dL Microbiology - Last 24 Hours (Table) 11/30/18 12:53 Blood Culture - Preliminary Blood No Growth after 96 hours
--- NOTE | 2018-12-05 11:11 | PN ---
PROGRESS NOTE ADDENDUM: CRITICAL CARE TIME: 34 minutes. SHEILA / SALMAN: [id number] /
--- NOTE | 2018-12-05 11:51 | P.PN ---
<Eugenia Anderson Adrienne - Last Filed: 12/05/18 11:43> Subjective Progress Note Date: 12/05/18 CHIEF COMPLAINT: abdominal pain HISTORY OF PRESENT ILLNESS: patient was found to have ischemic colon with pneumatosis yesterday. He underwent exposure laparotomy with subtotal colectomy and end ileostomy. Postoperative day #1. Patient remains intubated in the intensive care unit. He is 30% Fio2. ABGs improved this morning. remains hypotensive. 2 L bolus has been ordered per diving judge. Remains on vasopressor support with Levophed at 12 mcg. WBC 12.0. Hemoglobin 15.3. PHYSICAL EXAM: VITAL SIGNS: Reviewed. GENERAL: Well-developed in no acute distress-sedated on mechanical ventilation. HEENT: ET tube. NG tube with brownish/green out No sclera icterus. Extraocular movements grossly intact. Moist buccal mucosa. Head is atraumatic, normocephalic. ABDOMEN: Slightly firm. Minimal distention. Dressing with small amount of shadowing present. Ostomy site to right lower quadrant. Stoma pink. Small amount of stool noted. NEUROLOGIC: Sedated on mechanical ventilation ASSESSMENT: 1. Gallbladder sludge 2. Possible chronic liver disease 3. Ischemic colon with pneumatosis PLAN: 1. Continue ventilator management per Dr. Sotelo 2. Continue NG to LIS 3. Await further bowel function from ostomy 4. Continue antibiotics 5. Begin TPN 6. Order placed for PICC line secondary to TPN and vasopressor support Nurse practitioner note has been reviewed by physician. Signing provider agrees with the documented findings, assessment, and plan of care. Objective - Vital Signs Vital signs: Vital Signs Temp 96.8 F L 12/05/18 08:00 Pulse 81 12/05/18 11:00 Resp 20 12/05/18 11:00 BP 96/83 12/05/18 11:00 Pulse Ox 97 12/05/18 11:00 Intake & Output 12/04/18 12/05/18 12/05/18 18:59 06:59 18:59 Intake Total 500 3475.619 2461.730 Output Total 275 150 Balance 500 3200.619 2311.730 Weight 65.7 kg 65.7 kg Intake: IV 3475 2350 D5-0.45% NaCl with KCl 125 20Meq/l 1,000 ml @ 125 mls/hr IV .Q8H [facility] Rx#: [id number] Sodium Chloride 0.9% 1, 500 250 000 ml @ 125 mls/hr IV . Q8H [facility] Rx#:[id number] Sodium Chloride 0.9% 1, 1000 2000 000 ml @ 999 mls/hr IV . Q1H1M [facility] Rx#:[id number] Sodium Chloride 0.9% 500 1000 ml 500 ml @ 999 mls/hr IV .Q31M [facility] Rx#:[id number] metroNIDAZOLE-NS PMX 500 100 100 mg In Saline 1 100ml.bag @ 100 mls/hr IVPB Q8H [facility] Rx#:[id number] Intake, IV Titration 0.619 111.730 Amount Norepinephrine 4 mg In 55.070 Sodium Chloride 0.9% 250 ml @ 0.05 MCG/KG/MIN 12. 516 mls/hr IV .[id number] [facility] Rx#:[id number] Phenylephrine 40 mg In 51.547 Sodium Chloride 0.9% 250 ml @ 0.5 MCG/KG/MIN 12. 421 mls/hr IV .[id number] [facility] Rx#:[id number] Propofol 1,000 mg In 0.619 5.113 Empty Bag 1 bag @ Titrate IV .Q0M [facility] Rx#: [id number] Oral 500 Output: Gastric Drainage 250 150 Urine 0 0 Estimated Blood Loss 25 Other: Voiding Method Toilet Urinal Urinal Diaper # Voids 1 1 ABP, PAP, CO, CI - Last Documented Arterial Blood Pressure 83/54 - Labs CBC & Chem 7: 12/05/18 04:00 12/05/18 04:00 Labs: Abnormal Lab Results - Last 24 Hours (Table) 12/04/18 12/04/18 12/04/18 Range/Units 06:30 19:08 20:35 WBC 14.0 H (3.8-10.6) k/uL MCV 104.6 H (80.0-100.0) fL RDW (11.5-15.5) % Plt Count 110 L (150-450) k/uL Neutrophils # 13.0 H (1.3-7.7) k/uL Neutrophils # (Manual) (1.3-7.7) k/uL Lymphocytes # 0.4 L (1.0-4.8) k/uL Lymphocytes # (Manual) (1.0-4.8) k/uL Metamyelocytes # (Man) (0) k/uL PT (9.0-12.0) sec INR (<1.2) ABG pH (7.35-7.45) ABG pCO2 (35-45) mmHg ABG pO2 (83-108) mmHg ABG HCO3 (21-25) mmol/L ABG O2 Saturation (94-97) % Potassium (3.5-5.1) mmol/L Chloride (98-107) mmol/L Carbon Dioxide (22-30) mmol/L BUN (9-20) mg/dL Creatinine (0.66-1.25) mg/dL Glucose (74-99) mg/dL POC Glucose (mg/dL) 116 H (75-99) mg/dL Plasma Lactic Acid Nathaniel (0.7-2.0) mmol/L Calcium (8.4-10.2) mg/dL Total Bilirubin 3.1 H (0.2-1.3) mg/dL Unconjugated Bilirubin 2.7 H (0.0-1.1) mg/dL Delta Bilirubin 0.4 H (0.0-0.2) mg/dL AST (17-59) U/L ALT (21-72) U/L Alkaline Phosphatase (38-126) U/L Total Protein (6.3-8.2) g/dL Albumin (3.5-5.0) g/dL 12/04/18 12/04/18 12/04/18 Range/Units 20:35 20:35 22:02 WBC (3.8-10.6) k/uL MCV (80.0-100.0) fL RDW (11.5-15.5) % Plt Count (150-450) k/uL Neutrophils # (1.3-7.7) k/uL Neutrophils # (Manual) (1.3-7.7) k/uL Lymphocytes # (1.0-4.8) k/uL Lymphocytes # (Manual) (1.0-4.8) k/uL Metamyelocytes # (Man) (0) k/uL PT 15.2 H (9.0-12.0) sec INR 1.5 H (<1.2) ABG pH (7.35-7.45) ABG pCO2 (35-45) mmHg ABG pO2 (83-108) mmHg ABG HCO3 (21-25) mmol/L ABG O2 Saturation (94-97) % Potassium (3.5-5.1) mmol/L Chloride 110 H (98-107) mmol/L Carbon Dioxide 20 L (22-30) mmol/L BUN 54 H (9-20) mg/dL Creatinine 2.02 H (0.66-1.25) mg/dL Glucose 107 H (74-99) mg/dL POC Glucose (mg/dL) (75-99) mg/dL Plasma Lactic Acid Nathaniel 3.6 H* (0.7-2.0) mmol/L Calcium 8.3 L (8.4-10.2) mg/dL Total Bilirubin 3.1 H (0.2-1.3) mg/dL Unconjugated Bilirubin (0.0-1.1) mg/dL Delta Bilirubin (0.0-0.2) mg/dL AST 206 H (17-59) U/L ALT 233 H (21-72) U/L Alkaline Phosphatase 345 H (38-126) U/L Total Protein 5.2 L (6.3-8.2) g/dL Albumin 2.8 L (3.5-5.0) g/dL 12/05/18 12/05/18 12/05/18 Range/Units 00:47 03:36 04:00 WBC (3.8-10.6) k/uL MCV (80.0-100.0) fL RDW (11.5-15.5) % Plt Count (150-450) k/uL Neutrophils # (1.3-7.7) k/uL Neutrophils # (Manual) (1.3-7.7) k/uL Lymphocytes # (1.0-4.8) k/uL Lymphocytes # (Manual) (1.0-4.8) k/uL Metamyelocytes # (Man) (0) k/uL PT 14.4 H (9.0-12.0) sec INR 1.4 H (<1.2) ABG pH 7.14 L* (7.35-7.45) ABG pCO2 55 H (35-45) mmHg ABG pO2 121 H (83-108) mmHg ABG HCO3 19 L (21-25) mmol/L ABG O2 Saturation 97.2 H (94-97) % Potassium (3.5-5.1) mmol/L Chloride (98-107) mmol/L Carbon Dioxide (22-30) mmol/L BUN (9-20) mg/dL Creatinine (0.66-1.25) mg/dL Glucose (74-99) mg/dL POC Glucose (mg/dL) (75-99) mg/dL Plasma Lactic Acid Nathaniel 3.2 H* (0.7-2.0) mmol/L Calcium (8.4-10.2) mg/dL Total Bilirubin (0.2-1.3) mg/dL Unconjugated Bilirubin (0.0-1.1) mg/dL Delta Bilirubin (0.0-0.2) mg/dL AST (17-59) U/L ALT (21-72) U/L Alkaline Phosphatase (38-126) U/L Total Protein (6.3-8.2) g/dL Albumin (3.5-5.0) g/dL 12/05/18 12/05/18 12/05/18 Range/Units 04:00 04:00 05:38 WBC 12.0 H (3.8-10.6) k/uL MCV 103.6 H (80.0-100.0) fL RDW 16.6 H (11.5-15.5) % Plt Count 113 L (150-450) k/uL Neutrophils # (1.3-7.7) k/uL Neutrophils # (Manual) 10.00 H (1.3-7.7) k/uL Lymphocytes # (1.0-4.8) k/uL Lymphocytes # (Manual) 0.72 L (1.0-4.8) k/uL Metamyelocytes # (Man) 0.24 H (0) k/uL PT (9.0-12.0) sec INR (<1.2) ABG pH 7.34 L (7.35-7.45) ABG pCO2 (35-45) mmHg ABG pO2 158 H (83-108) mmHg ABG HCO3 20 L (21-25) mmol/L ABG O2 Saturation 99.4 H (94-97) % Potassium 5.3 H (3.5-5.1) mmol/L Chloride 114 H (98-107) mmol/L Carbon Dioxide 17 L (22-30) mmol/L BUN 55 H (9-20) mg/dL Creatinine 1.76 H (0.66-1.25) mg/dL Glucose 141 H (74-99) mg/dL POC Glucose (mg/dL) (75-99) mg/dL Plasma Lactic Acid Nathaniel (0.7-2.0) mmol/L Calcium 7.7 L (8.4-10.2) mg/dL Total Bilirubin 2.3 H (0.2-1.3) mg/dL Unconjugated Bilirubin (0.0-1.1) mg/dL Delta Bilirubin (0.0-0.2) mg/dL AST 171 H (17-59) U/L ALT 211 H (21-72) U/L Alkaline Phosphatase 266 H (38-126) U/L Total Protein 4.5 L (6.3-8.2) g/dL Albumin 2.3 L (3.5-5.0) g/dL Microbiology - Last 24 Hours (Table) 11/30/18 12:53 Blood Culture - Preliminary Blood No Growth after 96 hours <Terry Gilman - Last Filed: 12/05/18 18:54> Subjective As above. Patient doing much better than expected today. Pressors have been weaning nicely throughout the evening and morning. Patient appears to be making adequate urine bowel incontinence. Labs noted. Ostomy pink and functioning already. Agree with plans for TPN. Continue antibiotics. Continue bowel rest. Wean from ventilator per pulmonary. I will be out of town for the next [address] Paz will be covering. Clinical scenario was discussed once again with the patient's daughter Bere and son Guillaume. Current condition and it seriousness discussed. All questions answered. Objective - Vital Signs Vital signs: Vital Signs Temp 97.2 F L 12/05/18 12:00 Pulse 80 12/05/18 18:00 Resp 20 12/05/18 18:00 BP 106/76 12/05/18 18:00 Pulse Ox 98 12/05/18 18:00 Intake & Output 12/04/18 12/05/18 12/05/18 18:59 06:59 18:59 Intake Total 500 3475.619 3999.496 Output Total 275 150 Balance 500 3200.619 3849.496 Weight 65.7 kg 65.7 kg Intake: IV 3475 3500 D5-0.45% NaCl with KCl 125 20Meq/l 1,000 ml @ 125 mls/hr IV .Q8H [facility] Rx#: [id number] Sodium Chloride 0.9% 1, 500 1400 000 ml @ 125 mls/hr IV . Q8H [facility] Rx#:[id number] Sodium Chloride 0.9% 1, 1000 2000 000 ml @ 999 mls/hr IV . Q1H1M [facility] Rx#:[id number] Sodium Chloride 0.9% 500 1000 ml 500 ml @ 999 mls/hr IV .Q31M [facility] Rx#:[id number] metroNIDAZOLE-NS PMX 500 100 100 mg In Saline 1 100ml.bag @ 100 mls/hr IVPB Q8H [facility] Rx#:[id number] Intake, IV Titration 0.619 499.496 Amount Norepinephrine 4 mg In 439.485 Sodium Chloride 0.9% 250 ml @ 0.05 MCG/KG/MIN 12. 516 mls/hr IV .[id number] [facility] Rx#:[id number] Phenylephrine 40 mg In 51.547 Sodium Chloride 0.9% 250 ml @ 0.5 MCG/KG/MIN 12. 421 mls/hr IV .[id number] [facility] Rx#:[id number] Propofol 1,000 mg In 0.619 8.464 Empty Bag 1 bag @ Titrate IV .Q0M [facility] Rx#: [id number] Oral 500 Output: Gastric Drainage 250 150 Urine 0 0 Estimated Blood Loss 25 Other: Voiding Method Toilet Urinal Diaper Diaper Incontinent # Voids 1 1 ABP, PAP, CO, CI - Last Documented Arterial Blood Pressure 103/68 - Labs CBC & Chem 7: 12/05/18 04:00 12/05/18 04:00 Labs: Abnormal Lab Results - Last 24 Hours (Table) 12/04/18 12/04/18 12/04/18 Range/Units 06:30 19:08 20:35 WBC 14.0 H (3.8-10.6) k/uL MCV 104.6 H (80.0-100.0) fL RDW (11.5-15.5) % Plt Count 110 L (150-450) k/uL Neutrophils # 13.0 H (1.3-7.7) k/uL Neutrophils # (Manual) (1.3-7.7) k/uL Lymphocytes # 0.4 L (1.0-4.8) k/uL Lymphocytes # (Manual) (1.0-4.8) k/uL Metamyelocytes # (Man) (0) k/uL PT (9.0-12.0) sec INR (<1.2) ABG pH (7.35-7.45) ABG pCO2 (35-45) mmHg ABG pO2 (83-108) mmHg ABG HCO3 (21-25) mmol/L ABG O2 Saturation (94-97) % Potassium (3.5-5.1) mmol/L Chloride (98-107) mmol/L Carbon Dioxide (22-30) mmol/L BUN (9-20) mg/dL Creatinine (0.66-1.25) mg/dL Glucose (74-99) mg/dL POC Glucose (mg/dL) 116 H (75-99) mg/dL Plasma Lactic Acid Nathaniel (0.7-2.0) mmol/L Calcium (8.4-10.2) mg/dL Phosphorus (2.5-4.5) mg/dL Magnesium (1.6-2.3) mg/dL Total Bilirubin 3.1 H (0.2-1.3) mg/dL Unconjugated Bilirubin 2.7 H (0.0-1.1) mg/dL Delta Bilirubin 0.4 H (0.0-0.2) mg/dL AST (17-59) U/L ALT (21-72) U/L Alkaline Phosphatase (38-126) U/L Total Protein (6.3-8.2) g/dL Albumin (3.5-5.0) g/dL 12/04/18 12/04/18 12/04/18 Range/Units 20:35 20:35 22:02 WBC (3.8-10.6) k/uL MCV (80.0-100.0) fL RDW (11.5-15.5) % Plt Count (150-450) k/uL Neutrophils # (1.3-7.7) k/uL Neutrophils # (Manual) (1.3-7.7) k/uL Lymphocytes # (1.0-4.8) k/uL Lymphocytes # (Manual) (1.0-4.8) k/uL Metamyelocytes # (Man) (0) k/uL PT 15.2 H (9.0-12.0) sec INR 1.5 H (<1.2) ABG pH (7.35-7.45) ABG pCO2 (35-45) mmHg ABG pO2 (83-108) mmHg ABG HCO3 (21-25) mmol/L ABG O2 Saturation (94-97) % Potassium (3.5-5.1) mmol/L Chloride 110 H (98-107) mmol/L Carbon Dioxide 20 L (22-30) mmol/L BUN 54 H (9-20) mg/dL Creatinine 2.02 H (0.66-1.25) mg/dL Glucose 107 H (74-99) mg/dL POC Glucose (mg/dL) (75-99) mg/dL Plasma Lactic Acid Nathaniel 3.6 H* (0.7-2.0) mmol/L Calcium 8.3 L (8.4-10.2) mg/dL Phosphorus (2.5-4.5) mg/dL Magnesium (1.6-2.3) mg/dL Total Bilirubin 3.1 H (0.2-1.3) mg/dL Unconjugated Bilirubin (0.0-1.1) mg/dL Delta Bilirubin (0.0-0.2) mg/dL AST 206 H (17-59) U/L ALT 233 H (21-72) U/L Alkaline Phosphatase 345 H (38-126) U/L Total Protein 5.2 L (6.3-8.2) g/dL Albumin 2.8 L (3.5-5.0) g/dL 12/05/18 12/05/18 12/05/18 Range/Units 00:47 03:36 04:00 WBC (3.8-10.6) k/uL MCV (80.0-100.0) fL RDW (11.5-15.5) % Plt Count (150-450) k/uL Neutrophils # (1.3-7.7) k/uL Neutrophils # (Manual) (1.3-7.7) k/uL Lymphocytes # (1.0-4.8) k/uL Lymphocytes # (Manual) (1.0-4.8) k/uL Metamyelocytes # (Man) (0) k/uL PT 14.4 H (9.0-12.0) sec INR 1.4 H (<1.2) ABG pH 7.14 L* (7.35-7.45) ABG pCO2 55 H (35-45) mmHg ABG pO2 121 H (83-108) mmHg ABG HCO3 19 L (21-25) mmol/L ABG O2 Saturation 97.2 H (94-97) % Potassium (3.5-5.1) mmol/L Chloride (98-107) mmol/L Carbon Dioxide (22-30) mmol/L BUN (9-20) mg/dL Creatinine (0.66-1.25) mg/dL Glucose (74-99) mg/dL POC Glucose (mg/dL) (75-99) mg/dL Plasma Lactic Acid Nathaniel 3.2 H* (0.7-2.0) mmol/L Calcium (8.4-10.2) mg/dL Phosphorus (2.5-4.5) mg/dL Magnesium (1.6-2.3) mg/dL Total Bilirubin (0.2-1.3) mg/dL Unconjugated Bilirubin (0.0-1.1) mg/dL Delta Bilirubin (0.0-0.2) mg/dL AST (17-59) U/L ALT (21-72) U/L Alkaline Phosphatase (38-126) U/L Total Protein (6.3-8.2) g/dL Albumin (3.5-5.0) g/dL 12/05/18 12/05/18 12/05/18 Range/Units 04:00 04:00 04:00 WBC 12.0 H (3.8-10.6) k/uL MCV 103.6 H (80.0-100.0) fL RDW 16.6 H (11.5-15.5) % Plt Count 113 L (150-450) k/uL Neutrophils # (1.3-7.7) k/uL Neutrophils # (Manual) 10.00 H (1.3-7.7) k/uL Lymphocytes # (1.0-4.8) k/uL Lymphocytes # (Manual) 0.72 L (1.0-4.8) k/uL Metamyelocytes # (Man) 0.24 H (0) k/uL PT (9.0-12.0) sec INR (<1.2) ABG pH (7.35-7.45) ABG pCO2 (35-45) mmHg ABG pO2 (83-108) mmHg ABG HCO3 (21-25) mmol/L ABG O2 Saturation (94-97) % Potassium 5.3 H (3.5-5.1) mmol/L Chloride 114 H (98-107) mmol/L Carbon Dioxide 17 L (22-30) mmol/L BUN 55 H (9-20) mg/dL Creatinine 1.76 H (0.66-1.25) mg/dL Glucose 141 H (74-99) mg/dL POC Glucose (mg/dL) (75-99) mg/dL Plasma Lactic Acid Nathaniel (0.7-2.0) mmol/L Calcium 7.7 L (8.4-10.2) mg/dL Phosphorus 5.9 H (2.5-4.5) mg/dL Magnesium 2.5 H (1.6-2.3) mg/dL Total Bilirubin 2.3 H (0.2-1.3) mg/dL Unconjugated Bilirubin (0.0-1.1) mg/dL Delta Bilirubin (0.0-0.2) mg/dL AST 171 H (17-59) U/L ALT 211 H (21-72) U/L Alkaline Phosphatase 266 H (38-126) U/L Total Protein 4.5 L (6.3-8.2) g/dL Albumin 2.3 L (3.5-5.0) g/dL 12/05/18 Range/Units 05:38 WBC (3.8-10.6) k/uL MCV (80.0-100.0) fL RDW (11.5-15.5) % Plt Count (150-450) k/uL Neutrophils # (1.3-7.7) k/uL Neutrophils # (Manual) (1.3-7.7) k/uL Lymphocytes # (1.0-4.8) k/uL Lymphocytes # (Manual) (1.0-4.8) k/uL Metamyelocytes # (Man) (0) k/uL PT (9.0-12.0) sec INR (<1.2) ABG pH 7.34 L (7.35-7.45) ABG pCO2 (35-45) mmHg ABG pO2 158 H (83-108) mmHg ABG HCO3 20 L (21-25) mmol/L ABG O2 Saturation 99.4 H (94-97) % Potassium (3.5-5.1) mmol/L Chloride (98-107) mmol/L Carbon Dioxide (22-30) mmol/L BUN (9-20) mg/dL Creatinine (0.66-1.25) mg/dL Glucose (74-99) mg/dL POC Glucose (mg/dL) (75-99) mg/dL Plasma Lactic Acid Nathaniel (0.7-2.0) mmol/L Calcium (8.4-10.2) mg/dL Phosphorus (2.5-4.5) mg/dL Magnesium (1.6-2.3) mg/dL Total Bilirubin (0.2-1.3) mg/dL Unconjugated Bilirubin (0.0-1.1) mg/dL Delta Bilirubin (0.0-0.2) mg/dL AST (17-59) U/L ALT (21-72) U/L Alkaline Phosphatase (38-126) U/L Total Protein (6.3-8.2) g/dL Albumin (3.5-5.0) g/dL Microbiology - Last 24 Hours (Table) 11/30/18 12:53 Blood Culture - Preliminary Blood No Growth after 120 hours Assessment and Plan (1) Gallbladder sludge Current Visit: Yes Status: Acute Code(s): K82.8 - OTHER SPECIFIED DISEASES OF GALLBLADDER SNOMED Code(s): 12337176
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
--- NOTE | 2018-12-05 12:11 | PN ---
PROGRESS NOTE This is a 78-year-old gentleman who we previously had been seeing for inactive COPD and right lower lobe pulmonary nodule that we plan to workup as an outpatient. Anyway, the patient is currently postop day #1 status post exploratory laparotomy, partial colectomy and right colostomy. Apparently, the patient had developed a bowel obstruction and was near perforation. Currently, the patient remains on the ventilator. He is on the volume assist-control mode, rate of 20, tidal volume 450, FiO2 of 30%, PEEP of 5. Blood gases on the same settings except 40% show pO2 of 158, pCO2 of 37, pH of 7.34. The FiO2 was dropped from 40% to 30%. He is also getting saline at 125 mL an hour. Elias-Synephrine has been turned off and placed by norepinephrine and Levophed at 13 mcg/minute. He is on propofol at 10 mcg/kg per minute. I have asked the nurses to get a stat cortisol. We have also asked the nurses to give 2 L of fluid. Start some Dilaudid for pain control and drop the FiO2 as mentioned from 40% to 30% based on the PaO2 on blood gases this morning. In addition to the potential right lower lobe pulmonary nodule, the patient has a history of inactive COPD, CAD, cardiomyopathy with LV dysfunction with an ejection fraction of 20%. History of DVT, GERD, deafness, and ultrasound of the abdomen showing large gallstones and gallbladder sludge. Currently, the patient is still vented as mentioned above. We will see if we cannot move toward weaning and extubation. PHYSICAL EXAMINATION: VITAL SIGNS: Current vital signs are reviewed. Temperature 97.7 heart rate 84, respiratory rate 20, blood pressure is hanging about 100 systolic. The saturations are 100%. GENERAL: Appears in no acute distress. Currently sedated. HEENT: Examination is grossly unremarkable. There is an orally placed endotracheal tube and NG tube. NECK: Supple. Full range of motion. No adenopathy or thyromegaly. Neck veins are flat. CARDIOVASCULAR: Examination reveals regular rhythm and rate. Heart rate in the 90s. S1, S2 normal. Heart sounds are distant. LUNGS: Reveal a few scattered rhonchi. No wheezes or crackles. Breath sounds equal bilaterally. ABDOMEN: Abdomen is soft. Right-sided colostomy is noted. No bowel sounds. EXTREMITIES: Are intact. No cyanosis, clubbing, or edema. SKIN: Without rash. NEUROLOGIC: Examination could not be adequately assessed given his level of sedation. LABS: White count 12, hemoglobin 15.3, hematocrit 47.1, platelet count a 113,000. PT/INR 14.4 and 1.4. Blood gases have already been mentioned. Sodium 140, potassium 5.3, chloride 114, CO2 of 17. Anion gap 9. BUN and creatinine were 55 and 1.76. Plasma lactate was 3.2. It has not been repeated as yet. Total bilirubin is 2.3, AST 171, ALT 211, alk phosphatase 266. Albumin 2.3. His hep B and C antibodies were negative. Repeat lactic acid is down to 3.2. X-RAY: Chest x-ray from the shows a small pneumoperitoneum from his recent surgery. There may be some bibasilar atelectasis. Microbiology is negative. MEDICATIONS: Medications are reviewed. ASSESSMENT: 1. Postoperative day #1 status post exploratory laparotomy with partial colectomy and right-sided colostomy for bowel obstruction and near perforation. 2. History of chronic obstructive pulmonary disease, which is inactive. 3. Right lower lobe pulmonary nodule to be further evaluated as an outpatient. 4. Initial mental status changes, secondary to metabolic encephalopathy. 5. Coronary artery disease, asymptomatic. 6. History of cardiomyopathy and left ventricular dysfunction with an ejection fraction of 20%. 7. History of deep venous thrombosis. 8. Gastroesophageal reflux disease. 9. Deafness. 10.Ultrasound showing large gallstones and gallbladder sludge. PLAN: We are going to wake the patient up. If he is stable, we may give him a spontaneous breathing trial. We will get a set of weaning parameters and a cuff leak with also calculated rapid shallow breathing index. Additional recommendations and suggestions are forthcoming. Unnecessary medications have been discontinued. His antibiotic i.e. Levaquin has been converted to IV. Additional recommendations and suggestions forthcoming. Prognosis is guarded. We will continue to follow. MMODL / IJN: [id number] /
[2018-12-05 12:53] LABS: Magnesium 2.5 mg/dL (1.6-2.3); Phosphorus 5.9 mg/dL (2.5-4.5)
--- NOTE | 2018-12-05 14:36 | US ---
EXAMINATION TYPE: US kidneys/renal and bladder DATE OF EXAM: 12/05/2018 COMPARISON: NONE CLINICAL HISTORY: frederick. sob weakness trouble urinating.Patient had colostomy bag put on last night. EXAM MEASUREMENTS: Right Kidney: 8.7 x 4.7 x 4.4 cm Left Kidney: 9.0 x 4.8 x 4.3 cm Right Kidney: Cortical thinning. Left Kidney: No hydronephrosis or masses seen Bladder: There is a masslike area within the posterior bladder. This measures 2.3 x 3.1 x 3.7 cm. Add itional workup is recommended. Bilateral Jets seen: Yes IMPRESSION: Urinary bladder mass. Additional workup is recommended.
[2018-12-05] MEDS ORDERED: LIDOCAINE 1% INJ 10MG/ML (20 ML MDV) SQ ONE (15:20)
--- NOTE | 2018-12-05 16:41 | US ---
EXAMINATION TYPE: US venous doppler duplex UE RT DATE OF EXAM: 12/05/2018 COMPARISON: NONE CLINICAL HISTORY: Right brachial DVT noted on attempted PICC place. Exam limitations due to patient p ostioning. SIDE PERFORMED: Right Right Arm: Thrombus seen in right basilic vein all other vessel wnl. IMPRESSION: There is superficial vein thrombosis in the basilic vein. No evidence of deep venous thrombosis in th e right arm. There is venous flow demonstrated in the jugular subclavian axillary and brachial veins.
[2018-12-05] MEDS: LEVOFLOXACIN 250MG-D5W PMX 250 MG in DEXTROSE/WATER 1 50ML.BAG IVPB SCH (17:16)
--- NOTE | 2018-12-05 19:53 | P.PN ---
Subjective Progress Note Date: 12/05/18 Principal diagnosis: This is a 78-year-old male who is a history of multiple complex medical issues and was brought to the hospital by son for increasing confusion and unable to care for himself as he lives at home alone. When entering the room this morning patient was restless and twisting from side to side in bed with a patient sitter at the bedside. Patient was on 3 L of oxygen via nasal cannula with increase in respirations. Patient does not respond to questions and will not open his eyes at this time. Patient did have a brief on that shows some dried blood with some dried blood under the fingernails as patient has been itching and scratching at that area. Per patient sitter at the bedside, nursing staff attempted straight catheter with some blood noted. Urology is following this patient. Eugenia RAMOS was at the bedside from surgery and she stated from her standpoint there will be no surgical interventions at this time as his liver ultrasound showed some slud ge and large gallstones. Awaiting neurology consult at this time. Chest x-ray this morning shows that the heart is enlarged with an interstitial pattern with basilar subsegmental consolidation. Hypertrophic and degenerative changes. Ectasia of the aorta and suggested to correlate for interstitial pneumonitis or venous congestion, left basilar infiltrate, and suspect tiny bilateral pleural effusions. Patient does have a significant history of COPD and is currently on oxygen as mentioned above, but unsure if he uses home oxygen. 12/04/2018 Patient is lying in bed resting appears in no acute distress. Patient is arousable but still not answering appropriately. Patient is less anxious at this time. Per the safety support the bedside patient is still not eating. Patient has been getting up to use the bathroom to urinate and has been having blood in the urine. Awaiting urology at this time. Patient denies any shortness of breath, chest pain, or palpitations at this time. Patient is afebrile. PT and OT on board with the patient. GI is also following the patient closely. Will continue to monitor closely. 12/05/18 Patient was moved to the ICU after his emergent surgery was done of an exploratory laparotomy with partial colectomy and ileostomy placement of the right side due to a bowel obstruction and near perforation. Nephrology was consulted and following closely. Urology recommends no campos catheter placement due to his tight bladder neck contracture as he is urinating. Monitor for retention. Patient is still on a ventilator this morning and is currently on low pressors with Propofol for sedation. Family is at the bedside. Nitrator Operator was there as well and comforting the son at bedside. Guarded prognosis. Will monitor closely. Patient is lying in the bed comfortably in no apparent distress. Objective - Vital Signs Vital signs: Vital Signs Temp 97.2 F L 12/05/18 12:00 Pulse 80 12/05/18 19:21 Resp 18 12/05/18 19:00 BP 104/77 12/05/18 19:00 Pulse Ox 98 12/05/18 19:00 Intake & Output 12/05/18 12/05/18 12/06/18 06:59 18:59 06:59 Intake Total 3475.619 3999.496 125 Output Total 275 150 Balance 3200.619 3849.496 125 Weight 65.7 kg 65.7 kg Intake: IV 3475 3500 125 D5-0.45% NaCl with KCl 125 20Meq/l 1,000 ml @ 125 mls/hr IV .Q8H [facility] Rx#: [id number] Sodium Chloride 0.9% 1, 500 1400 125 000 ml @ 125 mls/hr IV . Q8H [facility] Rx#:[id number] Sodium Chloride 0.9% 1, 1000 2000 000 ml @ 999 mls/hr IV . Q1H1M [facility] Rx#:[id number] Sodium Chloride 0.9% 500 1000 ml 500 ml @ 999 mls/hr IV .Q31M [facility] Rx#:[id number] metroNIDAZOLE-NS PMX 500 100 100 mg In Saline 1 100ml.bag @ 100 mls/hr IVPB Q8H [facility] Rx#:[id number] Intake, IV Titration 0.619 499.496 Amount Norepinephrine 4 mg In 439.485 Sodium Chloride 0.9% 250 ml @ 0.05 MCG/KG/MIN 12. 516 mls/hr IV .[id number] [facility] Rx#:[id number] Phenylephrine 40 mg In 51.547 Sodium Chloride 0.9% 250 ml @ 0.5 MCG/KG/MIN 12. 421 mls/hr IV .[id number] [facility] Rx#:[id number] Propofol 1,000 mg In 0.619 8.464 Empty Bag 1 bag @ Titrate IV .Q0M [facility] Rx#: [id number] Output: Gastric Drainage 250 150 Urine 0 0 Estimated Blood Loss 25 Other: Voiding Method Urinal Diaper Incontinent # Voids 1 1 1 ABP, PAP, CO, CI - Last Documented Arterial Blood Pressure 120/78 - Exam Gen: This is a 78-year-old male lying in bed in the ICU still on a ventilator and appears in no acute distress. Vital signs being maintained, currently on Levophed HEENT: Head is atraumatic, normocephalic. Pupils equal, round. Sclerae is anicteric. NECK: Supple. No JVD. No lymphadenopathy. No thyromegaly. LUNGS: Lung sound clear to auscultation. No intercostal retractions. Ventilated HEART: Regular rate and rhythm. No murmur. ABDOMEN: Soft. Bowel sounds are present. no distention. Ileostomy on the right side is noted with greenish output EXTREMITIES: No pedal edema. NEUROLOGICAL: Patient under sedation and ventilated. - Labs CBC & Chem 7: 12/05/18 04:00 12/05/18 04:00 Labs: Abnormal Lab Results - Last 24 Hours (Table) 12/04/18 12/04/18 12/04/18 Range/Units 06:30 20:35 20:35 WBC 14.0 H (3.8-10.6) k/uL MCV 104.6 H (80.0-100.0) fL RDW (11.5-15.5) % Plt Count 110 L (150-450) k/uL Neutrophils # 13.0 H (1.3-7.7) k/uL Neutrophils # (Manual) (1.3-7.7) k/uL Lymphocytes # 0.4 L (1.0-4.8) k/uL Lymphocytes # (Manual) (1.0-4.8) k/uL Metamyelocytes # (Man) (0) k/uL PT (9.0-12.0) sec INR (<1.2) ABG pH (7.35-7.45) ABG pCO2 (35-45) mmHg ABG pO2 (83-108) mmHg ABG HCO3 (21-25) mmol/L ABG O2 Saturation (94-97) % Potassium (3.5-5.1) mmol/L Chloride 110 H (98-107) mmol/L Carbon Dioxide 20 L (22-30) mmol/L BUN 54 H (9-20) mg/dL Creatinine 2.02 H (0.66-1.25) mg/dL Glucose 107 H (74-99) mg/dL Plasma Lactic Acid Nathaniel (0.7-2.0) mmol/L Calcium 8.3 L (8.4-10.2) mg/dL Phosphorus (2.5-4.5) mg/dL Magnesium (1.6-2.3) mg/dL Total Bilirubin 3.1 H 3.1 H (0.2-1.3) mg/dL Unconjugated Bilirubin 2.7 H (0.0-1.1) mg/dL Delta Bilirubin 0.4 H (0.0-0.2) mg/dL AST 206 H (17-59) U/L ALT 233 H (21-72) U/L Alkaline Phosphatase 345 H (38-126) U/L Total Protein 5.2 L (6.3-8.2) g/dL Albumin 2.8 L (3.5-5.0) g/dL 12/04/18 12/04/18 12/05/18 Range/Units 20:35 22:02 00:47 WBC (3.8-10.6) k/uL MCV (80.0-100.0) fL RDW (11.5-15.5) % Plt Count (150-450) k/uL Neutrophils # (1.3-7.7) k/uL Neutrophils # (Manual) (1.3-7.7) k/uL Lymphocytes # (1.0-4.8) k/uL Lymphocytes # (Manual) (1.0-4.8) k/uL Metamyelocytes # (Man) (0) k/uL PT 15.2 H (9.0-12.0) sec INR 1.5 H (<1.2) ABG pH (7.35-7.45) ABG pCO2 (35-45) mmHg ABG pO2 (83-108) mmHg ABG HCO3 (21-25) mmol/L ABG O2 Saturation (94-97) % Potassium (3.5-5.1) mmol/L Chloride (98-107) mmol/L Carbon Dioxide (22-30) mmol/L BUN (9-20) mg/dL Creatinine (0.66-1.25) mg/dL Glucose (74-99) mg/dL Plasma Lactic Acid Nathaniel 3.6 H* 3.2 H* (0.7-2.0) mmol/L Calcium (8.4-10.2) mg/dL Phosphorus (2.5-4.5) mg/dL Magnesium (1.6-2.3) mg/dL Total Bilirubin (0.2-1.3) mg/dL Unconjugated Bilirubin (0.0-1.1) mg/dL Delta Bilirubin (0.0-0.2) mg/dL AST (17-59) U/L ALT (21-72) U/L Alkaline Phosphatase (38-126) U/L Total Protein (6.3-8.2) g/dL Albumin (3.5-5.0) g/dL 12/05/18 12/05/18 12/05/18 Range/Units 03:36 04:00 04:00 WBC (3.8-10.6) k/uL MCV (80.0-100.0) fL RDW (11.5-15.5) % Plt Count (150-450) k/uL Neutrophils # (1.3-7.7) k/uL Neutrophils # (Manual) (1.3-7.7) k/uL Lymphocytes # (1.0-4.8) k/uL Lymphocytes # (Manual) (1.0-4.8) k/uL Metamyelocytes # (Man) (0) k/uL PT 14.4 H (9.0-12.0) sec INR 1.4 H (<1.2) ABG pH 7.14 L* (7.35-7.45) ABG pCO2 55 H (35-45) mmHg ABG pO2 121 H (83-108) mmHg ABG HCO3 19 L (21-25) mmol/L ABG O2 Saturation 97.2 H (94-97) % Potassium 5.3 H (3.5-5.1) mmol/L Chloride 114 H (98-107) mmol/L Carbon Dioxide 17 L (22-30) mmol/L BUN 55 H (9-20) mg/dL Creatinine 1.76 H (0.66-1.25) mg/dL Glucose 141 H (74-99) mg/dL Plasma Lactic Acid Nathaniel (0.7-2.0) mmol/L Calcium 7.7 L (8.4-10.2) mg/dL Phosphorus (2.5-4.5) mg/dL Magnesium (1.6-2.3) mg/dL Total Bilirubin 2.3 H (0.2-1.3) mg/dL Unconjugated Bilirubin (0.0-1.1) mg/dL Delta Bilirubin (0.0-0.2) mg/dL AST 171 H (17-59) U/L ALT 211 H (21-72) U/L Alkaline Phosphatase 266 H (38-126) U/L Total Protein 4.5 L (6.3-8.2) g/dL Albumin 2.3 L (3.5-5.0) g/dL 12/05/18 12/05/18 12/05/18 Range/Units 04:00 04:00 05:38 WBC 12.0 H (3.8-10.6) k/uL MCV 103.6 H (80.0-100.0) fL RDW 16.6 H (11.5-15.5) % Plt Count 113 L (150-450) k/uL Neutrophils # (1.3-7.7) k/uL Neutrophils # (Manual) 10.00 H (1.3-7.7) k/uL Lymphocytes # (1.0-4.8) k/uL Lymphocytes # (Manual) 0.72 L (1.0-4.8) k/uL Metamyelocytes # (Man) 0.24 H (0) k/uL PT (9.0-12.0) sec INR (<1.2) ABG pH 7.34 L (7.35-7.45) ABG pCO2 (35-45) mmHg ABG pO2 158 H (83-108) mmHg ABG HCO3 20 L (21-25) mmol/L ABG O2 Saturation 99.4 H (94-97) % Potassium (3.5-5.1) mmol/L Chloride (98-107) mmol/L Carbon Dioxide (22-30) mmol/L BUN (9-20) mg/dL Creatinine (0.66-1.25) mg/dL Glucose (74-99) mg/dL Plasma Lactic Acid Nathaniel (0.7-2.0) mmol/L Calcium (8.4-10.2) mg/dL Phosphorus 5.9 H (2.5-4.5) mg/dL Magnesium 2.5 H (1.6-2.3) mg/dL Total Bilirubin (0.2-1.3) mg/dL Unconjugated Bilirubin (0.0-1.1) mg/dL Delta Bilirubin (0.0-0.2) mg/dL AST (17-59) U/L ALT (21-72) U/L Alkaline Phosphatase (38-126) U/L Total Protein (6.3-8.2) g/dL Albumin (3.5-5.0) g/dL Microbiology - Last 24 Hours (Table) 11/30/18 12:53 Blood Culture - Preliminary Blood No Growth after 120 hours Assessment and Plan Assessment: Altered mental status, possible metabolic encephalopathy secondary to many problems including urinary bladder and gallbladder disease Generalized weakness and lethargy with confusion likely due to dehydration and volume depletion Elevated troponin levels. Due to demand ischemia/type II FL Gallbladder disease, possible acute cholecystitis. Gallstones and sludge noted on ultrasound. GI is still following closely Urinary retention. Patient is urinating in a brief. no campos placement at this time. Urology is following. bladder neck contracture to be addressed at a later date s/p recovery from bowel surgery. 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 Recommendations and discussion: recommended to continue current medications and continue symptomatic treatment. will continue to monitor closely. Will monitor closely the labs and vital signs. prognosis is guarded. Further recommendations to follow. Appreciate the recommendations of nephrology, surgery, and urology as they are closely following the patient as well.
[2018-12-05] MEDS ORDERED: MVI, ADULT NO.4 WITH VIT K 10 ML, TRACE (CONC-1ML/DOSE) 1 ML, SODIUM ACETATE 30 MEQ, CA... IV ONE ×5 (20:00)
[2018-12-06] MEDS: HYDROmorphone 1 MG/ML 1 ML SYRINGE IVP PRN ×2 (02:58→07:11)
[2018-12-06] MEDS: metroNIDAZOLE-NS PMX 500 MG in SALINE 1 100ML.BAG IVPB SCH ×3 (03:03→22:02)
[2018-12-06] MEDS: IPRATROPIUM-ALBUTEROL 3 ML NEB INHALATION SCH ×5 (03:13→18:54)
[2018-12-06 04:36] LABS: Anisocytosis Slight; Basophils % (A) 0 %; Eosinophils % (A) 0 %; HGB 13.7 gm/dL (13.0-17.5); Hypochromasia Slight; Lymphocytes # (A) 0.5 k/uL (1.0-4.8); Lymphocytes % (A) 6 %; MCHC 32.6 g/dL (31.0-37.0); MCV 101.3 fL (80.0-100.0); Macrocytosis Slight; Mean Platelet Volume 10.8; Monocytes # (A) 0.3 k/uL (0-1.0); Monocytes % (A) 4 %; Neutrophils # (A) 7.9 k/uL (1.3-7.7); Neutrophils % (A) 89 %; RBC 4.14 m/uL (4.30-5.90); RDW 16.5 % (11.5-15.5); WBC 8.8 k/uL (3.8-10.6)
[2018-12-06 04:40] LABS: Ionized Calcium 5.4 mg/dL (4.5-5.3)
[2018-12-06 04:52] LABS: Calcium 7.7 mg/dL (8.4-10.2); Magnesium 2.4 mg/dL (1.6-2.3); Phosphorus 3.1 mg/dL (2.5-4.5); Potassium 4.1 mmol/L (3.5-5.1)
[2018-12-06 04:59] LABS: Platelet Count 73 k/uL (150-450)
[2018-12-06 05:00] LABS: Large Platelets Present
[2018-12-06 05:06] LABS: ABG Base Excess -2.4 mmol/L; ABG HCO3 23 mmol/L (21-25); ABG Oxygen Saturation 98.9 % (94-97); ABG PCO2 37 mmHg (35-45); ABG PO2 110 mmHg (83-108); ABG TCO2 24 mmol/L (19-24)
--- NOTE | 2018-12-06 07:07 | XR ---
EXAMINATION TYPE: XR chest 1V DATE OF EXAM: 12/06/2018 CLINICAL HISTORY: Difficulty breathing progress study. TECHNIQUE: Single AP portable semiupright view of the chest is obtained. COMPARISON: Chest x-ray from one day earlier and older studies. FINDINGS: Cardiac silhouette size is stable and enlarged. An endotracheal tube and orogastric tube a re redemonstrated. There is chronic parenchymal change that remains present without suspicious new fo priscila airspace opacity, pleural effusion, or pneumothorax. Pneumoperitoneum remains present. Osseous st ructures are intact. IMPRESSION: Overall stable findings, chronic parenchymal changes and cardiomegaly with right hilar linear scarring and/or atelectasis. No new infiltrate is seen. Pneumoperitoneum related to recent abd ominal surgery redemonstrated.
--- NOTE | 2018-12-06 08:39 | P.PN ---
Subjective Patient is seen in follow-up for acute kidney injury on chronic kidney disease. Patient is chronic kidney disease stage III. His creatinine in the range of 1.3-1.5. Creatinine peaked at 2.0 this admission and is down to 1.31 today. Currently intubated. He is on 2.5 mics of Levophed. He was also started on PPN which is running at 50 mL an hour. Vital signs are stable. General: The patient appeared well nourished and normally developed. HEENT: Head exam is unremarkable. Neck is without jugular venous distension. Intubated. LUNGS: Lungs are clear to auscultation and percussion. Breath sounds decreased. HEART: Rate and Rhythm are regular. First and second heart sounds normal. No murmurs, rubs or gallops. ABDOMEN: Bowel sounds decreased. Ileostomy noted. EXTREMITITES: No clubbing, cyanosis, or edema. Objective - Vital Signs Vital signs: Vital Signs Temp 97.9 F 12/06/18 04:00 Pulse 93 12/06/18 08:00 Resp 18 12/06/18 08:00 BP 116/86 12/06/18 08:00 Pulse Ox 97 12/06/18 08:00 Intake & Output 12/05/18 12/06/18 12/06/18 18:59 06:59 18:59 Intake Total 3999.496 1568.515 300 Output Total 150 0 0 Balance 3849.496 1568.515 300 Weight 65.7 kg 75 kg Intake: IV 3500 1500 250 Sodium Chloride 0.9% 1, 1400 1500 250 000 ml @ 125 mls/hr IV . Q8H [facility] Rx#:[id number] Sodium Chloride 0.9% 1, 2000 000 ml @ 999 mls/hr IV . Q1H1M [facility] Rx#:[id number] metroNIDAZOLE-NS PMX 500 100 mg In Saline 1 100ml.bag @ 100 mls/hr IVPB Q8H [facility] Rx#:[id number] Intake, IV Titration 499.496 68.515 50 Amount Mvi, Adult No.4 with Vit 50 K 10 ml Trace (Conc-1Ml/ Dose) 1 ml Sodium Acetate 30 meq Calcium Gluconate 1 gm In Amino Acid 4.25% -D10w 1,000 ml @ 50 mls/ hr IV .[id number] [facility] Rx#: [id number] Norepinephrine 4 mg In 439.485 68.515 Sodium Chloride 0.9% 250 ml @ 0.05 MCG/KG/MIN 12. 516 mls/hr IV .[id number] [facility] Rx#:[id number] Phenylephrine 40 mg In 51.547 Sodium Chloride 0.9% 250 ml @ 0.5 MCG/KG/MIN 12. 421 mls/hr IV .[id number] [facility] Rx#:[id number] Propofol 1,000 mg In 8.464 Empty Bag 1 bag @ Titrate IV .Q0M [facility] Rx#: [id number] Output: Gastric Drainage 150 Urine 0 0 0 Other: Voiding Method Diaper Diaper Incontinent Incontinent # Voids 1 0 0 ABP, PAP, CO, CI - Last Documented Arterial Blood Pressure 105/69 - Labs CBC & Chem 7: 12/06/18 04:25 12/06/18 04:25 Labs: Abnormal Lab Results - Last 24 Hours (Table) 12/05/18 12/06/18 12/06/18 Range/Units 04:00 04:25 04:25 RBC 4.14 L (4.30-5.90) m/uL MCV 101.3 H (80.0-100.0) fL RDW 16.5 H (11.5-15.5) % Plt Count 73 L (150-450) k/uL Neutrophils # 7.9 H (1.3-7.7) k/uL Lymphocytes # 0.5 L (1.0-4.8) k/uL ABG pO2 (83-108) mmHg ABG O2 Saturation (94-97) % Chloride 118 H (98-107) mmol/L BUN 49 H (9-20) mg/dL Creatinine 1.34 H (0.66-1.25) mg/dL Glucose 135 H (74-99) mg/dL Calcium 7.7 L (8.4-10.2) mg/dL Ionized Calcium Deonte 5.4 H (4.5-5.3) mg/dL Phosphorus 5.9 H (2.5-4.5) mg/dL Magnesium 2.5 H 2.4 H (1.6-2.3) mg/dL 12/06/18 Range/Units 05:04 RBC (4.30-5.90) m/uL MCV (80.0-100.0) fL RDW (11.5-15.5) % Plt Count (150-450) k/uL Neutrophils # (1.3-7.7) k/uL Lymphocytes # (1.0-4.8) k/uL ABG pO2 110 H (83-108) mmHg ABG O2 Saturation 98.9 H (94-97) % Chloride (98-107) mmol/L BUN (9-20) mg/dL Creatinine (0.66-1.25) mg/dL Glucose (74-99) mg/dL Calcium (8.4-10.2) mg/dL Ionized Calcium Deonte (4.5-5.3) mg/dL Phosphorus (2.5-4.5) mg/dL Magnesium (1.6-2.3) mg/dL Microbiology - Last 24 Hours (Table) 11/30/18 12:53 Blood Culture - Preliminary Blood No Growth after 120 hours Assessment and Plan Plan: Assessment: 1. Acute kidney injury mostly prerenal secondary to hypotension. Creatinine peaked at 2.0 to this admission and is 1.34 today. Kidneys are small in size but no evidence of hydronephrosis. 2. Chronic kidney disease stage III. Baseline creatinine in the range of 1.3- 1.5 most likely secondary to nephrosclerosis. Patient does not follow with a warehouse director outpatient. 3. 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 Currently does not have a Zavala catheter. Urology following. 4. Metabolic acidosis secondary to acute kidney injury and IV fluids. Also component of lactic acidosis which is due to hypotension. Better. 5. Mild hyperkalemia secondary to metabolic acidosis and acute kidney injury. Better. 6. 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 7. Systolic CHF with ejection fraction of less than 20% from echocardiogram done in March 2017. 8. Bladder mass. This will need to be further worked up by urology. Plan: Decrease rate of normal saline to 50 mL an hour. Patient is also on PPN. Continue to monitor renal function and urine output. Wean vasopressors and FiO2.
[2018-12-06] MEDS: PANTOPRAZOLE 40 MG/10 ML VIAL IV SCH (08:44)
[2018-12-06] MEDS: CHLORHEXIDINE GLUCONATE 15 ML CUP MUCOUS MEM SCH ×2 (08:44→21:55)
[2018-12-06] MEDS: CLOPIDOGREL 75 MG TAB PO SCH (08:44)
[2018-12-06] MEDS: HEPARIN SODIUM,PORCINE 5,000 UNIT/ML 1 ML VIAL SQ SCH ×2 (08:44→18:24)
--- NOTE | 2018-12-06 09:48 | P.PN ---
Subjective Progress Note Date: 12/06/18 CHIEF COMPLAINT: abdominal pain HISTORY OF PRESENT ILLNESS: Patient is s/p exploratory laparotomy with subtotal colectomy and end ileostomy secondary to ischemic colon with pneumatosis. Postoperative day #2. Patient remains intubated in the intensive care unit. He is 30% Fio2. Off sedation since yesterday. Receiving Dilaudid PRN. Levophed down to 2mcg. Unable to place PICC line yesterday. WBC 8.8. PHYSICAL EXAM: VITAL SIGNS: Reviewed. GENERAL: Well-developed in no acute distress-remains on mechanical ventilation. HEENT: ET tube. NG tube with bilious output. No sclera icterus. Extraocular movements grossly intact. Moist buccal mucosa. Head is atraumatic, normocephalic. ABDOMEN: Soft. Nondistended. Dressing with small amount of shadowing present. Ostomy site to right lower quadrant. Stoma pink. Small amount of stool noted. NEUROLOGIC: Remains on mechanical ventilation ASSESSMENT: 1. Gallbladder sludge 2. Possible chronic liver disease 3. Ischemic colon with pneumatosis PLAN: 1. Continue ventilator management per Dr. Sotelo 2. Continue NG to LIS 3. Continue antibiotics 4. Hopefully patient can be extubated within the next 24-48 hours. Will continue PPN at this time and begin clear liquids when patient is extubated and able to tolerate Nurse practitioner note has been reviewed by physician. Signing provider agrees with the documented findings, assessment, and plan of care. Objective - Vital Signs Vital signs: Vital Signs Temp 97.9 F 12/06/18 04:00 Pulse 93 12/06/18 08:00 Resp 18 12/06/18 08:00 BP 116/86 12/06/18 08:00 Pulse Ox 97 12/06/18 08:00 Intake & Output 12/05/18 12/06/18 12/06/18 18:59 06:59 18:59 Intake Total 3999.496 1568.515 300 Output Total 150 0 0 Balance 3849.496 1568.515 300 Weight 65.7 kg 75 kg Intake: IV 3500 1500 250 Sodium Chloride 0.9% 1, 1400 1500 250 000 ml @ 125 mls/hr IV . Q8H [facility] Rx#:[id number] Sodium Chloride 0.9% 1, 2000 000 ml @ 999 mls/hr IV . Q1H1M [facility] Rx#:[id number] metroNIDAZOLE-NS PMX 500 100 mg In Saline 1 100ml.bag @ 100 mls/hr IVPB Q8H [facility] Rx#:[id number] Intake, IV Titration 499.496 68.515 50 Amount Mvi, Adult No.4 with Vit 50 K 10 ml Trace (Conc-1Ml/ Dose) 1 ml Sodium Acetate 30 meq Calcium Gluconate 1 gm In Amino Acid 4.25% -D10w 1,000 ml @ 50 mls/ hr IV .[id number] [facility] Rx#: [id number] Norepinephrine 4 mg In 439.485 68.515 Sodium Chloride 0.9% 250 ml @ 0.05 MCG/KG/MIN 12. 516 mls/hr IV .[id number] [facility] Rx#:[id number] Phenylephrine 40 mg In 51.547 Sodium Chloride 0.9% 250 ml @ 0.5 MCG/KG/MIN 12. 421 mls/hr IV .[id number] [facility] Rx#:[id number] Propofol 1,000 mg In 8.464 Empty Bag 1 bag @ Titrate IV .Q0M [facility] Rx#: [id number] Output: Gastric Drainage 150 Urine 0 0 0 Other: Voiding Method Diaper Diaper Incontinent Incontinent # Voids 1 0 0 ABP, PAP, CO, CI - Last Documented Arterial Blood Pressure 105/69 - Labs CBC & Chem 7: 12/06/18 04:25 12/06/18 04:25 Labs: Abnormal Lab Results - Last 24 Hours (Table) 12/05/18 12/06/18 12/06/18 Range/Units 04:00 04:25 04:25 RBC 4.14 L (4.30-5.90) m/uL MCV 101.3 H (80.0-100.0) fL RDW 16.5 H (11.5-15.5) % Plt Count 73 L (150-450) k/uL Neutrophils # 7.9 H (1.3-7.7) k/uL Lymphocytes # 0.5 L (1.0-4.8) k/uL ABG pO2 (83-108) mmHg ABG O2 Saturation (94-97) % Chloride 118 H (98-107) mmol/L BUN 49 H (9-20) mg/dL Creatinine 1.34 H (0.66-1.25) mg/dL Glucose 135 H (74-99) mg/dL Calcium 7.7 L (8.4-10.2) mg/dL Ionized Calcium Deonte 5.4 H (4.5-5.3) mg/dL Phosphorus 5.9 H (2.5-4.5) mg/dL Magnesium 2.5 H 2.4 H (1.6-2.3) mg/dL 12/06/18 Range/Units 05:04 RBC (4.30-5.90) m/uL MCV (80.0-100.0) fL RDW (11.5-15.5) % Plt Count (150-450) k/uL Neutrophils # (1.3-7.7) k/uL Lymphocytes # (1.0-4.8) k/uL ABG pO2 110 H (83-108) mmHg ABG O2 Saturation 98.9 H (94-97) % Chloride (98-107) mmol/L BUN (9-20) mg/dL Creatinine (0.66-1.25) mg/dL Glucose (74-99) mg/dL Calcium (8.4-10.2) mg/dL Ionized Calcium Deonte (4.5-5.3) mg/dL Phosphorus (2.5-4.5) mg/dL Magnesium (1.6-2.3) mg/dL Microbiology - Last 24 Hours (Table) 11/30/18 12:53 Blood Culture - Preliminary Blood No Growth after 120 hours
[2018-12-06] MEDS: SODIUM CHLORIDE 0.9% 1,000 ML IV SCH ×2 (09:56→10:45)
[2018-12-06 10:02] LABS: ABG Base Excess -2.2 mmol/L; ABG HCO3 23 mmol/L (21-25); ABG Oxygen Saturation 98.5 % (94-97); ABG PCO2 38 mmHg (35-45); ABG PH 7.39 (7.35-7.45); ABG PO2 111 mmHg (83-108); ABG TCO2 24 mmol/L (19-24)
[2018-12-06 10:06] LABS: Allen Test Performed? no
[2018-12-06] MEDS ORDERED: INSULIN ASPART (NovoLOG) 100 UNIT/ML VIAL SQ SCH (10:15)
--- NOTE | 2018-12-06 10:29 | PN ---
PROGRESS NOTE DATE OF SERVICE: December 06, 2018 This is a 78-year-old male that we had previously been seeing for inactive COPD and possible right lower lobe pulmonary nodule. The patient had been signed off our census because we are going to evaluate him in the outpatient setting for the possible right lower lobe pulmonary nodule. Apparently, he developed abdominal pain and was found to have a near perforated colon. Hence, the patient underwent an exploratory laparotomy, partial colectomy, right colostomy. He is postop day #2. The patient is still on mechanical ventilator. In addition, he has a history of COPD, CAD, cardiomyopathy with all the LV dysfunction and an ejection fraction of 20%, DVT, GERD, deafness, and large gallstones and gallbladder sludge via ultrasound. Currently, he is on the volume assist-control mode rate of 20, tidal volume 450, FiO2 of 30%, PEEP of 5. Blood gases show pO2 of 110, pCO2 of 37, pH 7.40. The patient is also receiving saline IV at 50 mL an hour, TPN at 50 mL an hour and norepinephrine at 2.5 mcg/minute. Yesterday, we did a daily interruption of sedation, but despite being off of propofol, the patient really did not seem to respond appropriately. The patient is getting intermittent Dilaudid for pain control. We are going to try again today to see if he can undergo a spontaneous breathing trial with possible extubation. Anyway, the patient does have an NG tube in and obviously has an endotracheal tube in. PHYSICAL EXAMINATION: VITAL SIGNS: Current vital signs include a temperature which is 97.9, heart rate 93, respiratory rate 18, blood pressure 116/86, mean 96, saturations are 97% on 30% FiO2 and PEEP of 5. GENERAL: Currently not sedated, but seemingly comfortable on the ventilator. Respiratory rate is well controlled. Minute volume is about 10 L/minute. HEENT: Examination reveals it to be relatively normal save for the orally placed endotracheal tube and the NG tube. NECK: Supple. Full range of motion. CARDIOVASCULAR: Examination reveals regular rhythm and rate. Heart rate about 90 beats per minute. S1, S2 normal. Heart sounds are distant. LUNGS: Reveal mostly clear breath sounds. No wheezes or rhonchi. No crackles. ABDOMEN: Soft. Colostomy is noted on the right side. No masses. EXTREMITIES: Are intact. No cyanosis, clubbing, or edema. SKIN: Without rash. NEUROLOGIC: Examination is difficult to assess. He does arouse. He has been receiving some Dilaudid. No propofol. He does appear to move his upper extremities well. MICROBIOLOGIC STUDIES: Microbiologic studies are thus far negative. LABS: Labs are reviewed. White count 8.8, hemoglobin 13.7, hematocrit 42, platelet count 73,000. PT/INR were 14.4 and 1.4, respectively. Blood gases were noted. PO2 110, pCO2 of 37, pH is 7.40. Sodium 144, potassium 4.1, chloride 118, CO2 is 22. Anion gap is 4. BUN and creatinine were 49 and 1.34. His glucose was 135. Calcium 7.7, ionized calcium 5.4. Phosphorus is 3.1, magnesium 2.4, cortisol 57. X-RAY: Chest x-ray shows some minimal scarring at the bases. Pneumoperitoneum is noted. There is some mild cardiomegaly. ASSESSMENT: 1. Postoperative day #2, status post exploratory laparotomy with partial colectomy and right-sided colostomy for bowel obstruction and near perforation. 2. History of chronic obstructive pulmonary disease, inactive. 3. Right lower lobe pulmonary nodule, to be further evaluated as an outpatient. 4. Mental status changes, secondary to metabolic encephalopathy. 5. Coronary artery disease, asymptomatic. 6. History of cardiomyopathy and left ventricular dysfunction with an ejection fraction of 20%. 7. History of deep venous thrombosis. 8. Gastroesophageal reflux disease. 9. Deafness. 10.Ultrasound showing large gallstones and gallbladder sludge. PLAN: The patient will be given a trial off the ventilator. We will do PSV 5, CPAP of 5. Oxygenation is good. Of concern is his mental status, he is still on a small amount of Levophed. The patient is receiving TPN. Additional recommendations and suggestions are forthcoming. Prognosis is guarded. CRITICAL CARE TIME: 33 minutes. MMODL / IJN: [id number] /
--- NOTE | 2018-12-06 10:31 | P.PN ---
Subjective Progress Note Date: 12/06/18 Principal diagnosis: This is a 78-year-old male who is a history of multiple complex medical issues and was brought to the hospital by son for increasing confusion and unable to care for himself as he lives at home alone. When entering the room this morning patient was restless and twisting from side to side in bed with a patient sitter at the bedside. Patient was on 3 L of oxygen via nasal cannula with increase in respirations. Patient does not respond to questions and will not open his eyes at this time. Patient did have a brief on that shows some dried blood with some dried blood under the fingernails as patient has been itching and scratching at that area. Per patient sitter at the bedside, nursing staff attempted straight catheter with some blood noted. Urology is following this patient. Eugenia RAMOS was at the bedside from surgery and she stated from her standpoint there will be no surgical interventions at this time as his liver ultrasound showed some slud ge and large gallstones. Awaiting neurology consult at this time. Chest x-ray this morning shows that the heart is enlarged with an interstitial pattern with basilar subsegmental consolidation. Hypertrophic and degenerative changes. Ectasia of the aorta and suggested to correlate for interstitial pneumonitis or venous congestion, left basilar infiltrate, and suspect tiny bilateral pleural effusions. Patient does have a significant history of COPD and is currently on oxygen as mentioned above, but unsure if he uses home oxygen. 12/04/2018 Patient is lying in bed resting appears in no acute distress. Patient is arousable but still not answering appropriately. Patient is less anxious at this time. Per the safety support the bedside patient is still not eating. Patient has been getting up to use the bathroom to urinate and has been having blood in the urine. Awaiting urology at this time. Patient denies any shortness of breath, chest pain, or palpitations at this time. Patient is afebrile. PT and OT on board with the patient. GI is also following the patient closely. Will continue to monitor closely. 12/05/18 Patient was moved to the ICU after his emergent surgery was done of an exploratory laparotomy with partial colectomy and ileostomy placement of the right side due to a bowel obstruction and near perforation. Nephrology was consulted and following closely. Urology recommends no campos catheter placement due to his tight bladder neck contracture as he is urinating. Monitor for retention. Patient is still on a ventilator this morning and is currently on low pressors with Propofol for sedation. Family is at the bedside. Labels Molder was there as well and comforting the son at bedside. Guarded prognosis. Will monitor closely. Patient is lying in the bed comfortably in no apparent distress. 12/06/18 Patient is still in the ICU and ventilated at this time. Patient will be weaned off of the ventilator and pressors today per Dr. Sotelo and will be monitored closely. Patient has not been on any form of sedation except for Dilaudid PRN this morning. Levophed is currently at 2mcg. Patient is still urinating in a brief as he has no campos at this time. Urology is following. Ileostomy has a small amount of loose stool output. Abdominal dressing is intact with some shadowing noted on exam. Minimal NG output of 200cc since last night. Guarded prognosis. Objective - Vital Signs Vital signs: Vital Signs Temp 97.9 F 12/06/18 04:00 Pulse 91 12/06/18 09:00 Resp 13 12/06/18 09:00 BP 116/86 12/06/18 08:00 Pulse Ox 96 12/06/18 09:00 Intake & Output 12/05/18 12/06/18 12/06/18 18:59 06:59 18:59 Intake Total 3999.496 1568.515 444.100 Output Total 150 0 0 Balance 3849.496 1568.515 444.100 Weight 65.7 kg 75 kg Intake: IV 3500 1500 250 Sodium Chloride 0.9% 1, 1400 1500 250 000 ml @ 125 mls/hr IV . Q8H [facility] Rx#:[id number] Sodium Chloride 0.9% 1, 2000 000 ml @ 999 mls/hr IV . Q1H1M [facility] Rx#:[id number] metroNIDAZOLE-NS PMX 500 100 mg In Saline 1 100ml.bag @ 100 mls/hr IVPB Q8H [facility] Rx#:[id number] Intake, IV Titration 499.496 68.515 194.100 Amount Mvi, Adult No.4 with Vit 50 K 10 ml Trace (Conc-1Ml/ Dose) 1 ml Sodium Acetate 30 meq Calcium Gluconate 1 gm In Amino Acid 4.25% -D10w 1,000 ml @ 50 mls/ hr IV .[id number] [facility] Rx#: [id number] Norepinephrine 4 mg In 439.485 68.515 144.100 Sodium Chloride 0.9% 250 ml @ 0.05 MCG/KG/MIN 12. 516 mls/hr IV .[id number] [facility] Rx#:[id number] Phenylephrine 40 mg In 51.547 Sodium Chloride 0.9% 250 ml @ 0.5 MCG/KG/MIN 12. 421 mls/hr IV .[id number] [facility] Rx#:[id number] Propofol 1,000 mg In 8.464 Empty Bag 1 bag @ Titrate IV .Q0M [facility] Rx#: [id number] Output: Gastric Drainage 150 Urine 0 0 0 Other: Voiding Method Diaper Diaper Incontinent Incontinent # Voids 1 0 0 ABP, PAP, CO, CI - Last Documented Arterial Blood Pressure 113/74 - Exam Gen: This is a 78 year old male who is intubated any lying in bed. Appears in no acute distress. HEENT: Head is atraumatic, normocephalic. Pupils equal, round. Sclerae is ani cteric. Intubated. NG tube in place. NECK: Supple. No JVD. No lymphadenopathy. No thyromegaly. LUNGS: Clear to auscultation. No wheezes or rhonchi. No intercostal retractions. HEART: Regular rate and rhythm. No murmur. ABDOMEN: Soft. Bowel sounds are present. No masses. Abdominal dressing intact with some shadowing noted. Ileostomy present with a small amount of loose, green stool noted. Stoma is pink. EXTREMITIES: No pedal edema. No calf tenderness. Mild right upper extremity swelling. NEUROLOGICAL: Patient is intubated at this time. - Labs CBC & Chem 7: 12/06/18 04:25 12/06/18 04:25 Labs: Abnormal Lab Results - Last 24 Hours (Table) 12/05/18 12/06/18 12/06/18 Range/Units 04:00 04:25 04:25 RBC 4.14 L (4.30-5.90) m/uL MCV 101.3 H (80.0-100.0) fL RDW 16.5 H (11.5-15.5) % Plt Count 73 L (150-450) k/uL Neutrophils # 7.9 H (1.3-7.7) k/uL Lymphocytes # 0.5 L (1.0-4.8) k/uL ABG pO2 (83-108) mmHg ABG O2 Saturation (94-97) % Chloride 118 H (98-107) mmol/L BUN 49 H (9-20) mg/dL Creatinine 1.34 H (0.66-1.25) mg/dL Glucose 135 H (74-99) mg/dL Calcium 7.7 L (8.4-10.2) mg/dL Ionized Calcium Deonte 5.4 H (4.5-5.3) mg/dL Phosphorus 5.9 H (2.5-4.5) mg/dL Magnesium 2.5 H 2.4 H (1.6-2.3) mg/dL 12/06/18 12/06/18 Range/Units 05:04 09:59 RBC (4.30-5.90) m/uL MCV (80.0-100.0) fL RDW (11.5-15.5) % Plt Count (150-450) k/uL Neutrophils # (1.3-7.7) k/uL Lymphocytes # (1.0-4.8) k/uL ABG pO2 110 H 111 H (83-108) mmHg ABG O2 Saturation 98.9 H 98.5 H (94-97) % Chloride (98-107) mmol/L BUN (9-20) mg/dL Creatinine (0.66-1.25) mg/dL Glucose (74-99) mg/dL Calcium (8.4-10.2) mg/dL Ionized Calcium Deonte (4.5-5.3) mg/dL Phosphorus (2.5-4.5) mg/dL Magnesium (1.6-2.3) mg/dL Microbiology - Last 24 Hours (Table) 11/30/18 12:53 Blood Culture - Preliminary Blood No Growth after 120 hours Assessment and Plan Assessment: Altered mental status, possible metabolic encephalopathy secondary to many problems including urinary bladder and gallbladder disease Generalized weakness and lethargy with confusion likely due to dehydration and volume depletion, currently intubated s/p laparotomy with partial colectomy and ileostomy placement. Off of propofol for sedation. Currently on Dilaudid PRN. Elevated troponin levels. Due to demand ischemia/type II [place] Gallbladder disease, possible acute cholecystitis. Gallstones and sludge noted on ultrasound. GI is still following closely Urinary retention. Patient is urinating in a brief. no campos placement at this time. Urology is following. bladder neck contracture to be addressed at a later date s/p recovery from bowel surgery. Hyperbilirubinemia and elevated alk phos level Lactic acidosis secondary to decreased tissue perfusion Coronary artery disease history of stent placement Acute kidney injury. Current BUN is 49, CR is 1.34. IV hydration of .9NS is decreased to 50ml/hr from 100ml/hr. Will continue to monitor. History of TURP History of DVT History of GERD Hearing disorder Hypertension Hyperlipidemia History of [place] Asthma/COPD Nicotine addiction/per son every day smoker currently continue DVT prophylaxis with heparin subcutaneous injections UDS positive for opiates and tricyclic antidepressants Ischemic bowel s/p exploratory laparotomy with subtotal colectomy and right side ileostomy placement. Recommendations and discussion: recommended to continue current medications and continue symptomatic treatment. will continue to monitor closely. Will monitor closely the labs and vital signs. prognosis is guarded. Further recommendations to follow. Patient will attempt weaning off the ventilator and Levophed today.
[2018-12-06 12:13] LABS: Glucose,Whole Blood 125 mg/dL (75-99)
[2018-12-06] MEDS ORDERED: IPRATROPIUM-ALBUTEROL 3 ML NEB INHALATION PRN (15:33)
[2018-12-06] MEDS: [UNRECOGNIZED DRUG - REMARK] IV SCH ×4 (16:21)
[2018-12-06] MEDS: LEVOFLOXACIN 250MG-D5W PMX 250 MG in DEXTROSE/WATER 1 50ML.BAG IVPB SCH (18:24)
[2018-12-06 18:39] LABS: Glucose,Whole Blood 125 mg/dL (75-99)
[2018-12-06] MEDS: INSULIN ASPART (NovoLOG) 100 UNIT/ML VIAL SQ SCH (19:09)
--- NOTE | 2018-12-06 21:10 | P.PN ---
Progress Note - Text Progress Note Date: 12/06/18 The patient underwent exploratory laparotomy and subtotal colectomy and end ileostomy yesterday. He was intubated postop but has been extubated. He remains lethargic. He was seen by Dr. Ruiz earlier in the week due to inability to insert a catheter and at that time it was felt that the patient had a vesical neck contracture that would eventually require operative incision but the patient appeared to be voiding without difficulty and it was elected to defer this. The patient was bladder scanned earlier this morning and noted to have a large amount in his bladder. I was asked to see the patient for placement of a Zavala catheter. I initially attempted to pass a 12-[place] Silastic catheter through the urethra but this met with obstruction at the bladder neck. I passed a 0.0350 wire through the urethra and into the bladder but was unable to advance the Silastic catheter beyond the region of the bladder neck. The bladder neck was dilated to 13-[place] using a ureteral reentry sheath which was passed over the soap wire. The 12-[place] Silastic catheter was then easily passed into the bladder and drained clear urine. 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 Recommendation: The patient's urethral catheter should be left in place until the need for close monitoring of the urine output is no longer necessary. It's unclear whether the patient will eventually need formal incision of the vesical neck contracture and I will defer this to Dr. Ruiz.
[2018-12-06 23:37] LABS: Glucose,Whole Blood 115 mg/dL (75-99)
[2018-12-07] MEDS ORDERED: HYDROmorphone 0.5 MG/0.5 ML SYRINGE IVP PRN (00:25)
[2018-12-07] MEDS: HEPARIN SODIUM,PORCINE 5,000 UNIT/ML 1 ML VIAL SQ SCH ×2 (00:35→08:22)
[2018-12-07] MEDS: INSULIN ASPART (NovoLOG) 100 UNIT/ML VIAL SQ SCH ×4 (00:38→18:28)
[2018-12-07] MEDS: metroNIDAZOLE-NS PMX 500 MG in SALINE 1 100ML.BAG IVPB SCH ×3 (05:00→19:47)
[2018-12-07 05:05] LABS: Anisocytosis Slight; Basophils % (A) 0 %; Eosinophils # (A) 0.1 k/uL (0-0.7); Eosinophils % (A) 1 %; HCT 39.9 % (39.0-53.0); HGB 13.2 gm/dL (13.0-17.5); Hypochromasia Slight; Lymphocytes # (A) 0.5 k/uL (1.0-4.8); Lymphocytes % (A) 6 %; MCH 33.7 pg (25.0-35.0); MCHC 33.2 g/dL (31.0-37.0); MCV 101.5 fL (80.0-100.0); Macrocytosis Slight; Mean Platelet Volume 9.9; Monocytes # (A) 0.7 k/uL (0-1.0); Monocytes % (A) 8 %; Neutrophils # (A) 6.8 k/uL (1.3-7.7); Neutrophils % (A) 83 %; RBC 3.93 m/uL (4.30-5.90); RDW 16.7 % (11.5-15.5); WBC 8.2 k/uL (3.8-10.6)
[2018-12-07 05:07] LABS: Platelet Count 60 k/uL (150-450)
[2018-12-07 05:08] LABS: Ionized Calcium 5.2 mg/dL (4.5-5.3)
[2018-12-07 05:17] LABS: Calcium 7.3 mg/dL (8.4-10.2)
[2018-12-07 05:27] LABS: Magnesium 2.3 mg/dL (1.6-2.3); Phosphorus 2.1 mg/dL (2.5-4.5); Potassium 3.8 mmol/L (3.5-5.1)
[2018-12-07 05:46] LABS: Glucose,Whole Blood 101 mg/dL (75-99)
[2018-12-07] MEDS ORDERED: Potassium Replacement Protocol 1 EACH MISC MISCELLANE PRN (05:46)
[2018-12-07] MEDS: [UNRECOGNIZED DRUG - REMARK] IV SCH ×12 (06:24→21:02)
[2018-12-07] MEDS: POTASSIUM CHLORIDE 10 MEQ in WATER FOR INJECTION 1 100ML.BAG IVPB SCH ×2 (06:25→08:23)
[2018-12-07] MEDS: SODIUM CHLORIDE 0.9% 1,000 ML IV SCH (06:26)
--- NOTE | 2018-12-07 07:04 | XR ---
EXAMINATION TYPE: XR chest 1V portable DATE OF EXAM: 12/07/2018 COMPARISON: Prior chest x-ray 12/06/2018 HISTORY: Tube placement, abnormal chest x-ray TECHNIQUE: Single frontal view of the chest is obtained. FINDINGS: There are overlying cardiac leads. Orogastric tube remains in place, distal tip is not incl uded on the exam, side-port is overlying the left upper quadrant. Patient is rotated. Heart remains e nlarged. Interval removal of the endotracheal tube. Interstitium is increased. Perihilar increased de nsity also noted. No pneumothorax. IMPRESSION: Correlate for volume overload, congestive heart failure, pulmonary venous hypertension a nd interstitial edema. Follow-up recommended. Rotated exam.
[2018-12-07] MEDS: IPRATROPIUM-ALBUTEROL 3 ML NEB INHALATION SCH ×4 (07:36→19:20)
[2018-12-07] MEDS ORDERED: FUROSEMIDE 10 MG/ML 4 ML VIAL IV STA (07:44)
--- NOTE | 2018-12-07 08:01 | P.PN ---
Subjective Patient is seen in follow-up for acute kidney injury on chronic kidney disease. Patient is chronic kidney disease stage III. His baseline creatinine has been in the range of 1.3-1.5. Creatinine peaked at 2.0 this admission and is down to 0.98 today. Patient was extubated yesterday. He is maintained on PPN. Vital signs are stable. General: The patient appeared well nourished and normally developed. HEENT: Head exam is unremarkable. Neck is without jugular venous distension. NG tube noted. LUNGS: Breath sounds decreased. HEART: Rate and Rhythm are regular. First and second heart sounds normal. No murmurs, rubs or gallops. ABDOMEN: Bowel sounds decreased. Ileostomy noted. EXTREMITITES: No clubbing, cyanosis, or edema. Objective - Vital Signs Vital signs: Vital Signs Temp 98.7 F 12/07/18 04:00 Pulse 102 H 12/07/18 07:48 Resp 26 H 12/07/18 07:00 BP 107/84 12/07/18 07:00 Pulse Ox 96 12/07/18 06:00 Intake & Output 12/06/18 12/07/18 12/07/18 18:59 06:59 18:59 Intake Total 1977.781 1006.418 105 Output Total 1725 795 450 Balance -102.971 686.418 -345 Weight 74.4 kg Intake: IV 350 1380 105 Mvi, Adult No.4 with Vit 950 95 K 10 ml Trace (Conc-1Ml/ Dose) 1 ml Sodium Acetate 30 meq In Amino Acid 4. 25%-D10w 1,000 ml @ 95 mls/hr IV .BY DURATION [facility] Rx#:[id number] Sodium Chloride 0.9% 1, 250 230 10 000 ml @ 125 mls/hr IV . Q8H [facility] Rx#:[id number] metroNIDAZOLE-NS PMX 500 100 200 mg In Saline 1 100ml.bag @ 100 mls/hr IVPB Q8H [facility] Rx#:[id number] Intake, IV Titration 1272.029 101.418 Amount Mvi, Adult No.4 with Vit 550 50 K 10 ml Trace (Conc-1Ml/ Dose) 1 ml Sodium Acetate 30 meq Calcium Gluconate 1 gm In Amino Acid 4.25% -D10w 1,000 ml @ 50 mls/ hr IV .[id number] [facility] Rx#: [id number] Norepinephrine 4 mg In 222.029 1.418 Sodium Chloride 0.9% 250 ml @ 0.05 MCG/KG/MIN 12. 516 mls/hr IV .[id number] [facility] Rx#:[id number] Sodium Chloride 0.9% 1, 500 50 000 ml @ 50 mls/hr IV . Q20H [facility] Rx#:[id number] Output: Gastric Drainage 200 Urine 1525 745 250 Stool 50 Oral Regurgitation 200 Other: Voiding Method Diaper Indwelling Catheter Incontinent # Voids 0 ABP, PAP, CO, CI - Last Documented Arterial Blood Pressure 126/91 - Labs CBC & Chem 7: 12/07/18 04:58 12/07/18 04:58 Labs: Abnormal Lab Results - Last 24 Hours (Table) 12/06/18 12/06/18 12/06/18 Range/Units 09:59 12:01 18:27 RBC (4.30-5.90) m/uL MCV (80.0-100.0) fL RDW (11.5-15.5) % Plt Count (150-450) k/uL Lymphocytes # (1.0-4.8) k/uL ABG pO2 111 H (83-108) mmHg ABG O2 Saturation 98.5 H (94-97) % Chloride (98-107) mmol/L BUN (9-20) mg/dL POC Glucose (mg/dL) 125 H 125 H (75-99) mg/dL Calcium (8.4-10.2) mg/dL Phosphorus (2.5-4.5) mg/dL 12/06/18 12/07/18 12/07/18 Range/Units 23:26 04:58 04:58 RBC 3.93 L (4.30-5.90) m/uL MCV 101.5 H (80.0-100.0) fL RDW 16.7 H (11.5-15.5) % Plt Count 60 L (150-450) k/uL Lymphocytes # 0.5 L (1.0-4.8) k/uL ABG pO2 (83-108) mmHg ABG O2 Saturation (94-97) % Chloride 119 H (98-107) mmol/L BUN 42 H (9-20) mg/dL POC Glucose (mg/dL) 115 H (75-99) mg/dL Calcium 7.3 L (8.4-10.2) mg/dL Phosphorus 2.1 L (2.5-4.5) mg/dL 12/07/18 Range/Units 05:35 RBC (4.30-5.90) m/uL MCV (80.0-100.0) fL RDW (11.5-15.5) % Plt Count (150-450) k/uL Lymphocytes # (1.0-4.8) k/uL ABG pO2 (83-108) mmHg ABG O2 Saturation (94-97) % Chloride (98-107) mmol/L BUN (9-20) mg/dL POC Glucose (mg/dL) 101 H (75-99) mg/dL Calcium (8.4-10.2) mg/dL Phosphorus (2.5-4.5) mg/dL Microbiology - Last 24 Hours (Table) 11/30/18 12:53 Blood Culture - Final Blood No Growth after 144 hours Assessment and Plan Plan: Assessment: 1. Acute kidney injury mostly prerenal secondary to hypotension. Creatinine peaked at 2.0 to this admission and is 0.98 today. Kidneys are small in size but no evidence of hydronephrosis. 2. Chronic kidney disease stage III. Baseline creatinine in the range of 1.3- 1.5 most likely secondary to nephrosclerosis. Patient does not follow with a hand tacker outpatient. 3. 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 Zavala catheter placed December 06. Urology following. 4. Metabolic acidosis secondary to acute kidney injury and IV fluids. Also component of lactic acidosis which is due to hypotension. Better. 5. Mild hyperkalemia secondary to metabolic acidosis and acute kidney injury. Better. 6. 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 7. Systolic CHF with ejection fraction of less than 20% from echocardiogram done in March 2017. 8. Bladder mass. This will need to be further worked up by urology. 9. Volume overload. Plan: Maintain PPN. Hep-Lock IV fluids. Lasix 40 mg IV once today. Continue to monitor renal function and urine output.
[2018-12-07] MEDS: CHLORHEXIDINE GLUCONATE 15 ML CUP MUCOUS MEM SCH (08:11)
[2018-12-07] MEDS ORDERED: Phosphorus Replacement Protoco 1 EACH MISC MISCELLANE PRN (08:17)
[2018-12-07] MEDS: PANTOPRAZOLE 40 MG/10 ML VIAL IV SCH (08:22)
[2018-12-07] MEDS: CLOPIDOGREL 75 MG TAB PO SCH (08:34)
--- NOTE | 2018-12-07 09:38 | PN ---
PROGRESS NOTE This is a 78-year-old male who is postop day #3, status post exploratory laparotomy with partial colectomy and right-sided colostomy for bowel obstruction and perforation. The patient was extubated a couple days ago. Doing reasonably well. He does have history of underlying COPD. It is inactive. He does also have a history of cardiomyopathy with ejection fraction of 20% and asymptomatic CAD. Currently, he is doing relatively well. He has been weaned down to 4 L nasal cannula. He is getting TPN at 95 mL an hour. He has a saline IV at O. Microbiologic data is thus far negative. The patient's mental status is slowly improved. He is still a little lethargic and somnolent. I have discontinued all narcotics and other medications, which may be having an effect on his mental status. For pain, he should get Tylenol and/or Toradol. His NG tube is still in place. The surgery was done by Dr. Terry Gilman. PHYSICAL EXAMINATION: VITAL SIGNS: Current vital signs are reviewed. His temperature is 99.3, heart rate 108, respiratory rate 26, blood pressure 160/80 and 4 L saturation 97%. GENERAL: Appears in no acute distress. He is awake. He dozes off every now and again. HEENT: Examination is grossly unremarkable. Nasal O2 in place. NG tube in place. NECK: Supple. Full range of motion. No adenopathy. Neck veins are flat. CARDIOVASCULAR: Examination reveals regular rhythm and rate. Heart rate is about 100 beats per minute. LUNGS: Reveal mostly clear breath sounds. A few scattered rhonchi. No wheezes. A few scattered crackles. Breath sounds equal bilaterally. ABDOMEN: Soft. Colostomy is noted. Bowel sounds are noted. EXTREMITIES: Are intact. No edema. SKIN: Without rash. NEUROLOGIC: Examination is brief but nonfocal. MICROBIOLOGIC DATA: Microbiologic data is thus far negative. LABORATORY DATA: Laboratory data is reviewed. White count 8.2, hemoglobin 13.2, hematocrit 39.9, platelet count is 60,000. Sodium 144, potassium 3.8, chloride 119, CO2 is 23, anion gap is 2. BUN and creatinine were 42 and 0.98. The rest of the labs look pretty good. A chest x-ray shows some mild fluid overload. His 24-hour I and O shows him to be way ahead on fluids and his weight quite increased. MEDICATIONS: Medications are reviewed. He did get Lasix today. He is on updrafts. He is getting both Levaquin and Flagyl. The rest of his medications are appropriate. ASSESSMENT: 1. Postoperative day #3, status post exploratory laparotomy with partial colectomy, right-sided colostomy for bowel obstruction/perforation. 2. History of chronic obstructive pulmonary disease, inactive. 3. Right lower lobe pulmonary nodule, to be further evaluated as an outpatient. 4. Routine postoperative ventilator management. 5. Mental status changes, secondary to metabolic encephalopathy, improved. 6. Asymptomatic coronary artery disease. 7. History of cardiomyopathy with a left ventricular ejection fraction of 20%. 8. History of deep venous thrombosis. 9. Gastroesophageal reflux disease. 10.Deafness. 11.Gallstones and gallbladder sludge on ultrasound. PLAN: The patient is doing better. We will encourage deep breathing, coughing, clearing of secretions and hourly use of incentive spirometer. Looking at his I's and O's, he is way ahead and his weight is up about 9 kg. He does get Lasix 40 mg IV push x1 per Nephrology. The patient's overall clinical status has improved. We will continue to follow. He will stay in the ICU for now. Additional recommendations and suggestions are forthcoming. Prognosis is guarded. MMODL / IJN: [id number] / MTDD
[2018-12-07] MEDS ORDERED: POTASSIUM PHOSPHATE 10 MMOL in SODIUM CHLORIDE 0.9% 250 ML IV ONE (10:00)
[2018-12-07] MEDS ORDERED: HYDROcodone/APAP 5-325MG 1 EACH TAB PO PRN (10:18)
[2018-12-07 10:45] VITALS: BMI 23.5
--- NOTE | 2018-12-07 10:49 | P.PN ---
Subjective Progress Note Date: 12/07/18 CHIEF COMPLAINT: abdominal pain HISTORY OF PRESENT ILLNESS: Patient is s/p exploratory laparotomy with subtotal colectomy and end ileostomy secondary to ischemic colon with pneumatosis. Postoperative day #3. Patient was extubated yesterday. He remains sleepy this morning. Arousable to verbal stimuli. PPN infusing. NG to LIS. WBC 8.2. Hemoglobin 13.2. PHYSICAL EXAM: VITAL SIGNS: Reviewed. GENERAL: Well-developed in no acute distress. HEENT: NG tube with bilious output. No sclera icterus. Extraocular movements grossly intact. Moist buccal mucosa. Head is atraumatic, normocephalic. ABDOMEN: Soft. Nondistended. Dressing with small amount of shadowing present. Ostomy site to right lower quadrant. Stoma pink. Small amount of stool noted. NEUROLOGIC: Drowsy. arousable to verbal stimuli. ASSESSMENT: 1. Gallbladder sludge 2. Possible chronic liver disease 3. Ischemic colon with pneumatosis PLAN: 1. Begin trickle feeds via NG tube 2. Continue PPN 3. If patient tolerates tube feedings with continued stool output, will advance tube feeding and discontinue PPN within the next 24-48 hours Nurse practitioner note has been reviewed by physician. Signing provider agrees with the documented findings, assessment, and plan of care. Objective - Vital Signs Vital signs: Vital Signs Temp 99.3 F 12/07/18 09:00 Pulse 101 H 12/07/18 10:00 Resp 27 H 12/07/18 10:00 BP 107/84 12/07/18 07:00 Pulse Ox 98 12/07/18 10:00 Intake & Output 12/06/18 12/07/18 12/07/18 18:59 06:59 18:59 Intake Total 9827.538 9359.418 500 Output Total 7656 995 1677 Balance -102.971 686.418 -580 Weight 74.4 kg 74.4 kg Intake: IV 350 1380 400 Mvi, Adult No.4 with Vit 950 380 K 10 ml Trace (Conc-1Ml/ Dose) 1 ml Sodium Acetate 30 meq In Amino Acid 4. 25%-D10w 1,000 ml @ 95 mls/hr IV .BY D[facility]ATION [facility] Rx#:[id number] Sodium Chloride 0.9% 1, 250 230 20 000 ml @ 125 mls/hr IV . Q8H [facility] Rx#:[id number] metroNIDAZOLE-NS PMX 500 100 200 mg In Saline 1 100ml.bag @ 100 mls/hr IVPB Q8H [facility] Rx#:[id number] Intake, IV Titration 1272.029 101.418 100 Amount Mvi, Adult No.4 with Vit 550 50 K 10 ml Trace (Conc-1Ml/ Dose) 1 ml Sodium Acetate 30 meq Calcium Gluconate 1 gm In Amino Acid 4.25% -D10w 1,000 ml @ 50 mls/ hr IV .[id number] [facility] Rx#: [id number] Norepinephrine 4 mg In 222.029 1.418 Sodium Chloride 0.9% 250 ml @ 0.05 MCG/KG/MIN 12. 516 mls/hr IV .[id number] [facility] Rx#:[id number] Potassium Chloride 10 meq 100 In Water For Injection 1 100ml.bag @ 100 mls/hr IVPB Q1H [facility] Rx#: [id number] Sodium Chloride 0.9% 1, 500 50 000 ml @ 50 mls/hr IV . Q20H [facility] Rx#:[id number] Output: Gastric Drainage 200 Urine 1525 745 880 Stool 50 Oral Regurgitation 200 Other: Voiding Method Diaper Indwelling Catheter Incontinent # Voids 0 ABP, PAP, CO, CI - Last Documented Arterial Blood Pressure 105/87 - Labs CBC & Chem 7: 12/07/18 04:58 12/07/18 04:58 Labs: Abnormal Lab Results - Last 24 Hours (Table) 12/06/18 12/06/18 12/06/18 Range/Units 12:01 18:27 23:26 RBC (4.30-5.90) m/uL MCV (80.0-100.0) fL RDW (11.5-15.5) % Plt Count (150-450) k/uL Lymphocytes # (1.0-4.8) k/uL Chloride (98-107) mmol/L BUN (9-20) mg/dL POC Glucose (mg/dL) 125 H 125 H 115 H (75-99) mg/dL Calcium (8.4-10.2) mg/dL Phosphorus (2.5-4.5) mg/dL 12/07/18 12/07/18 12/07/18 Range/Units 04:58 04:58 05:35 RBC 3.93 L (4.30-5.90) m/uL MCV 101.5 H (80.0-100.0) fL RDW 16.7 H (11.5-15.5) % Plt Count 60 L (150-450) k/uL Lymphocytes # 0.5 L (1.0-4.8) k/uL Chloride 119 H (98-107) mmol/L BUN 42 H (9-20) mg/dL POC Glucose (mg/dL) 101 H (75-99) mg/dL Calcium 7.3 L (8.4-10.2) mg/dL Phosphorus 2.1 L (2.5-4.5) mg/dL Microbiology - Last 24 Hours (Table) 11/30/18 12:53 Blood Culture - Final Blood No Growth after 144 hours
[2018-12-07] MEDS ORDERED: ACETAMINOPHEN IV (For NPO) 1,000 MG in EMPTY BAG 1 BAG IVPB PRN (10:57)
[2018-12-07] MEDS ORDERED: DILTIAZEM 125 MG in SODIUM CHLORIDE 0.9% 100 ML IV SCH (11:30)
[2018-12-07] MEDS ORDERED: FAT EMULSION 20% 250 ML IV SCH (12:00)
[2018-12-07] MEDS ORDERED: DEXTROSE 5% IN WATER 250 ML with AMIODARONE 300 MG IV ONE (12:06)
[2018-12-07 12:13] LABS: Glucose,Whole Blood 137 mg/dL (75-99)
--- NOTE | 2018-12-07 13:14 | P.PN ---
Subjective This is Yuilana Krishnamurthy PA-C dictating a progress note on this patient The patient was interviewed and examined by me as well as by Dr. Dubon Case discussed with Dr. Dubon and he agrees with the plan of care IMPRESSION / ASSESSMENT: New-onset atrial fibrillation with RVR, blood pressure stable, started on Cardizem Ischemic cardiomyopathy CAD status post stent placement Hypertension Dyslipidemia COPD Thrombocytopenia PLAN: Start amiodarone 300 mg IV over 2 hours and then continue with IV amiodarone drip Can continue Cardizem as long his blood pressure stable Given his thrombocytopenia, we cannot start heparin, start eliquis 2.5 twice a day for anticoagulation based on his age, weight, and kidney function Hold off on other cardiomyopathy medications including ACES and beta blockers for now to avoid hypotension HPI/interval history Patient is a 78-year-old male with a past medical history of ischemic cardiomyopathy who presented to the hospital with altered mental status. He was found to have a bowel obstruction and underwent exploratory laparotomy. Today he went into atrial fibrillation with RVR. There is no known history of A. fib that I can see in the chart. He was not on anticoagulation. Blood pressure stable. Cardizem has been started. Patient seen and examined, appears in no acute distress. EXAMINATION Temperature 99.3F, Heart rate 160, blood pressure 112/87, respirations 21, oxygen saturation 99% on 3 L nasal cannula On exam patient is lying in bed, in no acute distress Heart is irregularly irregular Lungs with bilateral rhonchi REVIEW OF LABS, ECG WBC 8.2, hemoglobin 13.2, platelets 60 Potassium 3.8, BUN 42, creatinine 0.98 Objective - Vital Signs Vital signs: Vital Signs Temp 99.3 F 12/07/18 09:00 Pulse 101 H 12/07/18 10:00 Resp 27 H 12/07/18 10:00 BP 107/84 12/07/18 07:00 Pulse Ox 98 12/07/18 10:00 Intake & Output 12/06/18 12/07/18 12/07/18 18:59 06:59 18:59 Intake Total 8802.372 8668.418 720 Output Total 1552 778 9408 Balance -102.971 686.418 -835 Weight 74.4 kg 74.4 kg Intake: IV 350 1380 495 Mvi, Adult No.4 with Vit 950 475 K 10 ml Trace (Conc-1Ml/ Dose) 1 ml Sodium Acetate 30 meq In Amino Acid 4. 25%-D10w 1,000 ml @ 95 mls/hr IV .BY DURATION [facility] Rx#:[id number] Sodium Chloride 0.9% 1, 250 230 20 000 ml @ 125 mls/hr IV . Q8H [facility] Rx#:[id number] metroNIDAZOLE-NS PMX 500 100 200 mg In Saline 1 100ml.bag @ 100 mls/hr IVPB Q8H [facility] Rx#:[id number] Intake, IV Titration 1272.029 101.418 225 Amount Mvi, Adult No.4 with Vit 550 50 K 10 ml Trace (Conc-1Ml/ Dose) 1 ml Sodium Acetate 30 meq Calcium Gluconate 1 gm In Amino Acid 4.25% -D10w 1,000 ml @ 50 mls/ hr IV .[id number] [facility] Rx#: [id number] Norepinephrine 4 mg In 222.029 1.418 Sodium Chloride 0.9% 250 ml @ 0.05 MCG/KG/MIN 12. 516 mls/hr IV .[id number] [facility] Rx#:[id number] Potassium Chloride 10 meq 100 In Water For Injection 1 100ml.bag @ 100 mls/hr IVPB Q1H [facility] Rx#: [id number] Potassium Phosphate 10 125 mmol In Sodium Chloride 0 .9% 250 ml @ 125 mls/hr IV ON[facility] Rx#:[id number] Sodium Chloride 0.9% 1, 500 50 000 ml @ 50 mls/hr IV . Q20H [facility] Rx#:[id number] Output: Gastric Drainage 200 Urine 6729 477 0547 Stool 50 Oral Regurgitation 200 Other: Voiding Method Diaper Indwelling Catheter Indwelling Catheter Incontinent # Voids 0 ABP, PAP, CO, CI - Last Documented Arterial Blood Pressure 105/87 - Labs CBC & Chem 7: 12/07/18 04:58 12/07/18 04:58 Labs: Abnormal Lab Results - Last 24 Hours (Table) 12/06/18 12/06/18 12/06/18 Range/Units 12:01 18:27 23:26 RBC (4.30-5.90) m/uL MCV (80.0-100.0) fL RDW (11.5-15.5) % Plt Count (150-450) k/uL Lymphocytes # (1.0-4.8) k/uL Chloride (98-107) mmol/L BUN (9-20) mg/dL POC Glucose (mg/dL) 125 H 125 H 115 H (75-99) mg/dL Calcium (8.4-10.2) mg/dL Phosphorus (2.5-4.5) mg/dL 12/07/18 12/07/18 12/07/18 Range/Units 04:58 04:58 05:35 RBC 3.93 L (4.30-5.90) m/uL MCV 101.5 H (80.0-100.0) fL RDW 16.7 H (11.5-15.5) % Plt Count 60 L (150-450) k/uL Lymphocytes # 0.5 L (1.0-4.8) k/uL Chloride 119 H (98-107) mmol/L BUN 42 H (9-20) mg/dL POC Glucose (mg/dL) 101 H (75-99) mg/dL Calcium 7.3 L (8.4-10.2) mg/dL Phosphorus 2.1 L (2.5-4.5) mg/dL Microbiology - Last 24 Hours (Table) 11/30/18 12:53 Blood Culture - Final Blood No Growth after 144 hours
[2018-12-07 14:03] LABS: Glucose,Whole Blood 136 mg/dL (75-99)
[2018-12-07] MEDS ORDERED: AMIODARONE 360 MG in DEXTROSE 5% IN WATER 200 ML IV ONE ×2 (14:15)
[2018-12-07] MEDS: APIXABAN 2.5 MG TABLET PO SCH (15:20)
--- NOTE | 2018-12-07 16:19 | P.PN ---
Subjective Progress Note Date: 12/07/18 Principal diagnosis: This is a 78-year-old male who is a history of multiple complex medical issues and was brought to the hospital by son for increasing confusion and unable to care for himself as he lives at home alone. When entering the room this morning patient was restless and twisting from side to side in bed with a patient sitter at the bedside. Patient was on 3 L of oxygen via nasal cannula with increase in respirations. Patient does not respond to questions and will not open his eyes at this time. Patient did have a brief on that shows some dried blood with some dried blood under the fingernails as patient has been itching and scratching at that area. Per patient sitter at the bedside, nursing staff attempted straight catheter with some blood noted. Urology is following this patient. Eugenia RAMOS was at the bedside from surgery and she stated from her standpoint there will be no surgical interventions at this time as his liver ultrasound showed some slud ge and large gallstones. Awaiting neurology consult at this time. Chest x-ray this morning shows that the heart is enlarged with an interstitial pattern with basilar subsegmental consolidation. Hypertrophic and degenerative changes. Ectasia of the aorta and suggested to correlate for interstitial pneumonitis or venous congestion, left basilar infiltrate, and suspect tiny bilateral pleural effusions. Patient does have a significant history of COPD and is currently on oxygen as mentioned above, but unsure if he uses home oxygen. 12/04/2018 Patient is lying in bed resting appears in no acute distress. Patient is arousable but still not answering appropriately. Patient is less anxious at this time. Per the safety support the bedside patient is still not eating. Patient has been getting up to use the bathroom to urinate and has been having blood in the urine. Awaiting urology at this time. Patient denies any shortness of breath, chest pain, or palpitations at this time. Patient is afebrile. PT and OT on board with the patient. GI is also following the patient closely. Will continue to monitor closely. 12/05/18 Patient was moved to the ICU after his emergent surgery was done of an exploratory laparotomy with partial colectomy and ileostomy placement of the right side due to a bowel obstruction and near perforation. Nephrology was consulted and following closely. Urology recommends no campos catheter placement due to his tight bladder neck contracture as he is urinating. Monitor for retention. Patient is still on a ventilator this morning and is currently on low pressors with Propofol for sedation. Family is at the bedside. Engineer [employer] was there as well and comforting the son at bedside. Guarded prognosis. Will monitor closely. Patient is lying in the bed comfortably in no apparent distress. 12/06/18 Patient is still in the ICU and ventilated at this time. Patient will be weaned off of the ventilator and pressors today per Dr. Sotelo and will be monitored closely. Patient has not been on any form of sedation except for Dilaudid PRN this morning. Levophed is currently at 2mcg. Patient is still urinating in a brief as he has no campos at this time. Urology is following. Ileostomy has a small amount of loose stool output. Abdominal dressing is intact with some shadowing noted on exam. Minimal NG output of 200cc since last night. Guarded prognosis. 12/07/2018 Patient is still currently in the ICU and has been extubated. NG tube is still in place with minimal output. Ileostomy is intact with some mildly formed stool noted. Patient does have a Campos catheter that was placed yesterday due to urinary retention. Urology is still following. Patient is hard of hearing but responds to name. Patient is still not talking very much but was making nodding gestures when asking questions. Patient actually gave a smile when talking to him today. Family was at the bedside. Patient denies any chest pain, shortness of breath, or palpitations at this time. Patient is still very lethargic but does respond when spoken loudly to. Per Dr. Sotelo patient is only to use nonnarcotic medications via IV for pain management due to his lethargy and unresponsiveness. We will continue to monitor closely. Prognosis is guarded. Objective - Vital Signs Vital signs: Vital Signs Temp 99.0 F 12/07/18 12:15 Pulse 112 H 12/07/18 15:00 Resp 17 12/07/18 15:00 BP 86/71 12/07/18 15:00 Pulse Ox 97 12/07/18 15:00 Intake & Output 12/06/18 12/07/18 12/07/18 18:59 06:59 18:59 Intake Total 7799.062 8229.418 1028.875 Output Total 5216 144 8012 Balance -102.971 686.418 -1046.125 Weight 74.4 kg 74.4 kg Intake: IV 350 1380 787.5 Diltiazem 125 mg In 7.5 Sodium Chloride 0.9% 100 ml @ 7.5 MG/HR 7.5 mls/hr IV .[id number] [facility] Rx#: [id number] Mvi, Adult No.4 with Vit 950 760 K 10 ml Trace (Conc-1Ml/ Dose) 1 ml Sodium Acetate 30 meq In Amino Acid 4. 25%-D10w 1,000 ml @ 95 mls/hr IV .BY DURATION [facility] Rx#:[id number] Sodium Chloride 0.9% 1, 250 230 20 000 ml @ 125 mls/hr IV . Q8H [facility] Rx#:[id number] metroNIDAZOLE-NS PMX 500 100 200 mg In Saline 1 100ml.bag @ 100 mls/hr IVPB Q8H [facility] Rx#:[id number] Intake, IV Titration 1272.029 101.418 241.375 Amount Diltiazem 125 mg In 16.375 Sodium Chloride 0.9% 100 ml @ 7.5 MG/HR 7.5 mls/hr IV .[id number] [facility] Rx#: [id number] Mvi, Adult No.4 with Vit 550 50 K 10 ml Trace (Conc-1Ml/ Dose) 1 ml Sodium Acetate 30 meq Calcium Gluconate 1 gm In Amino Acid 4.25% -D10w 1,000 ml @ 50 mls/ hr IV .[id number] [facility] Rx#: [id number] Norepinephrine 4 mg In 222.029 1.418 Sodium Chloride 0.9% 250 ml @ 0.05 MCG/KG/MIN 12. 516 mls/hr IV .[id number] [facility] Rx#:[id number] Potassium Chloride 10 meq 100 In Water For Injection 1 100ml.bag @ 100 mls/hr IVPB Q1H [facility] Rx#: [id number] Potassium Phosphate 10 125 mmol In Sodium Chloride 0 .9% 250 ml @ 125 mls/hr IV [facility] Rx#:[id number] Sodium Chloride 0.9% 1, 500 50 000 ml @ 50 mls/hr IV . Q20H [facility] Rx#:[id number] Output: Gastric Drainage 200 Urine 7572 742 5409 Stool 50 Oral Regurgitation 200 Other: Voiding Method Diaper Indwelling Catheter Indwelling Catheter Incontinent # Voids 0 ABP, PAP, CO, CI - Last Documented Arterial Blood Pressure 87/65 - Exam Gen: This is a 78 year old male who is lying in bed. Appears in no acute distress. Patient was extubated last night HEENT: Head is atraumatic, normocephalic. Pupils equal, round. Sclerae is anicteric. NG tube in place. NECK: Supple. No JVD. No lymphadenopathy. No thyromegaly. LUNGS: Clear to auscultation. No wheezes or rhonchi. No intercostal retractions. HEART: Regular rate and rhythm. No murmur. ABDOMEN: Soft. Bowel sounds are present. No masses. Ileostomy present with a small amount of brown semi-formed stool noted. Stoma is pink. EXTREMITIES: No pedal edema. No calf tenderness. Mild right upper extremity swelling. NEUROLOGICAL: Patient is alert and oriented to name. patient is very lethargic. - Labs CBC & Chem 7: 12/07/18 04:58 12/07/18 04:58 Labs: Abnormal Lab Results - Last 24 Hours (Table) 12/06/18 12/06/18 12/07/18 Range/Units 18:27 23:26 04:58 RBC 3.93 L (4.30-5.90) m/uL MCV 101.5 H (80.0-100.0) fL RDW 16.7 H (11.5-15.5) % Plt Count 60 L (150-450) k/uL Lymphocytes # 0.5 L (1.0-4.8) k/uL Chloride (98-107) mmol/L BUN (9-20) mg/dL POC Glucose (mg/dL) 125 H 115 H (75-99) mg/dL Calcium (8.4-10.2) mg/dL Phosphorus (2.5-4.5) mg/dL 12/07/18 12/07/18 12/07/18 Range/Units 04:58 05:35 12:01 RBC (4.30-5.90) m/uL MCV (80.0-100.0) fL RDW (11.5-15.5) % Plt Count (150-450) k/uL Lymphocytes # (1.0-4.8) k/uL Chloride 119 H (98-107) mmol/L BUN 42 H (9-20) mg/dL POC Glucose (mg/dL) 101 H 137 H (75-99) mg/dL Calcium 7.3 L (8.4-10.2) mg/dL Phosphorus 2.1 L (2.5-4.5) mg/dL 12/07/18 Range/Units 13:51 RBC (4.30-5.90) m/uL MCV (80.0-100.0) fL RDW (11.5-15.5) % Plt Count (150-450) k/uL Lymphocytes # (1.0-4.8) k/uL Chloride (98-107) mmol/L BUN (9-20) mg/dL POC Glucose (mg/dL) 136 H (75-99) mg/dL Calcium (8.4-10.2) mg/dL Phosphorus (2.5-4.5) mg/dL Microbiology - Last 24 Hours (Table) 11/30/18 12:53 Blood Culture - Final Blood No Growth after 144 hours Assessment and Plan Assessment: Altered mental status, possible metabolic encephalopathy secondary to many problems including urinary bladder and gallbladder disease Generalized weakness and lethargy with confusion likely due to dehydration and volume depletion, currently intubated s/p laparotomy with partial colectomy and ileostomy placement. Elevated troponin levels. Due to demand ischemia/type II [place] Gallbladder disease, possible acute cholecystitis. Gallstones and sludge noted on ultrasound. GI is still following closely Urinary retention. Patient is urinating with a Campos catheter and is clear and yellow in nature. Patient was retaining last night. Urology is following. bladder neck contracture to be addressed at a later date s/p recovery from bowel surgery. Hyperbilirubinemia and elevated alk phos level Lactic acidosis secondary to decreased tissue perfusion Coronary artery disease history of stent placement Acute kidney injury. Current BUN is 42, CR is 0.98. IV hydration of .9NS is still at 50ml/hr. Will continue to monitor. History of TURP History of DVT History of GERD Hearing disorder Hypertension Hyperlipidemia History of [place] Asthma/COPD Nicotine addiction/per son every day smoker currently continue DVT prophylaxis with Eliquis as platelets are low and heparin subq is being discontinued. Platelet count is 60. Ischemic bowel s/p exploratory laparotomy with subtotal colectomy and right side ileostomy placement. Recommendations and discussion: recommended to continue current medications and continue symptomatic treatment. will continue to monitor closely. Will monitor closely the labs and vital signs. prognosis is guarded. Further recommendations to follow.
[2018-12-07] MEDS: NOREPINEPHRINE 4 MG in SODIUM CHLORIDE 0.9% 250 ML IV SCH (18:15)
[2018-12-07] MEDS: LEVOFLOXACIN 250MG-D5W PMX 250 MG in DEXTROSE/WATER 1 50ML.BAG IVPB SCH (18:30)
[2018-12-07 18:39] LABS: Glucose,Whole Blood 135 mg/dL (75-99)
[2018-12-07] MEDS: AMIODARONE 300 MG in DEXTROSE 5% IN WATER 250 ML IV SCH ×2 (21:01)
[2018-12-08 01:06] LABS: Glucose,Whole Blood 94 mg/dL (75-99)
[2018-12-08] MEDS: APIXABAN 2.5 MG TABLET PO SCH ×2 (01:20→09:31)
[2018-12-08] MEDS: INSULIN ASPART (NovoLOG) 100 UNIT/ML VIAL SQ SCH ×3 (01:22→11:55)
[2018-12-08] MEDS: SODIUM CHLORIDE 0.9% 1,000 ML IV SCH (01:23)
[2018-12-08] MEDS: metroNIDAZOLE-NS PMX 500 MG in SALINE 1 100ML.BAG IVPB SCH ×2 (03:16→11:47)
[2018-12-08] MEDS ORDERED: DEXTROSE 5% IN WATER 100 ML with AMIODARONE 150 MG IV ONE (03:31)
[2018-12-08] MEDS: AMIODARONE 300 MG in DEXTROSE 5% IN WATER 250 ML IV SCH ×2 (06:15)
[2018-12-08 06:24] LABS: Glucose,Whole Blood 118 mg/dL (75-99)
--- NOTE | 2018-12-08 06:49 | XR ---
EXAMINATION TYPE: XR chest 1V portable DATE OF EXAM: 12/08/2018 HISTORY: Tube placement. REFERENCE: Previous study dated 12/07/2018. FINDINGS: The heart is enlarged. The patient is NG tube is been removed. There is worsening right bas ilar airspace disease. There is a small right effusion. There is increased density behind the heart. Pulmonary vasculature appears normal. IMPRESSION: 1. MULTICHAMBER CARDIAC ENLARGEMENT. 2. BIBASILAR AIRSPACE DISEASE. 3. SMALL RIGHT EFFUSION.
[2018-12-08] MEDS: IPRATROPIUM-ALBUTEROL 3 ML NEB INHALATION SCH ×3 (07:14→11:05)
[2018-12-08 09:12] LABS: Calcium 7.5 mg/dL (8.4-10.2); Phosphorus 2.4 mg/dL (2.5-4.5)
[2018-12-08 09:16] LABS: Magnesium 2.1 mg/dL (1.6-2.3); Potassium 4.3 mmol/L (3.5-5.1)
--- NOTE | 2018-12-08 09:16 | P.PN ---
Subjective Patient is seen in follow-up for acute kidney injury on chronic kidney disease. Patient is chronic kidney disease stage III. His baseline creatinine has been in the range of 1.3-1.5. Creatinine peaked at 2.0 this admission and was down to 0.98 as of yesterday. Patient was extubated on December 06. He is maintained on PPN. Appears lethargic. Currently on amiodarone drip for A. fib with RVR. Vital signs are stable. General: The patient appeared well nourished and normally developed. HEENT: Head exam is unremarkable. Neck is without jugular venous distension. LUNGS: Breath sounds decreased. HEART: Irregular rate and rhythm. ABDOMEN: Bowel sounds decreased. Ileostomy noted. EXTREMITITES: No clubbing, cyanosis, or edema. Objective - Vital Signs Vital signs: Vital Signs Temp 99.7 F H 12/08/18 08:00 Pulse 163 H 12/08/18 08:00 Resp 37 H 12/08/18 08:00 BP 103/88 12/08/18 08:00 Pulse Ox 100 12/08/18 08:00 Intake & Output 12/07/18 12/08/18 12/08/18 18:59 06:59 18:59 Intake Total 6729.411 2529.958 220 Output Total 2215 252 50 Balance -912.723 7071.958 170 Weight 74.4 kg Intake: IV 1422.5 1472 220 Dextrose 5% in Water 100 100 ml @ 618 mls/hr IV .Q10M ONE with Amiodarone 150 mg Rx#:[id number] Dextrose 5% in Water 250 250 ml @ 128 mls/hr IV .Q2H ONE with Amiodarone 300 mg Rx#:[id number] Diltiazem 125 mg In 7.5 Sodium Chloride 0.9% 100 ml @ 7.5 MG/HR 7.5 mls/hr IV .[id number] [facility] Rx#: [id number] Fat Emulsion 20% 250 ml @ 147 0 20.833 mls/hr IV MoWeFr [facility] Rx#:[id number] Levofloxacin 250Mg-D5w 100 Pmx 250 mg In Dextrose/ Water 1 50ml.bag @ 50 mls /hr IVPB Q24H [facility] Rx#: [id number] Mvi, Adult No.4 with Vit 480 120 K 10 ml Trace (Conc-1Ml/ Dose) 1 ml Sodium Acetate 30 meq In Amino Acid 4. 25%-D10w 1,000 ml @ 60 mls/hr IV .BY DURATION [facility] Rx#:[id number] Mvi, Adult No.4 with Vit 1045 95 K 10 ml Trace (Conc-1Ml/ Dose) 1 ml Sodium Acetate 30 meq In Amino Acid 4. 25%-D10w 1,000 ml @ 95 mls/hr IV .BY DURATION [facility] Rx#:[id number] Sodium Chloride 0.9% 1, 20 000 ml @ 125 mls/hr IV . Q8H [facility] Rx#:[id number] Sodium Chloride 0.9% 1, 550 100 000 ml @ 50 mls/hr IV . Q20H [facility] Rx#:[id number] metroNIDAZOLE-NS PMX 500 100 mg In Saline 1 100ml.bag @ 100 mls/hr IVPB Q8H [facility] Rx#:[id number] Intake, IV Titration 241.375 507.958 Amount Amiodarone 300 mg In 230.833 Dextrose 5% in Water 250 ml @ 0.5 MG/MIN 25 mls/hr IV .Q10H [facility] Rx#: [id number] Amiodarone 360 mg In 33.3 Dextrose 5% in Water 200 ml @ 1 MG/MIN 33.333 mls/ hr IV .Q6H [facility] Rx#: [id number] Diltiazem 125 mg In 16.375 Sodium Chloride 0.9% 100 ml @ 7.5 MG/HR 7.5 mls/hr IV .[id number] [facility] Rx#: [id number] Norepinephrine 4 mg In 243.825 Sodium Chloride 0.9% 250 ml @ 0.05 MCG/KG/MIN 14. 173 mls/hr IV .[id number] [facility] Rx#:[id number] Potassium Chloride 10 meq 100 In Water For Injection 1 100ml.bag @ 100 mls/hr IVPB Q1H [facility] Rx#: [id number] Potassium Phosphate 10 125 mmol In Sodium Chloride 0 .9% 250 ml @ 125 mls/hr IV ONCE ONE Rx#:[id number] Output: Urine 2015 252 50 Oral Regurgitation 200 Other: Voiding Method Indwelling Catheter Indwelling Catheter ABP, PAP, CO, CI - Last Documented Arterial Blood Pressure 89/72 - Labs CBC & Chem 7: 07/19/19 04:58 12/07/18 15:46 Labs: Abnormal Lab Results - Last 24 Hours (Table) 12/07/18 12/07/18 12/07/18 Range/Units 12:01 13:51 18:28 POC Glucose (mg/dL) 137 H 136 H 135 H (75-99) mg/dL 12/08/18 Range/Units 06:12 POC Glucose (mg/dL) 118 H (75-99) mg/dL Assessment and Plan Plan: Assessment: 1. Acute kidney injury mostly prerenal secondary to hypotension. Creatinine peaked at 2.0 to this admission and was down to 0.98 today. Kidneys are small in size but no evidence of hydronephrosis. 2. Chronic kidney disease stage III. Baseline creatinine in the range of 1.3- 1.5 most likely secondary to nephrosclerosis. 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 3. 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 Zavala catheter placed December 06. Urology following. 4. Metabolic acidosis secondary to acute kidney injury and IV fluids. Also component of lactic acidosis which is due to hypotension. Better. 5. Mild hyperkalemia secondary to metabolic acidosis and acute kidney injury. Better. 6. 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 7. Systolic CHF with ejection fraction of less than 20% from echocardiogram done in March 2017. 8. Bladder mass. This will need to be further worked up by urology. 9. Volume overload. S/p IV lasix 12/07. 10. A. fib with RVR maintained on amiodarone drip. Also on anticoagulation. Plan: Maintain PPN. Continue to monitor renal function and urine output. Morning labs pending.
[2018-12-08] MEDS: CLOPIDOGREL 75 MG TAB PO SCH (09:31)
[2018-12-08] MEDS: PANTOPRAZOLE 40 MG/10 ML VIAL IV SCH (09:31)
--- NOTE | 2018-12-08 09:49 | PN ---
PROGRESS NOTE Critical care time is 35 minutes. This is a 78-year-old male who is postop day #4 status post exploratory laparotomy, partial colectomy and right-sided colostomy for bowel obstruction and perforation. The patient was extubated a couple days ago. He was doing better yesterday but through the night, has really taken a turn for the worse. He has developed atrial fibrillation with rapid ventricular response. He was initially started on Cardizem IV by myself at 7.5 mg an hour. Subsequent to this, cardiology was evaluating him and put him on amiodarone at 0.5 mg/minute. In addition, because of his atrial fibrillation RVR, he has become hypotensive and is now on norepinephrine at 5 mcg/minute. He is getting saline at 40 mL an hour and TPN at 60 mL an hour. Apparently, the nurse did talk to the family yesterday and he was made a DO NOT RESUSCITATE. The patient's mental status is poor. He is poorly responsive. His condition has worsened. The surgery was done by Dr. Terry Gilman. He did pull out his NG tube last night and the nurses were not able to put another 1 down. Since he has had surgery, he has not had anything by mouth according to the surgeon. Again, the patient's mental status is very poor and he does not give any indication in terms of how he is feeling or doing. The nurses are in contact with family members. Current vital signs are reviewed. Temperature 99.7, heart rate 163, respiratory rate is anywhere between mid 20s to mid 30s, blood pressure 103/88, mean 93, and saturations are 100% on 3 L nasal cannula. He is quite tachypneic. In fact, his breathing pattern is consistent with Biot's breathing. The patient is very lethargic and sleepy. Does not appropriately respond. HEENT examination is grossly unremarkable. Nasal O2 noted. Neck is supple. No neck vein distention. No adenopathy. CARDIOVASCULAR examination reveals a regular rhythm and rate. Heart rates all over the place as low as 120 up to 160. It is consistent with atrial fibrillation. LUNGS: Reveal coarse rhonchi. Breath sounds are diminished. He does not take deep breaths. ABDOMEN is soft. A right-sided colostomy is noted. Bowel sounds are noted. EXTREMITIES are intact. Mild edema. SKIN: Without rash. NEUROLOGIC examination is very difficult to assess. He does move all 4 extremities. He is not particularly alert or oriented at this time. CHEST X-RAY: Shows bilateral infiltrates, right greater than left. There is a pneumoperitoneum from his recent surgery. There is cardiomegaly. LABS: Reviewed. For some reason, there was no labs from today as yet. Likely there are still pending. Microbiologic studies are thus far negative. Medications are reviewed. In addition to what was previously mentioned, his other medications are reviewed. In terms of antibiotics, he is on Levaquin and Flagyl. He is getting updraft treatments. ASSESSMENT: 1. Postoperative day #4 status post exploratory laparotomy with partial colectomy and right-sided colostomy for bowel obstruction/perforation. 2. New onset atrial fibrillation with rapid ventricular response, currently on amiodarone. 3. History of chronic obstructive pulmonary disease, seemingly inactive. 4. History of right lower lobe pulmonary nodule, to be evaluated further as an outpatient. 5. Routine postoperative ventilator management, resolved. 6. Mental status changes, secondary to metabolic encephalopathy, previously improved. 7. Recent asymptomatic coronary artery disease. 8. History of cardiomyopathy with left ventricular ejection fraction of 20%. 9. History of deep venous thrombosis. 10.Gastroesophageal reflux disease. 11.Deafness. 12.Gallstones and gallbladder sludge on ultrasound. PLAN: The patient's condition clearly has worsened. He has become hypotensive in large part related to his atrial fibrillation and RVR. He is now on norepinephrine and amiodarone. Cardizem has been discontinued. The nurses did talk to family members. We were able to get a DNR status on him. It might be appropriate at this time to consider palliative care or hospice. Additional recommendations and suggestions are forthcoming. The patient's mental status is very poor. He remains on TPN, saline IV, norepinephrine and amiodarone. We will continue to follow. Critical care time 35 minutes. MMODL / IJN: [id number] /
--- NOTE | 2018-12-08 10:25 | P.PN ---
Subjective Progress Note Date: 12/08/18 Principal diagnosis: Ischemic colon This a 78-year-old male who underwent subtotal colectomy. The patient was diagnosis ischemic colon. Patient apparently was made DO NOT RESUSCITATE. The patient may be made hospice today. He has a very low cardiac ejection fraction. Objective - Vital Signs Vital signs: Vital Signs Temp 99.7 F H 12/08/18 08:00 Pulse 156 H 12/08/18 09:00 Resp 40 H 12/08/18 09:00 BP 94/80 12/08/18 09:00 Pulse Ox 100 12/08/18 09:00 Intake & Output 12/07/18 12/08/18 12/08/18 18:59 06:59 18:59 Intake Total 9849.209 4718.958 330 Output Total 2215 252 70 Balance -271.952 2814.958 260 Weight 74.4 kg Intake: IV 1422.5 1472 330 Dextrose 5% in Water 100 100 ml @ 618 mls/hr IV .Q10M ONE with Amiodarone 150 mg Rx#:[id number] Dextrose 5% in Water 250 250 ml @ 128 mls/hr IV .Q2H ONE with Amiodarone 300 mg Rx#:[id number] Diltiazem 125 mg In 7.5 Sodium Chloride 0.9% 100 ml @ 7.5 MG/HR 7.5 mls/hr IV .[id number] [facility] Rx#: [id number] Fat Emulsion 20% 250 ml @ 147 0 20.833 mls/hr IV MoWeFr [facility] Rx#:[id number] Levofloxacin 250Mg-D5w 100 Pmx 250 mg In Dextrose/ Water 1 50ml.bag @ 50 mls /hr IVPB Q24H [facility] Rx#: [id number] Mvi, Adult No.4 with Vit 480 180 K 10 ml Trace (Conc-1Ml/ Dose) 1 ml Sodium Acetate 30 meq In Amino Acid 4. 25%-D10w 1,000 ml @ 60 mls/hr IV .BY DURATION [facility] Rx#:[id number] Mvi, Adult No.4 with Vit 1045 95 K 10 ml Trace (Conc-1Ml/ Dose) 1 ml Sodium Acetate 30 meq In Amino Acid 4. 25%-D10w 1,000 ml @ 95 mls/hr IV .BY DURATION [facility] Rx#:[id number] Sodium Chloride 0.9% 1, 20 000 ml @ 125 mls/hr IV . Q8H [facility] Rx#:[id number] Sodium Chloride 0.9% 1, 550 150 000 ml @ 50 mls/hr IV . Q20H [facility] Rx#:[id number] metroNIDAZOLE-NS PMX 500 100 mg In Saline 1 100ml.bag @ 100 mls/hr IVPB Q8H [facility] Rx#:[id number] Intake, IV Titration 241.375 507.958 Amount Amiodarone 300 mg In 230.833 Dextrose 5% in Water 250 ml @ 0.5 MG/MIN 25 mls/hr IV .Q10H [facility] Rx#: [id number] Amiodarone 360 mg In 33.3 Dextrose 5% in Water 200 ml @ 1 MG/MIN 33.333 mls/ hr IV .Q6H [facility] Rx#: [id number] Diltiazem 125 mg In 16.375 Sodium Chloride 0.9% 100 ml @ 7.5 MG/HR 7.5 mls/hr IV .[id number] [facility] Rx#: [id number] Norepinephrine 4 mg In 243.825 Sodium Chloride 0.9% 250 ml @ 0.05 MCG/KG/MIN 14. 173 mls/hr IV .[id number] [facility] Rx#:[id number] Potassium Chloride 10 meq 100 In Water For Injection 1 100ml.bag @ 100 mls/hr IVPB Q1H [facility] Rx#: [id number] Potassium Phosphate 10 125 mmol In Sodium Chloride 0 .9% 250 ml @ 125 mls/hr IV ONCE ONE Rx#:[id number] Output: Urine 2015 252 70 Oral Regurgitation 200 Other: Voiding Method Indwelling Catheter Indwelling Catheter ABP, PAP, CO, CI - Last Documented Arterial Blood Pressure 89/72 - Constitutional General appearance: Present: mild distress - Gastrointestinal Gastrointestinal Comment(s): Abdomen soft. Stoma site is pink. There is some stool in the stoma. - Labs CBC & Chem 7: 12/07/18 04:58 12/08/18 07:02 Labs: Abnormal Lab Results - Last 24 Hours (Table) 12/07/18 12/07/18 12/07/18 Range/Units 12:01 13:51 18:28 Chloride (98-107) mmol/L Carbon Dioxide (22-30) mmol/L BUN (9-20) mg/dL Glucose (74-99) mg/dL POC Glucose (mg/dL) 137 H 136 H 135 H (75-99) mg/dL Calcium (8.4-10.2) mg/dL Phosphorus (2.5-4.5) mg/dL 12/08/18 12/08/18 Range/Units 06:12 07:02 Chloride 118 H (98-107) mmol/L Carbon Dioxide 16 L (22-30) mmol/L BUN 41 H (9-20) mg/dL Glucose 124 H (74-99) mg/dL POC Glucose (mg/dL) 118 H (75-99) mg/dL Calcium 7.5 L (8.4-10.2) mg/dL Phosphorus 2.4 L (2.5-4.5) mg/dL Assessment and Plan Assessment: Status post subtotal colectomy for ischemic colon. Patient may be made hospice today. He will receive Dilaudid for pain control.
[2018-12-08] MEDS: HYDROmorphone 0.5 MG/0.5 ML SYRINGE IVP PRN ×2 (10:28→14:47)
[2018-12-08 12:05] LABS: Glucose,Whole Blood 133 mg/dL (75-99)
[2018-12-08 12:24] VITALS: TEMP 97.8
[2018-12-08] MEDS ORDERED: MORPHINE SULFATE 2 MG/ML SYRINGE IV PRN (14:37)
[2018-12-08] MEDS ORDERED: MORPHINE SULFATE 4 MG/ML SYRINGE IVP ONE (14:37)
[2018-12-08] MEDS ORDERED: LORazepam 2 MG/ML INJ IV PRN (14:37)
[2018-12-08] MEDS ORDERED: SCOPOLAMINE 1.5MG/72HR PATCH TRANSDERM SCH (15:00)
--- NOTE | 2018-12-08 15:13 | P.PN ---
Subjective 78-year-old male who is a history of multiple complex medical issues and was brought to the hospital by son for increasing confusion and unable to care for himself as he lives at home alone. When entering the room this morning patient was restless and twisting from side to side in bed with a patient sitter at the bedside. Patient was on 3 L of oxygen via nasal cannula with increase in respirations. Patient does not respond to questions and will not open his eyes at this time. Patient did have a brief on that shows some dried blood with some dried blood under the fingernails as patient has been itching and scratching at that area. Per patient sitter at the bedside, nursing staff attempted straight catheter with some blood noted. Urology is following this patient. Eugenia RAMOS was at the bedside from surgery and she stated from her standpoint there will be no surgical interventions at this time as his liver ultrasound showed some sl udge and large gallstones. Awaiting neurology consult at this time. Chest x- ray this morning shows that the heart is enlarged with an interstitial pattern with basilar subsegmental consolidation. Hypertrophic and degenerative changes. Ectasia of the aorta and suggested to correlate for interstitial pneumonitis or venous congestion, left basilar infiltrate, and suspect tiny bilateral pleural effusions. Patient does have a significant history of COPD and is currently on oxygen as mentioned above, but unsure if he uses home oxygen. 12/04/2018 Patient is lying in bed resting appears in no acute distress. Patient is arousable but still not answering appropriately. Patient is less anxious at this time. Per the safety support the bedside patient is still not eating. Patient has been getting up to use the bathroom to urinate and has been having blood in the urine. Awaiting urology at this time. Patient denies any shortness of breath, chest pain, or palpitations at this time. Patient is afebrile. PT and OT on board with the patient. GI is also following the patient closely. Will continue to monitor closely. 12/05/18 Patient was moved to the ICU after his emergent surgery was done of an exploratory laparotomy with partial colectomy and ileostomy placement of the right side due to a bowel obstruction and near perforation. Nephrology was consulted and following closely. Urology recommends no campos catheter placement due to his tight bladder neck contracture as he is urinating. Monitor for retention. Patient is still on a ventilator this morning and is currently on low pressors with Propofol for sedation. Family is at the bedside. Boom Operator was there as well and comforting the son at bedside. Guarded prognosis. Will monitor closely. Patient is lying in the bed comfortably in no apparent distress. 12/06/18 Patient is still in the ICU and ventilated at this time. Patient will be weaned off of the ventilator and pressors today per Dr. Sotelo and will be monitored cl osely. Patient has not been on any form of sedation except for Dilaudid PRN this morning. Levophed is currently at 2mcg. Patient is still urinating in a brief as he has no campos at this time. Urology is following. Ileostomy has a small amount of loose stool output. Abdominal dressing is intact with some shadowing noted on exam. Minimal NG output of 200cc since last night. Guarded prognosis. 12/07/2018 Patient is still currently in the ICU and has been extubated. NG tube is still in place with minimal output. Ileostomy is intact with some mildly formed stool noted. Patient does have a Campos catheter that was placed yesterday due to urinary retention. Urology is still following. Patient is hard of hearing but responds to name. Patient is still not talking very much but was making nodding gestures when asking questions. Patient actually gave a smile when talking to him today. Family was at the bedside. Patient denies any chest pain, shortness of breath, or palpitations at this time. Patient is still very lethargic but does respond when spoken loudly to. Per Dr. Sotelo patient is only to use nonnarcotic medications via IV for pain management due to his lethargy and unresponsiveness. We will continue to monitor closely. Prognosis is guarded. 12/08/2018 Patient overall clinical condition has worsened patient is never really quite a vague patient cannot make any decision at this time patient the family is being called and the more appropriate management is hospice for him considering that patient came in completely attended later found to have bowel perforation, un known baseline functionality, underwent laparotomy subsequent extubation followed with atrial fibrillation. Patient's clinical condition is worsened patient is acidotic for most probably has lactic acidosis is in A. fib with increased heart rate. With aggressive measures since his admission patient's overall clinical condition never before has gotten better patient has extremely poor ejection fraction of 20% is extremely low chance that the patient will regain reading reasonable functionality because of which hospice is more appropriate and hospice consulted. And will discuss with the family members. All inpatient medications were reviewed and appropriate changes in these medications as dictated in the interval history and assessment and plan. Objective - Vital Signs Vital signs: Vital Signs Temp 97.8 F 12/08/18 12:00 Pulse 149 H 12/08/18 14:00 Resp 24 12/08/18 14:00 BP 108/63 12/08/18 14:00 Pulse Ox 100 12/08/18 14:00 Intake & Output 12/07/18 12/08/18 12/08/18 18:59 06:59 18:59 Intake Total 2292.208 7328.958 850 Output Total 2215 252 198 Balance -432.907 1406.958 652 Weight 74.4 kg Intake: IV 1422.5 1472 850 Dextrose 5% in Water 100 100 ml @ 618 mls/hr IV .Q10M ONE with Amiodarone 150 mg Rx#:[id number] Dextrose 5% in Water 250 250 ml @ 128 mls/hr IV .Q2H [facility] with Amiodarone 300 mg Rx#:[id number] Diltiazem 125 mg In 7.5 Sodium Chloride 0.9% 100 ml @ 7.5 MG/HR 7.5 mls/hr IV .[id number] [facility] Rx#: [id number] Fat Emulsion 20% 250 ml @ 147 0 20.833 mls/hr IV MoWeFr [facility] Rx#:[id number] Levofloxacin 250Mg-D5w 100 Pmx 250 mg In Dextrose/ Water 1 50ml.bag @ 50 mls /hr IVPB Q24H [facility] Rx#: [id number] Mvi, Adult No.4 with Vit 480 360 K 10 ml Trace (Conc-1Ml/ Dose) 1 ml Sodium Acetate 30 meq In Amino Acid 4. 25%-D10w 1,000 ml @ 60 mls/hr IV .BY DURATION [facility] Rx#:[id number] Mvi, Adult No.4 with Vit 1045 95 K 10 ml Trace (Conc-1Ml/ Dose) 1 ml Sodium Acetate 30 meq In Amino Acid 4. 25%-D10w 1,000 ml @ 95 mls/hr IV .BY DURATION [facility] Rx#:[id number] Sodium Chloride 0.9% 1, 20 000 ml @ 125 mls/hr IV . Q8H [facility] Rx#:[id number] Sodium Chloride 0.9% 1, 550 390 000 ml @ 50 mls/hr IV . Q20H [facility] Rx#:[id number] metroNIDAZOLE-NS PMX 500 100 100 mg In Saline 1 100ml.bag @ 100 mls/hr IVPB Q8H [facility] Rx#:[id number] Intake, IV Titration 241.375 507.958 Amount Amiodarone 300 mg In 230.833 Dextrose 5% in Water 250 ml @ 0.5 MG/MIN 25 mls/hr IV .Q10H [facility] Rx#: [id number] Amiodarone 360 mg In 33.3 Dextrose 5% in Water 200 ml @ 1 MG/MIN 33.333 mls/ hr IV .Q6H [facility] Rx#: [id number] Diltiazem 125 mg In 16.375 Sodium Chloride 0.9% 100 ml @ 7.5 MG/HR 7.5 mls/hr IV .[id number] [facility] Rx#: [id number] Norepinephrine 4 mg In 243.825 Sodium Chloride 0.9% 250 ml @ 0.05 MCG/KG/MIN 14. 173 mls/hr IV .[id number] [facility] Rx#:[id number] Potassium Chloride 10 meq 100 In Water For Injection 1 100ml.bag @ 100 mls/hr IVPB Q1H [facility] Rx#: [id number] Potassium Phosphate 10 125 mmol In Sodium Chloride 0 .9% 250 ml @ 125 mls/hr IV ONCE [facility] Rx#:[id number] Output: Urine 2015 252 98 Stool 100 Oral Regurgitation 200 Other: Voiding Method Indwelling Catheter Indwelling Catheter Indwelling Catheter ABP, PAP, CO, CI - Last Documented Arterial Blood Pressure 89/72 - Exam Gen: This is a 78 year old male who is lying in bed. To Make probably due to lactic acidosis doesn't look well HEENT: Head is atraumatic, normocephalic. Pupils equal, round. Sclerae is anicteric. NG tube in place. NECK: Supple. No JVD. No lymphadenopathy. No thyromegaly. LUNGS: Clear to auscultation. No wheezes or rhonchi. No intercostal retractions. HEART: . No murmur. Tachycardic with irregularly irregular rhythm ABDOMEN: Soft. Bowel sounds are present. No masses. Ileostomy present with a small amount of brown semi-formed stool noted. Stoma is pink. EXTREMITIES: No pedal edema. No calf tenderness. Mild right upper extremity swelling. NEUROLOGICAL: Patient is alert and oriented to name. patient is very lethargic. - Labs CBC & Chem 7: 12/07/18 04:58 12/08/18 07:02 Labs: Abnormal Lab Results - Last 24 Hours (Table) 12/07/18 12/08/18 12/08/18 Range/Units 18:28 06:12 07:02 Chloride 118 H (98-107) mmol/L Carbon Dioxide 16 L (22-30) mmol/L BUN 41 H (9-20) mg/dL Glucose 124 H (74-99) mg/dL POC Glucose (mg/dL) 135 H 118 H (75-99) mg/dL Calcium 7.5 L (8.4-10.2) mg/dL Phosphorus 2.4 L (2.5-4.5) mg/dL 12/08/18 Range/Units 11:53 Chloride (98-107) mmol/L Carbon Dioxide (22-30) mmol/L BUN (9-20) mg/dL Glucose (74-99) mg/dL POC Glucose (mg/dL) 133 H (75-99) mg/dL Calcium (8.4-10.2) mg/dL Phosphorus (2.5-4.5) mg/dL Assessment and Plan Plan: Bowel perforation status post laparotomy. Status post extubation couple days ago Altered mental status, possible metabolic encephalopathy metabolic and toxic due to above-mentioned medical problems Lactic acidosis, both anion gap and non-anion gap metabolic acidosis secondary to lactic acidosis and hypochloremia retrospectively Elevated troponin levels. Due to demand ischemia/type II NH Gallbladder disease, possible acute cholecystitis. Gallstones and sludge noted on ultrasound. GI is still following closely Urinary retention. Patient is urinating with a Campos catheter and is clear and yellow in nature. Patient was retaining last night. Urology is following. bladder neck contracture to be addressed at a later date s/p recovery from bowel surgery. Hyperbilirubinemia and elevated alk phos level Coronary artery disease history of stent placement Acute kidney injury Congestive heart failure chronic systolic dysfunction ejection fraction of 20% -Atrial fibrillation presently rate is not well controlled patient is an Eliquis Hypertension Hyperlipidemia Asthma/COPD Nicotine addiction/per son every day smoker currently
[2018-12-08] MEDS: MORPHINE SULFATE 100 MG in SODIUM CHLORIDE 0.9% 90 ML IV SCH ×2 (15:25→22:43)
[2018-12-08] MEDS: [UNRECOGNIZED DRUG - REMARK] IV SCH ×4 (16:39)
[2018-12-08] MEDS: NOREPINEPHRINE 4 MG in SODIUM CHLORIDE 0.9% 250 ML IV SCH (16:39)
[2018-12-08 21:05] VITALS: RESP 6
[2018-12-08 22:03] VITALS: BP 83/70; PULSE 151
--- NOTE | 2018-12-12 16:38 | CDI ---
Documentation Clarification Form Date: 12/12/18 From: Annette Cooper Phone: If you have a question regarding this query, please contact Garima Mauro at [phone] between 8am and 5pm. Admit Date: 12/02/2018 9:43:00 AM Patient Name: Brandon Jj Visit Number: [id number] Discharge Date: 12/09/2018 12:00:00 AM ATTENTION: The Clinical Documentation Specialists (CDI) and [facility] Coding Staff appreciate your assistance in clarifying documentation. Please respond to the clarification below the line at the bottom and electronically sign. The CDI & [facility] Coding staff will review the response and follow-up if needed. Please note: Queries are made part of the Legal Health Record. If you have any questions, please contact the author of this message via ITS. Dr. Raheel Dubon New onset atrial fibrillation is documented in the 12/07 and 12/08 progress notes History/Risk Factors: Hypertension, CAD and CHF. Clinical Indicators: Heart rate 120 to 160 Treatment: Amiodarone IV, Cardizem In your professional opinion, can you please clarify the type of Atrial Fibrillation, if known? Chronic/Permanent Paroxysmal Persistent Other, please specify Unable to determine paroxysmal MTDD
--- NOTE | 2018-12-12 17:05 | CDI ---
Documentation Clarification Form Date: 12/28/18 From: Annette Cooper Phone: If you have a question regarding this query, please contact Garima Mauro at [phone] between 8am and 5pm. Admit Date: 12/02/2018 9:43:00 AM Patient Name: Brandon Jj Visit Number: [id number] Discharge Date: 12/09/2018 12:00:00 AM ATTENTION: The Clinical Documentation Specialists (CDI) and [facility] Coding Staff appreciate your assistance in clarifying documentation. Please respond to the clarification below the line at the bottom and electronically sign. The CDI & [facility] Coding staff will review the response and follow-up if needed. Please note: Queries are made part of the Legal Health Record. If you have any questions, please contact the author of this message via ITS. Dr. 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 History/Risk Factors: 78 yo male with a history of CAD, CHF and hyperlipidemia. Clinical Indicators: Right sided abdominal pain. Radiology findings: Abd X-ray: Distended loops of small and large bowel. No evident pneumoperitoneum. CT Abd/Pelv: Stomach distended. Jejunum and ileum prominently dilated. LUQ gas bubbles may represent pneumatosis. Vital Signs: T. 97.5, P. 104, R. 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 In your professional opinion, can you please clarify the acuity of the ischemic bowel? Acute Chronic Other, please specify Unable to determine Acute MTDD
--- NOTE | 2018-12-12 17:16 | CDI ---
Documentation Clarification Form Date: 12/28/18 From: Annette Cooper/Francisco J Phone: If you have a question regarding this query, please contact Garima Mauro at [phone] between 8am and 5pm. Admit Date: 12/02/2018 9:43:00 AM Patient Name: Brandon Jj Visit Number: [id number] Discharge Date: 12/09/2018 12:00:00 AM ATTENTION: The Clinical Documentation Specialists (CDI) and [facility] Coding Staff appreciate your assistance in clarifying documentation. Please respond to the clarification below the line at the bottom and electronically sign. The CDI & [facility] Coding staff will review the response and follow-up if needed. Please note: Queries are made part of the Legal Health Record. If you have any questions, please contact the author of this message via ITS. Dr. Burnette, Conflicting documentation has been found in the medical record: The patient was found to have ischemic bowel with pneumatosis. Documentation in the progress note states that there was no evidence of perforation during the procedure. Documentation in your 12/08 progress note states the patient had bowel perforation. Documentation in your earlier progress notes state near perforation. Dr. Sotelo also documents perforation in his progress notes. History/Risk Factors: 78 yo male with a history of CAD, CHF and hyperlipidemia. Clinical Indicators: Right sided abdominal pain. Radiology findings: Abd X-ray: Distended loops of small and large bowel. No evident pneumoperitoneum. CT Abd/Pelv: Stomach distended. Jejunum and ileum prominently dilated. LUQ gas bubbles may represent pneumatosis. Vital Signs: T. 97.5, P. 104, R. 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 Bowel Perforation Ruled Out Bowel Perforation Other explanation of clinical findings Unable to determine (no explanation for clinical findings) My opinion was already dictated in my note MTDD
--- NOTE | 2019-01-07 13:21 | P.DS ---
Providers Date of admission: 12/02/18 09:43 Expected date of discharge: 01/09/19 Attending physician: Saadia Cedillo Consults: 11/30/18 22:01 Consult Physician Routine Consulting Provider: Jose Manuel Chicas Consult Reason/Comments: Elevated troponin Do you want consulting provider notified?: Yes, Notify in am 12/01/18 11:00 Consult Physician Routine Consulting Provider: Terry Gilman Consult Reason/Comments: gall stones, sludge on ultrasound report Do you want consulting provider notified?: Yes 12/01/18 11:20 Consult Physician Urgent Consulting Provider: Lucas Ruiz Consult Reason/Comments: urinary retention, unable to pass catheter Do you want consulting provider notified?: Yes 12/01/18 12:40 Consult Physician Urgent Consulting Provider: Sivan Brady Consult Reason/Comments: tachypnea Do you want consulting provider notified?: Yes 12/05/18 07:58 Consult Physician Urgent Consulting Provider: Amando Sotelo Consult Reason/Comments: ICU Do you want consulting provider notified?: Already Contacted 12/05/18 10:36 Consult Physician Urgent Consulting Provider: Chevy Ching Consult Reason/Comments: Nephrology clearance for PICC placement Do you want consulting provider notified?: Yes 12/07/18 10:35 Consult Physician Urgent Consulting Provider: Raheel Dubon Consult Reason/Comments: afib rvr Do you want consulting provider notified?: Yes Primary care physician: Agata Faye [place] Course: 78-year-old that was made hospice after intra-abdominal infection and sepsis secondary to bowel perforation. Preliminary cause of bowel perforation and peritonitis Patient Condition at Discharge: Fair Plan - Discharge Summary Discharge Rx Participant: No New Discharge Prescriptions: No Action Clopidogrel [Plavix] 75 mg PO DAILY #30 tab Carvedilol [Coreg] 6.25 mg PO BID Potassium Chloride [Klor-Con 20] 40 meq PO DAILY Furosemide [Lasix] 40 mg PO BID Cyclobenzaprine [Flexeril] 10 mg PO BID PRN PRN Reason: Muscle Spasm Atorvastatin Calcium [Lipitor] 40 mg PO HS Spironolactone 25 mg PO DAILY Discharge Medication List Clopidogrel [Plavix] 75 mg PO DAILY #30 tab 08/04/16 [Rx] Carvedilol [Coreg] 6.25 mg PO BID 03/22/17 [History] Furosemide [Lasix] 40 mg PO BID 12/31/16 [History] Potassium Chloride [Klor-Con 20] 40 meq PO DAILY 12/31/16 [History] Atorvastatin Calcium [Lipitor] 40 mg PO HS 11/30/18 [History] Cyclobenzaprine [Flexeril] 10 mg PO BID PRN 11/30/18 [History] Spironolactone 25 mg PO DAILY 11/30/18 [History] Follow up Appointment(s)/Referral(s): Terry Gilman MD [Medical Doctor] - 1 Week Yuan Parmar MD [Primary Care Provider] - 1-2 days Jennifer Anthony MD [STAFF PHYSICIAN] - 4 Weeks Patient Instructions/Handouts: Ileostomy Care (GEN) Activity/Diet/Wound Care/Special Instructions: Ileostomy care for transition post hospital Date of last pouching system change: 12.06.2018 Current ilesotmy products for transition: Convatec flange #[id number] (three from hospital) Convatec pouching system # [id number] (three form hospital) No sting prep (10 ) from hospital Osotmy powder as needed for around the stoma if irritated Pouching system is to be empied when 1/3 to 1/2 full Pouching system is to be changed every 3-5 days unless otherwise directed Discharge Disposition: - Preliminary Cause of Preliminary Cause of : Peritonitis from bowel perforation
--- NOTE | 2019-01-09 12:40 | CDI ---
Documentation Clarification Form Date: 01/09/2019 12:37:00 PM From: Annette Cooper Phone: If you have a question regarding this query, please contact Garima Mauro at [phone] between 8am and 5pm. Admit Date: 12/02/2018 9:43:00 AM Patient Name: Brandon Jj Visit Number: [id number] Discharge Date: 12/09/2018 12:00:00 AM ATTENTION: The Clinical Documentation Specialists (CDI) and [facility] Coding Staff appreciate your assistance in clarifying documentation. Please respond to the clarification below the line at the bottom and electronically sign. The CDI & [facility] Coding staff will review the response and follow-up if needed. Please note: Queries are made part of the Legal Health Record. If you have any questions, please contact the author of this message via ITS. Dr. Michael Burnette The patient presented with the following acute ischemic bowel with perforation. Documentation in the discharge summary states that the patient also had sepsis. This is the only time that sepsis was documented. History/Risk Factors: Ischemic bowel with perforation and intra-abdominal infection. Clinical Indicators: Metabolic encephalopathy, intra-abdominal infection Treatment: Antibiotics: IV Levaquin, IV Flagyl IV Bolus: 1 Liter bolus then @ 100 mls/hr Definition of Present on Admission (POA): A diagnosis present at the time the order for admission to inpatient status was written. For each diagnosis, documentation must be clear to determine if the condition was present at the time of the patients inpatient admission or developed during the hospital stay. Please clarify if sepsis was POA: ____Y = Yes, the condition was present at the time of the order for inpatient admission. ____N = No, the condition was not present at the time of the order for inpatient admission. __x__W = Clinically undetermined if the condition was present at the time of the order for inpatient admission. _W = Clinically undetermined if the condition was present at the time of the order for inpatient admission. MTDD
--- NOTE | 2019-01-11 18:04 | CDI ---
Documentation Clarification Form Date: 01/11/2019 5:50:33 PM From: Lilli Shin RN, CCDS Email: [email or web address] Admit Date: 12/02/2018 9:43:00 AM Patient Name: Brandon Jj Visit Number: [id number] Discharge Date: 12/09/2018 12:00:00 AM ATTENTION: The Clinical Documentation Specialists (CDI) and [facility] Coding Staff appreciate your assistance in clarifying documentation. Please respond to the clarification below the line at the bottom and electronically sign. The CDI & [facility] Coding staff will review the response and follow-up if needed. Please note: Queries are made part of the Legal Health Record. If you have any questions, please contact the author of this message via ITS. Dr. Michael Burnette Patient history/risk factors: status post exploratory laparotomy with partial colectomy and right-sided colostomy for bowel obstruction/perforation/peritonitis. Diagnosis of sepsis. New onset atrial fibrillation with rapid ventricular response. Clinical Indicators: hypotensive, unresponsive, low urine output, tachypneic. Breathing pattern was consistent with Biot's breathing, lethargic and sleepy. Vitals: BP low of 59/38, HR 140's Treatment: Norepinephrine, Amiodarone, IVF's, IV antibiotics, ICU monitoring In your professional opinion, can you please clarify if this clinically significant for: Septic Shock Cardiogenic Shock Hypovolemic Shock Other, please specify Unable to determine MTDD
== END 2018-12-09 | disposition expired | DRG 329 ==
LOC: EC 12:29 → 3SCARD 14:39 → OBSVTOIN 12-02 09:43 → 2SICU 12-04 19:25
PROVIDERS: ADMIT Internal Medicine; ATTEND Internal Medicine
PROC: 0D1B0Z4 Bypass Ileum to Cutaneous, Open Approach (ICD-10-PCS; 2018-12-05)
PROC: 3E0336Z Introduction of Nutritional Substance into Peripheral Vein, Percutaneous Approach (ICD-10-PCS; 2018-12-05)
PROC: 03HC33Z Insertion of Infusion Device into Left Radial Artery, Percutaneous Approach (ICD-10-PCS; 2018-12-05)
PROC: 0DBM0ZZ Excision of Descending Colon, Open Approach (ICD-10-PCS; principal; 2018-12-05 00:21)
PROC: 0DBL0ZZ Excision of Transverse Colon, Open Approach (ICD-10-PCS; principal; 2018-12-05 00:21)
DX: K55.039 Acute (reversible) ischemia of large intestine, extent unspecified (principal); G92 Toxic encephalopathy; I21.A1 Myocardial infarction type 2; K63.1 Perforation of intestine (nontraumatic); A41.9 Sepsis, unspecified organism; K65.9 Peritonitis, unspecified; E87.2 Acidosis; I13.0 Hypertensive heart and chronic kidney disease with heart failure and stage 1 through stage 4 chronic kidney disease, or unspecified chronic kidney disease; I50.22 Chronic systolic (congestive) heart failure; K56.609 Unspecified intestinal obstruction, unspecified as to partial versus complete obstruction; K80.00 Calculus of gallbladder with acute cholecystitis without obstruction; N17.9 Acute kidney failure, unspecified; J98.11 Atelectasis; I95.9 Hypotension, unspecified; Z66 Do not resuscitate; I48.0 Paroxysmal atrial fibrillation; D69.6 Thrombocytopenia, unspecified; E86.0 Dehydration; E87.5 Hyperkalemia; J44.9 Chronic obstructive pulmonary disease, unspecified; K66.8 Other specified disorders of peritoneum; J84.10 Pulmonary fibrosis, unspecified; R15.9 Full incontinence of feces; I25.5 Ischemic cardiomyopathy; N18.3 Chronic kidney disease, stage 3 (moderate); K76.89 Other specified diseases of liver; R31.9 Hematuria, unspecified; E78.5 Hyperlipidemia, unspecified; F17.200 Nicotine dependence, unspecified, uncomplicated; H91.90 Unspecified hearing loss, unspecified ear; I25.10 Atherosclerotic heart disease of native coronary artery without angina pectoris; I25.2 Old myocardial infarction; I73.9 Peripheral vascular disease, unspecified; I77.819 Aortic ectasia, unspecified site; K21.9 Gastro-esophageal reflux disease without esophagitis; K82.8 Other specified diseases of gallbladder; N32.0 Bladder-neck obstruction; N36.8 Other specified disorders of urethra; N40.1 Benign prostatic hyperplasia with lower urinary tract symptoms; R33.8 Other retention of urine; F32.9 Major depressive disorder, single episode, unspecified; R91.1 Solitary pulmonary nodule; I83.90 Asymptomatic varicose veins of unspecified lower extremity; K43.9 Ventral hernia without obstruction or gangrene; N32.9 Bladder disorder, unspecified; Z79.02 Long term (current) use of antithrombotics/antiplatelets; Z79.899 Other long term (current) drug therapy; Z88.2 Allergy status to sulfonamides; Z85.828 Personal history of other malignant neoplasm of skin; Z95.5 Presence of coronary angioplasty implant and graft; Z86.718 Personal history of other venous thrombosis and embolism; Z90.79 Acquired absence of other genital organ(s)
CPT/HCPCS: 36415; 36573; 70450; 71045; 71046; 74018; 74176; 76705; 76770; 80048; 80053; 80061; 80306; 81001; 82140; 82248; 82330; 82533; 82550; 82805; 83605; 83690; 83735; 84100; 84132; 84484; 85025; 85610; 85730; 86803; 86850; 86900; 86901; 87040; 87340; 88309; 93005; 94002; 94003; 94640; 96360; 96361; 99285